=== PATIENT | female | born 1960 | race Caucasian/White ===

== ENCOUNTER 2020-01-01 16:49 | Inpatient (IN) ==
[2020-01-01] MEDS ORDERED: SODIUM CHLORIDE 0.9% 1000ML 1,000 ML IV SCH (17:30)
[2020-01-01] MEDS ORDERED: ONDANSETRON INJ 2 MG/ML 2 ML VIAL IV STA (17:30)
[2020-01-01] MEDS: MoRPHine SULFATE 4 MG/ML 1 ML CARP\\VIAL IV PRN ×4 (17:41→23:25)
[2020-01-01] MEDS ORDERED: IOVERSOL 100ml IV ONE (17:43)
[2020-01-01 17:47] LABS: Basophils # (auto) 0.02 K/uL (0-0.2); Basophils % (auto) 0.2 %; Eosinophils # (auto) 0.05 K/uL (0-0.5); Eosinophils % (auto) 0.4 %; Hematocrit (blood only) 50.6 % (37-47); Hemoglobin 17.1 g/dL (12.0-16.0); Immature Granulocytes # (auto) 0.02 K/uL (0.00-0.02); Immature Granulocytes % (auto) 0.2 %; Lymphocytes # (auto) 2.13 K/uL (1.2-3.4); Lymphocytes % (auto) 16.9 %; Mean Corpuscular Hemoglobin 31.1 pg (25-34); Mean Corpuscular Hgb Conc 33.8 g/dL (32-36); Mean Platelet Volume 11.7 fL (7.4-10.4); Monocytes # (auto) 0.99 K/uL (0.11-0.59); Monocytes % (auto) 7.9 %; Neutrophils # (auto) 9.39 K/uL (1.4-6.5); Neutrophils % (auto) 74.4 %; Platelet Count 238 K/uL (130-400); RDW Coefficient of Variation 14.3 % (11.5-14.5); RDW Standard Deviation 48.4 fL (36.4-46.3)
[2020-01-01 17:56] LABS: iSTAT Hemoglobin 17.7 g/dl (12.0-16.0); iSTAT Ionized Calcium 1.16 mmol/l (1.12-1.32); iSTAT Potassium 3.9 mmol/L (3.3-5.0)
--- NOTE | 2020-01-01 17:58 | Emergency Department Note ---
Impression & Plan Diverticulitis, Abdominal pain ED Provider Note NAME: PATY RIGGINS AGE: 59 SEX: F : 1960 ARRIVES VIA: Walk-In INFORMANT: Patient, ED PROVIDER(S): Josef Regalado DO CHIEF COMPLAINT: Abdominal pain HPI: The patient is a 59-year-old female who presented to the emergency department through triage for an evaluation of abdominal pain. The patient has a history of diverticulitis. Approximately 2 to 3 days ago she started having abdominal pain which was lower. She also started having fever. The patient states that she has had constipation. She started noticing severe nausea. The patient states her symptoms are moderate to severe at this time. She went to see her primary care physician and was sent to the emergency department because of severe abdominal pain with concerns for an acute abdomen. The patient denies having any chest pain. She denies having any difficulty breathing. The patient denies having any rectal bleeding. She states that normally she does note some rectal bleeding with her diverticular disease. The patient did not take any medication for fever recently. She has been taking [id number] medication for pain with only minimal relief. ROS: See above HPI for pertinent positives & negatives. A total of 10 systems reviewed and were otherwise negative. PAST MEDICAL HISTORY: See Below PAST SURGICAL HISTORY: See Below FAMILY HISTORY: See Below SOCIAL HISTORY: See Below HOME MEDICATIONS: See Below ALLERGIES: See Below VITALS: See Below PHYSICAL EXAMINATION: GENERAL: The patient is awake and alert. She is very anxious appearing and appears to be uncomfortable. EYES: The conjunctivae are clear. The pupils are round and reactive. EARS, NOSE, MOUTH AND THROAT: The nose is without any evidence of any deformity. Mucous membranes are moist. Tongue is midline. NECK: The neck is nontender and supple. RESPIRATORY: Normal respiratory effort is noted there is no evidence of wheezing rhonchi or rales CARDIOVASCULAR: Regular rate and rhythm noted there no murmurs rubs or gallops normal S1 normal S2. GASTROINTESTINAL: The abdomen is mildly distended but soft. There is significant guarding in both lower quadrants. There is specific tenderness in the mid right quadrant. MUSCULOSKELETAL/EXTREMITIES: There is no evidence of gross deformity full range of motion is noted in the hips and shoulders. SKIN: There is no obvious evidence of any rash. There are no petechiae, pallor or cyanosis noted. NEUROLOGIC: Patient is awake alert and oriented x3. MEDICAL DECISION MAKING: The patient is a 59-year-old female who presented to the emergency department for an evaluation of lower abdominal pain. The patient has a history of diverticulitis and was seen at her primary care physician's office. She was sent to the emergency department because of the severity of pain. On my evaluation the patient appeared to have very significant abdominal pain. She was guarding in the lower abdomen. I was very concerned this could represent a surgical abdomen. For this reason further laboratory and radiographic studies were obtained including a CT the abdomen and pelvis. This appears to be consistent with significant diverticulitis as well as dilated small bowel. This could represent a reactive ileus or possibly an early small bowel obstruction. For this reason I discussed her case with the on-call [facility] group. They have agreed to evaluate the patient in the emergency department for further management and disposition. I discussed the patient's laboratory and radiographic studies with her. She was treated with IV fluids IV pain medication and IV antibiotics. She was feeling much better on subsequent reevaluation. Triage Nursing notes reviewed. Prior medical records reviewed Vital Signs: reviewed and remarkable for no significant abnormalities Differential diagnosis: Etiologies such as appendicitis, diverticulitis, obstruction, inflammatory bowel disease, renal colic, PUD, biliary pathology, pancreatitis, mesenteric ischemia, aortic pathology, infections, genitourinary, UTI, perforated viscus, as well as others were entertained. ER treatment provided: See below Diagnostics interpreted by me: ECG: none Cardiac Monitoring: An order was placed for continuous cardiac monitoring. The monitor shows a rate of 88 with sinus rhythm. Laboratory studies: As stated above and show below. Imaging studies: See below Consultation(s): 1900: I discussed this case with Connie who is on-call for the [facility]. They will evaluate the patient in the emergency department f or further management and disposition. Past Med/Surg History Medical History Fibromyalgia (Chronic) HLD (hyperlipidemia) (Chronic) Multiple sclerosis (Chronic) Tobacco use disorder (Chronic) Family History Other Family history non-contributory Social History Smoking Status: Current every day smoker Tobacco Type: Cigarettes Second Hand Exposure: No; Hx Alcohol Use: Yes Alcohol type: beer, wine and hard liquor Hx Substance Use: No Preferred Language: Kazakh Communication Ability: Effective Beliefs That Will Affect Care: None Current Living Situation: Spouse Feels Safe at Home: Yes Allergies Allergies Allergy/AdvReac Type Severity Reaction Status Date / Time amoxicillin AdvReac Intermediate YEAST Verified 10/31/19 11:38 INFECTION Home Meds Home Medications Medication Instructions Recorded Confirmed omeprazole 20 mg PO HS 04/10/18 11/12/19 Previous Rx's Medication Instructions Recorded metoprolol succinate 25 mg 25 mg PO DAILY #90 tab 05/09/19 tablet,extended release 24 hr aspirin 81 mg tablet,delayed 81 mg PO DAILY #90 tab 06/01/19 release atorvastatin 80 mg tablet 80 mg PO QPM #90 tab 06/01/19 clopidogrel 75 mg tablet 75 mg PO DAILY #90 tab 11/26/19 Results & Data (ED) Vital Signs Vital Signs - 24 hr 01/01/20 16:56 Temperature 36.9 C Temperature Source Oral Pulse Rate 100 H Pulse Rhythm Regular Pulse Strength Normal Respiratory Rate 18 Respiratory Effort / Characteristics Non-Labored Spontaneous Respiratory Depth Normal Respiratory Pattern Regular Blood Pressure 111/79 Blood Pressure Mean 89 Blood Pressure Position Sitting Pulse Oximetry 96 Oxygen Delivery Method Room Air Sepsis Recent Fever Within 48 Hours No Sepsis New/Unexplained Change in Mental Status No Sepsis Action Taken by Nursing No Action Required Home Medications Current Medication List: was personally reviewed by me Laboratory Data Attestation: I reviewed the patient's lab results. Result diagrams: 01/01/20 17:30 01/01/20 17:30 Lab Results 01/01/20 01/01/20 01/01/20 Range/Units 17:30 17:30 17:42 WBC 12.60 H (4.8-10.8) K/uL RBC 5.50 H (4.2-5.4) M/uL Hgb 17.1 H (12.0-16.0) g/dL POC Hgb 17.7 H (12.0-16.0) g/dl Hct 50.6 H (37-47) % POC Hct 52 H (37-47) % MCV 92.0 (80-100) fL MCH 31.1 (25-34) pg MCHC 33.8 (32-36) g/dL RDW Std Deviation 48.4 H (36.4-46.3) fL RDW Coeff of Rick 14.3 (11.5-14.5) % Plt Count 238 (130-400) K/uL MPV 11.7 H (7.4-10.4) fL Immature Gran % (Auto) 0.2 % Neut % (Auto) 74.4 % Lymph % (Auto) 16.9 % [place] % (Auto) 7.9 % Eos % (Auto) 0.4 % Baso % (Auto) 0.2 % Neut # (Auto) 9.39 H (1.4-6.5) K/uL Lymph # (Auto) 2.13 (1.2-3.4) K/uL [place] # (Auto) 0.99 H (0.11-0.59) K/uL Eos # (Auto) 0.05 (0-0.5) K/uL Baso # (Auto) 0.02 (0-0.2) K/uL Immature Gran # (Auto) 0.02 (0.00-0.02) K/uL POC Sodium 136 (135-144) mmol/L Sodium 134 L (136-145) mmol/L POC Potassium 3.9 (3.3-5.0) mmol/L Potassium 3.9 (3.5-5.1) mmol/L POC Chloride 103 (101-112) mmol/L Chloride 105 (98-107) mmol/L Carbon Dioxide 22 (21-32) mmol/L POC Total CO2 22 L (24-31) mmol/L Anion Gap 7.0 (3-11) POC Anion Gap 15.0 L (16-25) mmol/L POC BUN 15 (7-18) mg/dl BUN 12 (7-18) mg/dl Creatinine 1.17 (0.6-1.2) mg/dl POC Creatinine 1.0 (0.6-1.3) mg/dl Est Cr Clr Drug Dosing 57.5 ml/min Est GFR ( Amer) 58.7 Est GFR (Non-Af Amer) 50.6 BUN/Creatinine Ratio 10.6 (10-20) Glucose 81 (70-99) mg/dl POC Glucose (other) 85 (70-99) mg/dl Calcium 9.8 (8.5-10.1) mg/dl POC Ioniz Calcium Monty 1.16 (1.12-1.32) mmol/l Total Bilirubin 1.0 (0.2-1) mg/dl AST 21 (15-37) U/L ALT 50 (12-78) U/L Alkaline Phosphatase 105 (45-117) U/L Total Protein 7.9 (6.4-8.2) gm/dl Albumin 3.6 (3.4-5.0) gm/dl Globulin 4.3 H (2.5-4.0) gm/dl Albumin/Globulin Ratio 0.8 L (0.9-2) Lipase 97 (73-393) U/L Specimen Hemolysis Administered Medications Morphine Sulfate (Morphine Sulfate) 4 mg IV Q15M PRN PRN Reason: Pain Stop: 01/15/20 17:29 Last Admin: 01/01/20 18:12 Dose: 4 mg Documented by: [id number] Admin: 01/01/20 17:41 Dose: 4 mg Documented by: [id number] Discontinued Medications Fluconazole (Diflucan) 150 mg PO NOW ONE Stop: 01/01/20 18:16 Last Admin: 01/01/20 18:43 Dose: 150 mg Documented by: [id number] Sodium Chloride (Nss 1000ml) 1,000 mls @ 999 mls/hr IV .Q1H1M [place] Stop: 01/01/20 18:30 Last Infusion: 01/01/20 18:40 Dose: 0 mls/hr Documented by: [id number] Admin: 01/01/20 17:41 Dose: 999 mls/hr Documented by: [id number] Piperacillin Sod/Tazobactam Sod (Zosyn) 4.5 gm in 120 mls @ 240 mls/hr IV NOW ONE Stop: 01/01/20 18:36 Last Infusion: 01/01/20 18:46 Dose: 0 mls/hr Documented by: [id number] Admin: 01/01/20 18:19 Dose: 240 mls/hr Documented by: [id number] Ioversol (Optiray 320 100ml) 93 ml IV ONCE ONE Stop: 01/01/20 17:44 Last Admin: 01/01/20 17:44 Dose: 93 ml Documented by: [id number] Ondansetron HCl (Zofran) 4 mg IV NOW STA Stop: 01/01/20 17:31 Last Admin: 01/01/20 17:41 Dose: 4 mg Documented by: [id number] Imaging Data Radiologist's Impression: CT SCAN OF THE ABDOMEN AND PELVIS WITH IV CONTRAST CLINICAL HISTORY: Right lower quadrant abdominal pain. COMPARISON STUDY: Abdominal CT dated 12/06/2017. TECHNIQUE: Following the IV administration of 93 cc of Optiray 320, CT scan of the abdomen and pelvis is performed from the lung bases to the proximal femora. Images are reviewed in the axial, sagittal, and coronal planes. IV contrast was administered without complication. A dose lowering technique was utilized adhering to the principles of ALARA. CT DOSE: 968.68 mGy.cm FINDINGS: Lung bases: The heart is normal in size and without pericardial effusion. There is elevation of left hemidiaphragm and mild bibasilar atelectasis. The lung bas es are otherwise clear as visualized. There is a tiny hiatal hernia. Liver: The contrast-enhanced liver is normal in size, contour, and attenuation. There is no intrahepatic biliary ductal dilatation. The hepatic veins and portal veins are patent. Gallbladder: Unremarkable. Spleen: Normal in size and attenuation. Pancreas: Mildly atrophic and grossly unremarkable. Adrenal glands: Unremarkable. Kidneys: The contrast enhanced kidneys demonstrate cortical atrophy and are without hydronephrosis. An extrarenal pelvis is noted on the left. The kidneys enhance symmetrically. Scattered subcentimeter cortical hypodensities likely represent cysts but are too small for definitive characterization. Abdominal vasculature: The abdominal aorta is normal in course and caliber noting moderate atherosclerotic calcification. Bowel: There is moderate colonic diverticulosis. There is significant wall thickening and edema involving the sigmoid colon with surrounding pericolonic inflammation and trace fluid. Findings are consistent with acute diverticulitis. No organized fluid collection is seen to indicate abscess. The upstream colon is mildly distended and fluid-filled. No significant colonic wall thickening or pericolonic inflammation is seen. Scattered subcentimeter pericolonic lymph nodes are noted around the sigmoid. The appendix is well-visualized and normal. Peritoneum: There is no intraperitoneal free air or abdominal ascites. Lymphadenopathy: None. Pelvic viscera: The bladder is normal as visualized. The uterus is surgically absent. No adnexal lesion is seen. Skeletal structures: The skeletal structures are osteopenic. Mild lumbosacral spondylosis is noted. No lytic or blastic lesions are seen. IMPRESSION: 1. There is moderate colonic diverticulosis with evidence of acute sigmoid diverticulitis. 2. No intraperitoneal free air is identified and there is no organized fluid collection to suggest abscess. 3. The upstream colon is mildly distended and fluid-filled. This could represent a mild reactive ileus or possibly mild colonic obstruction secondary to inflamm ation/edema of the sigmoid. Nonemergent follow-up colonoscopy is recommended to exclude the less likely possibility of obstructing mass lesion. 4. The appendix is normal in appearance. 5. Additional findings as above. ACT 112: Negative or not required by law. Electronically signed by: Mumtaz Suggs M.D. 01/01/2020 6:37 PM Dictated: 01/01/201828 Transcribed: 01/01/201828 Blood Pressure Blood Pressure Findings: Normal blood pressure Discharge Plan Visit Data Chief Complaint: Abdominal Pain Stated Complaint: ABD PAIN, FEVER, NAUSEA, VOMITING ED Provider: Josef Regalado Discharge Problem: Diverticulitis, Abdominal pain Patient Disposition: Being Evaluated by Hospitalist Condition: Good Forms Stand Alone Forms: [facility] [employer] Prescriptions Prescriptions: No Action metoprolol succinate 25 mg tablet extended release 24 hr 25 mg PO DAILY Qty: 90 RF: 2 aspirin 81 mg tablet,delayed release (DR/EC) 81 mg PO DAILY Qty: 90 RF: 2 atorvastatin 80 mg tablet 80 mg PO QPM Qty: 90 RF: 2 clopidogrel 75 mg tablet 75 mg PO DAILY Qty: 90 RF: 3 omeprazole 20 mg Capsule,Delayed Release(Dr/Ec) 20 mg PO HS RF: 0 Referrals Referrals: [place] MD [Primary Care Provider] -
[2020-01-01 18:05] LABS: Albumin Level 3.6 gm/dl (3.4-5.0); BUN Creatinine Ratio 10.6 (10-20); Calcium 9.8 mg/dl (8.5-10.1); Creatinine Clr Calc Pharmacy 57.5 ml/min; Est GFR (African American) 58.7; Est GFR (Non-African American) 50.6; Potassium 3.9 mmol/L (3.5-5.1)
[2020-01-01] MEDS ORDERED: PIPERACILLIN/TAZOBACTAM 4.5 GM/120 ML BAG IV ONE (18:07)
[2020-01-01] MEDS ORDERED: PIPERACILL/TAZOBAC CONSULT ACTIVE PRN ×2 (18:07→20:46)
[2020-01-01] MEDS ORDERED: FLUCONAZOLE 50 MG TAB PO ONE (18:15)
[2020-01-01 18:38] LABS: Albumin Globulin Ratio 0.8 (0.9-2); Globulin 4.3 gm/dl (2.5-4.0); Total Protein 7.9 gm/dl (6.4-8.2)
--- NOTE | 2020-01-01 18:38 | CT Scan Report ---
CT SCAN OF THE ABDOMEN AND PELVIS WITH IV CONTRAST CLINICAL HISTORY: Right lower quadrant abdominal pain. COMPARISON STUDY: Abdominal CT dated 12/06/2017. TECHNIQUE: Following the IV administration of 93 cc of Optiray 320, CT scan of the abdomen and pelvi s is performed from the lung bases to the proximal femora. Images are reviewed in the axial, sagittal , and coronal planes. IV contrast was administered without complication. A dose lowering technique wa s utilized adhering to the principles of ALARA. CT DOSE: 968.68 mGy.cm FINDINGS: Lung bases: The heart is normal in size and without pericardial effusion. There is elevation of left hemidiaphragm and mild bibasilar atelectasis. The lung bases are otherwise clear as visualized. There is a tiny hiatal hernia. Liver: The contrast-enhanced liver is normal in size, contour, and attenuation. There is no intrahepa tic biliary ductal dilatation. The hepatic veins and portal veins are patent. Gallbladder: Unremarkable. Spleen: Normal in size and attenuation. Pancreas: Mildly atrophic and grossly unremarkable. Adrenal glands: Unremarkable. Kidneys: The contrast enhanced kidneys demonstrate cortical atrophy and are without hydronephrosis. A n extrarenal pelvis is noted on the left. The kidneys enhance symmetrically. Scattered subcentimeter cortical hypodensities likely represent cysts but are too small for definitive characterization. Abdominal vasculature: The abdominal aorta is normal in course and caliber noting moderate atheroscle rotic calcification. Bowel: There is moderate colonic diverticulosis. There is significant wall thickening and edema invol ving the sigmoid colon with surrounding pericolonic inflammation and trace fluid. Findings are consis tent with acute diverticulitis. No organized fluid collection is seen to indicate abscess. The upstre am colon is mildly distended and fluid-filled. No significant colonic wall thickening or pericolonic inflammation is seen. Scattered subcentimeter pericolonic lymph nodes are noted around the sigmoid. T he appendix is well-visualized and normal. Peritoneum: There is no intraperitoneal free air or abdominal ascites. Lymphadenopathy: None. Pelvic viscera: The bladder is normal as visualized. The uterus is surgically absent. No adnexal lesi on is seen. Skeletal structures: The skeletal structures are osteopenic. Mild lumbosacral spondylosis is noted. N o lytic or blastic lesions are seen. IMPRESSION: 1. There is moderate colonic diverticulosis with evidence of acute sigmoid diverticulitis. 2. No intraperitoneal free air is identified and there is no organized fluid collection to suggest ab scess. 3. The upstream colon is mildly distended and fluid-filled. This could represent a mild reactive ileu s or possibly mild colonic obstruction secondary to inflammation/edema of the sigmoid. Nonemergent fo llow-up colonoscopy is recommended to exclude the less likely possibility of obstructing mass lesion. 4. The appendix is normal in appearance. 5. Additional findings as above. ACT 112: Negative or not required by law. Electronically signed by: Mumtaz Suggs M.D. 01/01/2020 6:37 PM
--- NOTE | 2020-01-01 20:08 | History & Physical Report ---
Date of Service January 01, 2020 Assessment & Plan (1) Acute diverticulitis of intestine: (2) Ileus: This is a 59-year-old female with significant PMH of CAD with history of 1 FITZ to the mid circumflex in 2018, HLD, MS, tobacco abuse, GERD who presents to ED secondary to left lower quadrant pain x2 days. In ED patient remained hemodynamically stable, on admission she was mildly tachycardic but this was improved during my evaluation. Lab work notable for leukocytosis at 12.6K, H&H 17.1 and 50.6, platelet 238, sodium 134, BUN 12, creatinine 1.17, LFTs WNL. CT scan abdomen pelvis notable moderate colonic diverticulosis with evidence of acute sigmoid diverticulitis. No intraperitoneal free air is identified and there is no organized fluid collection to suggest abscess. The upstream colon is mildly distended and fluid-filled. This could represent a mild reactive ileus or possibly mild colonic obstruction secondary to inflammation/edema of the sigmoid. Nonemergent follow-up colonoscopy is recommended to exclude the less likely possibility of obstructing mass lesion. In ED she received IVF, IV morphine and IV Zosyn. Pt does not meet sepsis criteria on admission per current CMS guidelines, pt with leukocytosis 12.6k, but afebrile, HR 80s, RR 19 admit to med tele continue IV zosyn bowel rest, NPO except sips, chips, meds IVF NSS @ 110cc/hr 1g APAP q8hr, prn morphine severe pain,antiemetics consult general surgery blood cultures ordered (3) Dehydration: clinically, mild elevation in H/H, Cr not RENA continue IVF monitor renal fxn (4) Coronary artery disease: no chest pain/sob continue ASA, plavix, statin, metoprolol (5) HLD (hyperlipidemia): continue statin (6) Multiple sclerosis: no acute exac not on any medications monitor (7) Tobacco use disorder: 1 pack/week x 40 years no tobacco in past few days due to ill feeling encourage cessation no nicotine patch at this time (8) DVT prophylaxis: Lovenox, encourage ambulation Disposition: admit to med tele Follow up: PCP Dr. Grove upon discharge Pt was seen and examined in collaboration with Dr. Gutiérrez, please see addendum History of Present Illness Chief Complaint: Left lower quadrant abdominal pain x2 days. Primary Care Provider: Eagle Grove MD This is a 59-year-old female with significant PMH of CAD with history of 1 FITZ to the mid circumflex in 2018, HLD, MS, tobacco abuse, GERD who presents to ED secondary to left lower quadrant pain x2 days. Symptoms initially started on Tuesday with complaints of left lower quadrant abdominal pain with radiation to suprapubic and right lower quadrant. Pain is mostly constant, waxes and wanes in severity, made worse with p.o. intake, improved with rest, tried OTC APAP with no relief and is currently 8/10. She has had history of diverticulitis in the past, approximately 1 a year. She denies prior history of colonoscopy. This episode is different as for the past 2 days has also been experiencing nausea and emesis of clear, white phlegm. She did have one episode of fever, low 100s with associated chills. Denies any sweats, lightheadedness, dizziness, chest pain, shortness of breath, palpitations, cough, dysuria, increased urgency or frequency with urination, melena, medic easier, diarrhea. Her last normal BM was 4 days ago and has been more constipated. Typically is not constipated. Prior episodes of diverticulitis have presented with hematochezia. In ED patient remained hemodynamically stable, on admission she was mildly tachycardic but this was improved during my evaluation. Lab work notable for leukocytosis at 12.6K, H&H 17.1 and 50.6, platelet 238, sodium 134, BUN 12, creatinine 1.17, LFTs WNL. CT scan abdomen pelvis notable moderate colonic diverticulosis with evidence of acute sigmoid diverticulitis. No intraperitoneal free air is identified and there is no organized fluid collection to suggest abscess. The upstream colon is mildly distended and fluid-filled. This could represent a mild reactive ileus or possibly mild colonic obstruction secondary to inflammation/edema of the sigmoid. Nonemergent follow-up colonoscopy is recommended to exclude the less likely possibility of obstructing mass lesion. In ED she received IVF, IV morphine and IV Zosyn. Allergies Allergy/AdvReac Type Severity Reaction Status Date / Time amoxicillin AdvReac Intermediate YEAST Verified 01/01/20 19:24 INFECTION Home Medications Home Medications Medication Instructions Recorded Confirmed Type omeprazole 20 mg PO HS 11/19/18 08/11/20 History metoprolol succinate 25 mg 25 mg PO DAILY #90 tab 05/09/19 01/01/20 Rx tablet,extended release 24 hr aspirin 81 mg tablet,delayed 81 mg PO DAILY #90 tab 06/01/19 01/01/20 Rx release clopidogrel 75 mg tablet 75 mg PO DAILY #90 tab 11/26/19 01/01/20 Rx atorvastatin 80 mg PO DAILY 01/01/20 01/01/20 History Past Med/Surg History Medical History Coronary artery disease HLD (hyperlipidemia) Multiple sclerosis ST elevation myocardial infarction (STEMI) of inferior wall Tibial plateau fracture, left (05/01/14) Tobacco use disorder Surgical History History of cardiac cath 1 FITZ to mid circumflex S/P hammer toe correction "10/2017" S/P hysterectomy S/P ORIF (open reduction internal fixation) fracture "Of left tibial plateau fracture in 2013" Status post angioplasty with stent Family History Sister Bipolar disorder Mother Stroke Father Coronary heart disease Myocardial infarction Other Family history non-contributory Social History Smoking Status: Current every day smoker Tobacco Type: Cigarettes Years Smoked: 40; Cigarettes Per Day: 1-3; Second Hand Exposure: No; Do You Dip or Chew Tobacco: No; Hx Alcohol Use: No Hx Substance Use: No Preferred Language: Sinhala Communication Ability: Effective Business Services Director Required: No Beliefs That Will Affect Care: None Current Living Situation: Spouse current occupational status: employed current occupation: [employer] Feels Safe at Home: Yes Review of Systems Review of Systems: All systems reviewed & are unremarkable except as noted in HPI & below Physical Exam Physical Exam: Constitutional: WD/WN, vitals as above, NAD, sitting up in bed, pleasant, conversing easily Head: Normocephalic, Atraumatic Eyes: PERRL, conjunctivae normal, anicteric sclerae ENMT: external ear and nose normal, oropharynx normal Neck: trachea midline, no thyromegaly normal visual inspection Respiratory: normal respiratory effort, lungs clear to auscultation, no wheeze, rales, rhonchi. Normal insp/exp effort, no accessory muscle use Cardiovascular: RRR, no murmur, no edema Vessels: no JVD or carotid bruit Chest: normal inspection of chest Abdomen: Soft, hypoactive bowel sounds, obese abdomen, tender to light and deep palpation in right lower quadrant, suprapubic area and left lower quadrant, no rebound, no guarding, no rigidity, no hepatosplenomegaly Musculoskeletal: no cyanosis or clubbing, extremities motor strength 5/5 Skin: no rashes, warm and dry normal turgor Neurologic: PERRL, EOMI, accommodation nl, no face palsy, no dysarthria CN's II-XI intact bilaterally and moves all extremities Psychiatric: A+Ox3, euthymic affect Lymphatic: no cervical or axillary lymphadenopathy : deferred Results & Data Results & Data ([facility]) Vital Signs (Past 12 Hours) Vital Signs Temp Pulse Pulse Resp BP BP Pulse Ox 01/01/20 19:43 88 19 137/95 95 01/01/20 16:56 36.9 C 100 H 18 111/79 96 Laboratory Results Short CBC 01/01/20 Range/Units 17:30 WBC 12.60 H (4.8-10.8) K/uL Hgb 17.1 H (12.0-16.0) g/dL Hct 50.6 H (37-47) % Plt Count 238 (130-400) K/uL BMP 01/01/20 17:30 Sodium 134 L Potassium 3.9 Chloride 105 Carbon Dioxide 22 BUN 12 Creatinine 1.17 Glucose 81 Calcium 9.8 Liver Function 01/01/20 Range/Units 17:30 Total Bilirubin 1.0 (0.2-1) mg/dl AST 21 (15-37) U/L ALT 50 (12-78) U/L Alkaline Phosphatase 105 (45-117) U/L Albumin 3.6 (3.4-5.0) gm/dl Diagnostic Findings CT abd/pelvis: FINDINGS: Lung bases: The heart is normal in size and without pericardial effusion. There is elevation of left hemidiaphragm and mild bibasilar atelectasis. The lung ba ses are otherwise clear as visualized. There is a tiny hiatal hernia. Liver: The contrast-enhanced liver is normal in size, contour, and attenuation. There is no intrahepatic biliary ductal dilatation. The hepatic veins and portal veins are patent. Gallbladder: Unremarkable. Spleen: Normal in size and attenuation. Pancreas: Mildly atrophic and grossly unremarkable. Adrenal glands: Unremarkable. Kidneys: The contrast enhanced kidneys demonstrate cortical atrophy and are without hydronephrosis. An extrarenal pelvis is noted on the left. The kidneys enhance symmetrically. Scattered subcentimeter cortical hypodensities likely represent cysts but are too small for definitive characterization. Abdominal vasculature: The abdominal aorta is normal in course and caliber noting moderate atherosclerotic calcification. Bowel: There is moderate colonic diverticulosis. There is significant wall thickening and edema involving the sigmoid colon with surrounding pericolonic inflammation and trace fluid. Findings are consistent with acute diverticulitis. No organized fluid collection is seen to indicate abscess. The upstream colon is mildly distended and fluid-filled. No significant colonic wall thickening or pericolonic inflammation is seen. Scattered subcentimeter pericolonic lymph nodes are noted around the sigmoid. The appendix is well-visualized and normal. Peritoneum: There is no intraperitoneal free air or abdominal ascites. Lymphadenopathy: None. Pelvic viscera: The bladder is normal as visualized. The uterus is surgically absent. No adnexal lesion is seen. Skeletal structures: The skeletal structures are osteopenic. Mild lumbosacral spondylosis is noted. No lytic or blastic lesions are seen. IMPRESSION: 1. There is moderate colonic diverticulosis with evidence of acute sigmoid diverticulitis. 2. No intraperitoneal free air is identified and there is no organized fluid collection to suggest abscess. 3. The upstream colon is mildly distended and fluid-filled. This could represent a mild reactive ileus or possibly mild colonic obstruction secondary to inflammation/edema of the sigmoid. Nonemergent follow-up colonoscopy is recommended to exclude the less likely possibility of obstructing mass lesion. 4. The appendix is normal in appearance. 5. Additional findings as above. Medications Administered Morphine Sulfate (Morphine Sulfate) 4 mg IV Q15M PRN PRN Reason: Pain Stop: 01/15/20 17:29 Last Admin: 01/01/20 19:15 Dose: 4 mg Documented by: [id number] Admin: 01/01/20 18:12 Dose: 4 mg Documented by: [id number] Admin: 01/01/20 17:41 Dose: 4 mg Documented by: [id number] Discontinued Medications Fluconazole (Diflucan) 150 mg PO NOW ONE Stop: 01/01/20 18:16 Last Admin: 01/01/20 18:43 Dose: 150 mg Documented by: [id number] Sodium Chloride (Nss 1000ml) 1,000 mls @ 999 mls/hr IV .Q1H1M [place] Stop: 01/01/20 18:30 Last Infusion: 01/01/20 18:40 Dose: 0 mls/hr Documented by: [id number] Admin: 01/01/20 17:41 Dose: 999 mls/hr Documented by: [id number] Piperacillin Sod/Tazobactam Sod (Zosyn) 4.5 gm in 120 mls @ 240 mls/hr IV NOW ONE Stop: 01/01/20 18:36 Last Infusion: 01/01/20 18:46 Dose: 0 mls/hr Documented by: [id number] Admin: 01/01/20 18:19 Dose: 240 mls/hr Documented by: [id number] Ioversol (Optiray 320 100ml) 93 ml IV ONCE ONE Stop: 01/01/20 17:44 Last Admin: 01/01/20 17:44 Dose: 93 ml Documented by: [id number] Ondansetron HCl (Zofran) 4 mg IV NOW STA Stop: 01/01/20 17:31 Last Admin: 01/01/20 17:41 Dose: 4 mg Documented by: [id number] Code Status & VTE Plan Code Status Full Code VTE Prophylaxis Plan VTE Prophylaxis will be ordered: Yes Supervising Physician Co-Signing Physician Notes Care coordinated with Connie Pardo PA-C. Agree with above note. Patient seen and examined. Please refer to her notes for full details. Vital signs reviewed. Physical exam: General exam: Alert and oriented. Not in acute distress. CVS: S1 and S2 heard, regular rate and rhythm, no murmurs. RS: Clear to auscultation, no wheezing or crackles. ABD: Soft, bowel sounds present,LLQ tenderness, no distention. SOUND RANGING CREWMEMBER: Nonfocal. EXT: No edema, no erythema. Labs: Reviewed. Assessment and plan: 59F presents with lower abdominal pain and constipation and found to have sigmoid diverticulitis. Sigmoid diverticulitis npo, iv fluids iv zosyn surgery consult colonoscopy in 6-8 weeks hx of CAD continue home meds. Other diagnosis and plan of care as per Connie Pardo PA-C.. Justus tariq. .
[2020-01-01] MEDS ORDERED: ONDANSETRON INJ 2 MG/ML 2 ML VIAL ONE (20:09)
[2020-01-01] MEDS: SODIUM CHLORIDE 0.9% 1000ML 1,000 ML IV SCH (20:58)
[2020-01-01] MEDS: ACETAMINOPHEN 1,000 MG/100 ML VIAL IV SCH (21:15)
[2020-01-01] MEDS ORDERED: METOPROLOL SUCC 25MG EXT REL TAB PO SCH (21:30)
[2020-01-01] MEDS: CLOPIDOGREL BISULFATE 75 MG TAB PO SCH (21:52)
[2020-01-01] MEDS: ATORVASTATIN 40 MG TAB PO SCH (21:52)
[2020-01-01] MEDS: ASPIRIN 81 MG ECTAB PO SCH (21:52)
[2020-01-01] MEDS: PANTOprazole 40 MG TAB PO SCH (21:52)
[2020-01-01 23:46] LABS: Appearance Urine Clear (Clear); Bacteria Urine Automated Negative (Negative); Bilirubin Urine Negative (Negative); Blood Urine 2+ (Negative); Cast Urine Automated 0 /lpf (0-5); Color Urine Yellow; Glucose Urine UA Negative (Negative); Ketones Urine 1+ (Negative); Leukocyte Esterase Urine Negative (Negative); Nitrite Urine Negative (Negative); Protein Urine Negative (Negative); RBC Urine Automated 0-4 /hpf (0-4); Specific Gravity Urine 1.045 (1.000-1.030); Urobilinogen Urine Negative (Negative)
[2020-01-02] MEDS: PIPERACILLIN/TAZOBACTAM 3.375 GM in DEXTROSE 5% 100 ML IV SCH ×4 (00:06→23:57)
[2020-01-02] MEDS: ONDANSETRON INJ 2 MG/ML 2 ML VIAL IV PRN ×3 (00:10→13:12)
[2020-01-02] MEDS: SODIUM CHLORIDE 0.9% 1000ML 1,000 ML IV SCH ×3 (05:50→23:50)
--- NOTE | 2020-01-02 05:50 | Surgery Consultation ---
Date of Consultation January 02, 2020 Assessment & Plan (1) Acute diverticulitis of intestine: Patient has had at least 3 episodes of diverticulitis has never been scoped there is no family history of colonic cancer At the present time there is no acute surgical indication hopefully this will resolve with antibiotics and the colonic distention proximal is just the reaction to the acute diverticulitis We will continue present antibiotic therapy I mentioned to her that we would like to start oral intake once she starts passing some flatus and having no evidence of possible bowel obstructi Diverticular disease was explained to the patient including indications of surgery timing of surgery preop evaluation prior to surgery At this time we will continue present therapy and consider colonoscopy as an outpatient if the diverticulitis resolves or if she has persistent obstruction proximal that that may be done sooner rather than later The patient definitely needs surgical intervention hopefully can be done electively in the future the patient understands her situation and all her questions were answered We will follow along with you Present on Admission?: Yes History of Present Illness Reason for Consultation: bowel obstruction Attending Physician: Justus Park MD History of Present Illness This 59-year-old female on Tuesday started experience some abdominal pain with associated nausea a progressive became worse to the point that on Tuesday she started having some chills and fever eventually came into the emergency room last evening was found to have acute diverticulitis possible colonic obstruction proximal whether it secondary to diverticuli or other etiology is not clear at this present time The patient has had acute diverticulitis yearly for last 3 years in fact she was hospitalized possibly a year ago for an acute episode the other times were treated as an outpatient Interesting she has never had a colonoscopy Patient works with her have a [employer] company She denies any nausea at this morning Her past medical history is fairly unremarkable Allergies Allergy/AdvReac Type Severity Reaction Status Date / Time amoxicillin AdvReac Intermediate YEAST Verified 01/01/20 19:24 INFECTION Home Medications Home Medications Medication Instructions Recorded Confirmed Type omeprazole 20 mg PO HS 04/10/18 01/01/20 History metoprolol succinate 25 mg 25 mg PO DAILY #90 tab 05/09/19 01/01/20 Rx tablet,extended release 24 hr aspirin 81 mg tablet,delayed 81 mg PO DAILY #90 tab 06/01/19 01/01/20 Rx release clopidogrel 75 mg tablet 75 mg PO DAILY #90 tab 11/26/19 01/01/20 Rx atorvastatin 80 mg PO DAILY 01/01/20 01/01/20 History Patient History Medical History Coronary artery disease HLD (hyperlipidemia) Multiple sclerosis ST elevation myocardial infarction (STEMI) of inferior wall Tibial plateau fracture, left (05/01/14) Tobacco use disorder Surgical History History of cardiac cath 1 FITZ to mid circumflex S/P hammer toe correction "10/2017" S/P hysterectomy S/P ORIF (open reduction internal fixation) fracture "Of left tibial plateau fracture in 2013" Status post angioplasty with stent Family History Sister Bipolar disorder Mother Stroke Father Coronary heart disease Myocardial infarction Other Family history non-contributory Social History Smoking Status: Current every day smoker Tobacco Type: Cigarettes Years Smoked: 40; Cigarettes Per Day: 1-3; Second Hand Exposure: No; Do You Dip or Chew Tobacco: No; Hx Alcohol Use: No Hx Substance Use: No Preferred Language: Burmese Communication Ability: Effective Engineering Professionals Required: No Beliefs That Will Affect Care: None Current Living Situation: Spouse current occupational status: employed current occupation: [employer] [place] Feels Safe at Home: Yes Physical Exam Physical Exam: She is alert coherent and in no distress Constitutional: WD/WN, vitals as above well developed, well nourished and average body habitus Eyes: PERRL, conjunctivae normal, anicteric sclerae ENMT: external ear and nose normal, oropharynx normal Neck: trachea midline, no thyromegaly normal visual inspection Respiratory: normal respiratory effort, lungs clear to auscultation normal respiratory effort Cardiovascular: RRR, no murmur, no edema Rate/Rhythm: regular rate Gastrointestinal (Abdomen): Abdomen is softly distended minimal abdominal tenderness mild guarding in the left lower quadrant Skin: no rashes, warm and dry Results & Data ([facility]) Vital Signs (Past 12 Hours) Vital Signs Temp Pulse Pulse Resp BP BP Pulse Ox 01/02/20 05:11 36.5 C 55 L 18 96/65 L 95 01/01/20 23:44 100/70 01/01/20 23:38 36.6 C 59 L 18 84/52 L 88/55 L 95 01/01/20 22:20 59 L 01/01/20 20:47 83 01/01/20 20:35 36.5 C 88 18 101/69 94 01/01/20 19:43 88 19 137/95 95 laboratory and CAT scan was reviewed PG Care Time/CCT Total # of Minutes Spent Total Time Spent with Patient: Total time spent is greater than 50% in coordination of care (as documented) at patient's floor/unit and/or counseling patient: Coding Level of Care Code 96953 Inpt Consult Level 4 Diagnoses Acute diverticulitis of intestine K57.92
[2020-01-02] MEDS: ACETAMINOPHEN 1,000 MG/100 ML VIAL IV SCH ×3 (06:00→22:28)
[2020-01-02] MEDS ORDERED: SODIUM CHLORIDE 0.9% 1000ML 1,000 ML IV SCH (07:45)
[2020-01-02] MEDS: ENOXAPARIN INJ 40 MG/0.4 ML SYR SQ SCH (08:59)
[2020-01-02] MEDS ORDERED: METOPROLOL SUCC 25MG EXT REL TAB PO SCH (09:00)
[2020-01-02] MEDS ORDERED: ATORVASTATIN 40 MG TAB PO SCH (09:00)
[2020-01-02] MEDS ORDERED: ASPIRIN 81 MG ECTAB PO SCH (09:00)
[2020-01-02] MEDS ORDERED: CLOPIDOGREL BISULFATE 75 MG TAB PO SCH (09:00)
[2020-01-02] MEDS: MoRPHine SULFATE 4 MG/ML 1 ML CARP\\VIAL IV PRN ×3 (09:08→18:05)
[2020-01-02 10:31] LABS: Basophils # (auto) 0.02 K/uL (0-0.2); Basophils % (auto) 0.2 %; Eosinophils % (auto) 1.2 %; Hematocrit (blood only) 39.7 % (37-47); Hemoglobin 12.9 g/dL (12.0-16.0); Immature Granulocytes # (auto) 0.01 K/uL (0.00-0.02); Immature Granulocytes % (auto) 0.1 %; Lymphocytes # (auto) 1.93 K/uL (1.2-3.4); Lymphocytes % (auto) 22.3 %; Mean Corpuscular Hemoglobin 30.3 pg (25-34); Mean Corpuscular Hgb Conc 32.5 g/dL (32-36); Mean Corpuscular Volume 93.2 fL (80-100); Mean Platelet Volume 10.8 fL (7.4-10.4); Monocytes # (auto) 0.73 K/uL (0.11-0.59); Monocytes % (auto) 8.4 %; Neutrophils # (auto) 5.87 K/uL (1.4-6.5); Neutrophils % (auto) 67.8 %; Platelet Count 191 K/uL (130-400); RDW Coefficient of Variation 14.5 % (11.5-14.5); RDW Standard Deviation 49.2 fL (36.4-46.3); Red Blood Count 4.26 M/uL (4.2-5.4); White Blood Count 8.66 K/uL (4.8-10.8)
[2020-01-02 10:43] LABS: BUN Creatinine Ratio 10.1 (10-20); Calcium 7.4 mg/dl (8.5-10.1); Creatinine Clr Calc Pharmacy 83.9 ml/min; Est GFR (African American) 82.8; Est GFR (Non-African American) 71.4; Magnesium 1.9 mg/dl (1.8-2.4); Potassium 4.2 mmol/L (3.5-5.1)
--- NOTE | 2020-01-02 13:07 | Hospitalist Progress Note ---
Date of Service January 02, 2020 Assessment & Plan (1) Acute diverticulitis of intestine: (1) Acute diverticulitis of intestine: (2) Ileus: per admitting service notes: This is a 59-year-old female with significant PMH of CAD with history of 1 FITZ to the mid circumflex in 2018, HLD, MS, tobacco abuse, GERD who presents to ED secondary to left lower quadrant pain x2 days. In ED patient remained hemodynamically stable, on admission she was mildly tachycardic but this was improved during my evaluation. Lab work notable for leukocytosis at 12.6K, H&H 17.1 and 50.6, platelet 238, sodium 134, BUN 12, creatinine 1.17, LFTs WNL. CT scan abdomen pelvis notable moderate colonic diverticulosis with evidence of acute sigmoid diverticulitis. No intraperitoneal free air is identified and there is no organized fluid collection to suggest abscess. The upstream colon is mildly distended and fluid-filled. This could represent a mild reactive ileus or possibly mild colonic obstruction secondary to inflammation/edema of the sigmoid. Nonemergent follow-up colonoscopy is recommended to exclude the less likely possibility of obstructing mass lesion. In ED she received IVF, IV morphine and IV Zosyn. Pt does not meet sepsis criteria on admission per current CMS guidelines, pt with leukocytosis 12.6k, but afebrile, HR 80s, RR 19 admit to med tele continue IV zosyn bowel rest, NPO except sips, chips, meds IVF NSS @ 110cc/hr 1g APAP q8hr, prn morphine severe pain,antiemetics consult general surgery blood cultures ordered 01/02/20: afebrile, leukocytosis resolved blood cultures: pending Gen Surg recommendations noted, appreciate the recommendations continue IV Zosyn, IV fluids advance diet to clear liquids today monitor closely Hypotension - likely from Dehydration, Infection - BP low this AM, asymptomatic fluid bolus given, IV NSS increased - reduce Metoprolol from 25 to 12.5mg - monitor (3) Dehydration: clinically, mild elevation in H/H, Cr not RENA IV fluids increased (4) Coronary artery disease: no cardiac symptoms continue ASA, plavix, statin, metoprolol (5) HLD (hyperlipidemia): continue statin (6) Multiple sclerosis: stable monitor (7) Tobacco use disorder: 1 pack/week x 40 years counselling done (8) DVT prophylaxis: Lovenox, encourage ambulation Disposition: admit to [facility] tele Follow up: PCP Dr. Grove upon discharge Admission and Anticipated Discharge Date Admission Date: January 01, 2020 Subjective ff up for acute sigmoid diverticulitis, possible Ileus seen resting in bed, comfortable states she feels somewhat better today still has some LLQ pain minimal flatus, no BM yet denies fever/chills, has mild nausea this AM but resolved denies chest pain, palpitations, dizziness no other symptoms requesting to have diet today as she has not eaten since Tuesday Review of Systems Review of Systems: All systems reviewed & are unremarkable except as noted in HPI & below Physical Exam Physical Exam: General- oriented x 3, not in distress, speaks in sentences wi th no effort or accessory muscle use Head- atraumatic Eyes- PERRL, EOMI, anicteric ENT- oropharynx clear Neck- supple, no JVD, no adenopathy, no thyromegaly; carotids +2/2, no bruits appreciated Lungs- clear to auscultation bilaterally, no rales/wheezes Heart- normal rate, regular rhythm; no murmur, no gallop, no rub appreciated Abdomen- normal bowel sounds, nondistended, soft, nontender, no masses or hepatosplenomegaly Extremities- no pretibial edema, no calf tenderness; peripheral pulses intact Neuro- alert, oriented x 3; CN 2-12 grossly intact; motor 5/5 bilaterally;sensation 100% on all extremities; no other gross focal neurologic deficits Skin- warm & dry Results & Data Results & Data ([facility]) Vital Signs (Past 12 Hours) Vital Signs Temp Pulse Resp BP BP Pulse Ox 01/02/20 11:07 36.5 C 50 L 16 102/69 93 01/02/20 09:29 54 L 92/59 L 01/02/20 07:06 36.7 C 53 L 16 83/54 L 82/46 L 96 01/02/20 05:11 36.5 C 55 L 18 96/65 L 95 Laboratory Results Laboratory Results - last 24 hr 01/01/20 01/01/20 01/01/20 17:30 17:30 17:42 WBC 12.60 H RBC 5.50 H Hgb 17.1 H POC Hgb 17.7 H Hct 50.6 H POC Hct 52 H MCV 92.0 MCH 31.1 MCHC 33.8 RDW Std Deviation 48.4 H RDW Coeff of Rick 14.3 Plt Count 238 MPV 11.7 H Immature Gran % (Auto) 0.2 Neut % (Auto) 74.4 Lymph % (Auto) 16.9 Bowman % (Auto) 7.9 Eos % (Auto) 0.4 Baso % (Auto) 0.2 Neut # (Auto) 9.39 H Lymph # (Auto) 2.13 Bowman # (Auto) 0.99 H Eos # (Auto) 0.05 Baso # (Auto) 0.02 Immature Gran # (Auto) 0.02 POC Sodium 136 Sodium 134 L POC Potassium 3.9 Potassium 3.9 POC Chloride 103 Chloride 105 Carbon Dioxide 22 POC Total CO2 22 L Anion Gap 7.0 POC Anion Gap 15.0 L POC BUN 15 BUN 12 Creatinine 1.17 POC Creatinine 1.0 Est Cr Clr Drug Dosing 57.5 Est GFR ( Amer) 58.7 Est GFR (Non-Af Amer) 50.6 BUN/Creatinine Ratio 10.6 Glucose 81 POC Glucose (other) 85 Calcium 9.8 POC Ioniz Calcium Monty 1.16 Magnesium Total Bilirubin 1.0 AST 21 ALT 50 Alkaline Phosphatase 105 Total Protein 7.9 Albumin 3.6 Globulin 4.3 H Albumin/Globulin Ratio 0.8 L Lipase 97 Specimen Hemolysis Urine Color Urine Appearance Urine pH Ur Specific [place] Urine Protein Urine Glucose (UA) Urine Ketones Urine Blood Urine Nitrite Urine Bilirubin Urine Urobilinogen Ur Leukocyte Esterase Urine WBC (Auto) Urine RBC (Auto) U Hyaline Cast (Auto) U Epithel Cells (Auto) Urine Bacteria (Auto) 01/01/20 01/02/20 01/02/20 23:35 10:09 10:09 WBC 8.66 RBC 4.26 Hgb 12.9 D POC Hgb Hct 39.7 POC Hct MCV 93.2 MCH 30.3 MCHC 32.5 RDW Std Deviation 49.2 H RDW Coeff of Rick 14.5 Plt Count 191 MPV 10.8 H Immature Gran % (Auto) 0.1 Neut % (Auto) 67.8 Lymph % (Auto) 22.3 Bowman % (Auto) 8.4 Eos % (Auto) 1.2 Baso % (Auto) 0.2 Neut # (Auto) 5.87 Lymph # (Auto) 1.93 Bowman # (Auto) 0.73 H Eos # (Auto) 0.10 Baso # (Auto) 0.02 Immature Gran # (Auto) 0.01 POC Sodium Sodium 142 D POC Potassium Potassium 4.2 POC Chloride Chloride 115 H Carbon Dioxide 23 POC Total CO2 Anion Gap 4.0 POC Anion Gap POC BUN BUN 9 Creatinine 0.88 POC Creatinine Est Cr Clr Drug Dosing 83.9 Est GFR ( Amer) 82.8 Est GFR (Non-Af Amer) 71.4 BUN/Creatinine Ratio 10.1 Glucose 74 POC Glucose (other) Calcium 7.4 L D POC Ioniz Calcium Monty Magnesium 1.9 Total Bilirubin AST ALT Alkaline Phosphatase Total Protein Albumin Globulin Albumin/Globulin Ratio Lipase Specimen Hemolysis Urine Color Yellow Urine Appearance Clear Urine pH 5.0 Ur Specific [place] 1.045 H Urine Protein Negative Urine Glucose (UA) Negative Urine Ketones 1+ H Urine Blood 2+ H Urine Nitrite Negative Urine Bilirubin Negative Urine Urobilinogen Negative Ur Leukocyte Esterase Negative Urine WBC (Auto) 1-5 Urine RBC (Auto) 0-4 U Hyaline Cast (Auto) 0 U Epithel Cells (Auto) 5-10 H Urine Bacteria (Auto) Negative
[2020-01-02] MEDS: PROMETHAZINE HCL 12.5 MG in SODIUM CHLORIDE 0.9% 50 ML IV PRN (18:05)
[2020-01-02] MEDS: ASPIRIN 81 MG ECTAB PO SCH (20:10)
[2020-01-02] MEDS: PANTOprazole 40 MG TAB PO SCH (20:11)
[2020-01-02] MEDS: ATORVASTATIN 40 MG TAB PO SCH (20:11)
[2020-01-02] MEDS: METOPROLOL SUCC 25MG EXT REL TAB PO SCH (20:12)
[2020-01-02] MEDS: CLOPIDOGREL BISULFATE 75 MG TAB PO SCH (20:12)
[2020-01-03] MEDS: ACETAMINOPHEN 1,000 MG/100 ML VIAL IV SCH ×2 (06:09→19:47)
[2020-01-03 07:04] LABS: BUN Creatinine Ratio 5.5 (10-20); Calcium 8.3 mg/dl (8.5-10.1); Creatinine Clr Calc Pharmacy 80.1 ml/min; Est GFR (African American) 76.4; Est GFR (Non-African American) 65.9; Magnesium 1.9 mg/dl (1.8-2.4); Potassium 3.8 mmol/L (3.5-5.1)
[2020-01-03] MEDS: SODIUM CHLORIDE 0.9% 1000ML 1,000 ML IV SCH ×3 (07:45→22:37)
[2020-01-03] MEDS: ENOXAPARIN INJ 40 MG/0.4 ML SYR SQ SCH (07:45)
[2020-01-03] MEDS: PIPERACILLIN/TAZOBACTAM 3.375 GM in DEXTROSE 5% 100 ML IV SCH ×3 (08:51→23:47)
--- NOTE | 2020-01-03 10:46 | Surgery Progress Note ---
Date of Service January 03, 2020 Assessment & Plan (1) Acute diverticulitis of intestine: Patient here with diverticulitis Afebrile Abdomen is soft, improved from yesterday Not yet passing flatus nor BM Since she is tolerating clears without issue, will advance to full liquid diet for now IVF at 125cc Await return of bowel function prior to advancing to low fiber diet Continue IV abx Will change morphine to IV dilaudid to see if she tolerates this better Pt seen and examine with dr johnson Admission and Anticipated Discharge Date Admission Date: January 01, 2020 Subjective Patient is upset she is not making much progress. Not passing flatus or having BM's yet. Still with abdominal pain, says morphine makes her nauseated. Physical Exam Physical Exam: awake/alert Respiratory: normal respiratory effort Gastrointestinal (Abdomen): Percussion/Palpation: abdomen soft; abdomen nontender Results & Data ([facility]) Vital Signs (Past 12 Hours) Vital Signs Temp Pulse Pulse Resp BP BP Pulse Ox 01/03/20 07:17 36.9 C 59 L 16 119/76 92 01/03/20 03:30 37.1 C 54 L 16 91/61 L 96 01/02/20 23:02 36.7 C 51 L 18 107/77 98 PG Care Time/CCT Total # of Minutes Spent Total Time Spent with Patient: Total time spent is greater than 50% in coordination of care (as documented) at patient's floor/unit and/or counseling patient: Coding Level of Care Code 35322 Subseq Hosp Care Lvl 1 Diagnoses Acute diverticulitis of intestine K57.92
[2020-01-03] MEDS: ONDANSETRON INJ 2 MG/ML 2 ML VIAL IV PRN ×2 (10:59→16:55)
[2020-01-03] MEDS: HYDROmorphone INJ 1 MG/ML SYRINGE IV PRN ×5 (10:59→23:38)
[2020-01-03] MEDS ORDERED: MAGNESIUM HYDROXIDE SUSP 30 ML UDC PO PRN (10:59)
--- NOTE | 2020-01-03 15:41 | Hospitalist Progress Note ---
Date of Service January 03, 2020 Assessment & Plan (1) Acute diverticulitis of intestine: (1) Acute diverticulitis of intestine: (2) Ileus: per admitting service notes: This is a 59-year-old female with significant PMH of CAD with history of 1 FITZ to the mid circumflex in 2018, HLD, MS, tobacco abuse, GERD who presents to ED secondary to left lower quadrant pain x2 days. In ED patient remained hemodynamically stable, on admission she was mildly tachycardic but this was improved during my evaluation. Lab work notable for leukocytosis at 12.6K, H&H 17.1 and 50.6, platelet 238, sodium 134, BUN 12, creatinine 1.17, LFTs WNL. CT scan abdomen pelvis notable moderate colonic diverticulosis with evidence of acute sigmoid diverticulitis. No intraperitoneal free air is identified and there is no organized fluid collection to suggest abscess. The upstream colon is mildly distended and fluid-filled. This could represent a mild reactive ileus or possibly mild colonic obstruction secondary to inflammation/edema of the sigmoid. Nonemergent follow-up colonoscopy is recommended to exclude the less likely possibility of obstructing mass lesion. In ED she received IVF, IV morphine and IV Zosyn. Pt does not meet sepsis criteria on admission per current CMS guidelines, pt with leukocytosis 12.6k, but afebrile, HR 80s, RR 19 admit to med tele continue IV zosyn bowel rest, NPO except sips, chips, meds IVF NSS @ 110cc/hr 1g APAP q8hr, prn morphine severe pain,antiemetics consult general surgery blood cultures ordered 01/03/20: afebrile, leukocytosis resolved blood cultures: negative Gen Surg recommendations noted, appreciate the recommendations continue IV Zosyn, IV fluids- decrease today advanced diet to full liquids today monitor closely Dr. Coreas holding off on laxatives today to prevent rupture of diverticulitis Hypotension - likely from Dehydration, Infection - BP now stable - reduced Metoprolol from 25 to 12.5mg gentle IV fluids - monitor Possible Vaginal vs. Rectal Bleeding - Plt stable - hold Lovenox monitor closely (3) Dehydration: clinically, mild elevation in H/H, Cr not RENA IV fluids (4) Coronary artery disease: no cardiac symptoms continue ASA, plavix, statin, metoprolol (5) HLD (hyperlipidemia): continue statin (6) Multiple sclerosis: stable monitor (7) Tobacco use disorder: 1 pack/week x 40 years counselling done (8) DVT prophylaxis: d/c Lovenox in light of possible vaginal vs. rectal bleeding SCDs, encouraged to ambulate frequently- every hour if possible patient verbalized understanding and agreement plan of care discussed with patient in detail and at length all questions were answered she is understanding, agreeable, comfortable with the plan of care Follow up: PCP Dr. Grove upon discharge Admission and Anticipated Discharge Date Admission Date: January 01, 2020 Subjective ff up for acute diverticulitis, ileus seen resting in bed, comfortable not in distress was having significant abdominal pain this morning, improved with Dilaudid IV on exam, pain is much better still no flatus or BM, but no nausea, tolerating full liquids well, no fever/chills denies chest pain, dyspnea, dizziness, palpitations (+) bright red blood noemy noted in her undergarment while in the toilet today no suprapubic pain, rectal pain no other symptoms Review of Systems Review of Systems: All systems reviewed & are unremarkable except as noted in HPI & below Physical Exam Physical Exam: General- oriented x 3, not in distress, speaks in sentences with no effort or accessory muscle use Eyes- anicteric Neck- no JVD Lungs- clear breath sounds bilaterally, no rales/wheezes Heart- normal rate, regular rhythm; no murmurs Abdomen- normal bowel sounds, nondistended, soft, mild LLQ tenderness Extremities- no pretibial edema, no calf tenderness Neuro- alert, oriented x 3; no gross focal neurologic deficits Skin- warm & dry Results & Data Results & Data ([facility]) Vital Signs (Past 12 Hours) Vital Signs Temp Pulse Pulse Resp BP Pulse Ox 01/03/20 11:41 53 L 01/03/20 11:14 36.4 C L 70 16 123/83 94 01/03/20 07:17 36.9 C 59 L 16 119/76 92
[2020-01-03 15:56] LABS: Basophils # (auto) 0.01 K/uL (0-0.2); Basophils % (auto) 0.1 %; Eosinophils # (auto) 0.09 K/uL (0-0.5); Eosinophils % (auto) 0.9 %; Hemoglobin 13.5 g/dL (12.0-16.0); Immature Granulocytes # (auto) 0.02 K/uL (0.00-0.02); Immature Granulocytes % (auto) 0.2 %; Lymphocytes # (auto) 1.21 K/uL (1.2-3.4); Lymphocytes % (auto) 12.6 %; Mean Corpuscular Hemoglobin 30.1 pg (25-34); Mean Corpuscular Hgb Conc 32.1 g/dL (32-36); Mean Corpuscular Volume 93.5 fL (80-100); Mean Platelet Volume 11.1 fL (7.4-10.4); Monocytes % (auto) 9.3 %; Neutrophils % (auto) 76.9 %; Platelet Count 205 K/uL (130-400); RDW Coefficient of Variation 14.6 % (11.5-14.5); RDW Standard Deviation 49.4 fL (36.4-46.3); Red Blood Count 4.49 M/uL (4.2-5.4); White Blood Count 9.63 K/uL (4.8-10.8)
[2020-01-03] MEDS: METOPROLOL SUCC 25MG EXT REL TAB PO SCH (20:20)
[2020-01-03] MEDS: PROMETHAZINE HCL 12.5 MG in SODIUM CHLORIDE 0.9% 50 ML IV PRN (20:30)
[2020-01-03] MEDS: ATORVASTATIN 40 MG TAB PO SCH (20:35)
[2020-01-03] MEDS: ASPIRIN 81 MG ECTAB PO SCH (20:35)
[2020-01-03] MEDS: PANTOprazole 40 MG TAB PO SCH (20:35)
[2020-01-03] MEDS: CLOPIDOGREL BISULFATE 75 MG TAB PO SCH (20:35)
[2020-01-04] MEDS: HYDROmorphone INJ 1 MG/ML SYRINGE IV PRN ×4 (04:04→22:22)
[2020-01-04 06:38] LABS: BUN Creatinine Ratio 3.7 (10-20); Calcium 8.4 mg/dl (8.5-10.1); Creatinine Clr Calc Pharmacy 83.7 ml/min; Est GFR (African American) 80.5; Est GFR (Non-African American) 69.5; Potassium 3.6 mmol/L (3.5-5.1)
--- NOTE | 2020-01-04 07:22 | Surgery Progress Note ---
Date of Service January 04, 2020 Assessment & Plan (1) Acute diverticulitis of intestine: Patient here with diverticulitis Afebrile Abdomen is soft, improved from yesterday Not yet passing flatus nor BM Since she is tolerating clears without issue, will advance to full liquid diet for now IVF at 125cc Await return of bowel function prior to advancing to low fiber diet Continue IV abx Will change morphine to IV dilaudid to see if she tolerates this better Pt seen and examine with dr johnson 01/04/20 Try to reassure that most likely will have some GI function with passing flatus within the next 24 hours [facility] surgeon covering over the weekend Admission and Anticipated Discharge Date Admission Date: January 01, 2020 Subjective Patient is frustrated that she has not had any flatus although she is not complaining any significant abdominal pain She is able to tolerate a full liquid diet Physical Exam Physical Exam: She is resting comfortably in bed without any major issues The abdomen is benign there is no tenderness no guarding Results & Data ([facility]) Vital Signs (Past 12 Hours) Vital Signs Temp Pulse Pulse Resp BP Pulse Ox 01/04/20 02:45 36.5 C 72 16 115/77 93 01/03/20 23:30 36.8 C 70 18 122/81 100 01/03/20 22:20 60 01/03/20 20:01 36.6 C 58 L 16 120/83 93 PG Care Time/CCT Total # of Minutes Spent Total Time Spent with Patient: Total time spent is greater than 50% in coordination of care (as documented) at patient's floor/unit and/or counseling patient: Coding Level of Care Code 17935 Subseq Hosp Care Lvl 3 Diagnoses Acute diverticulitis of intestine K57.92
[2020-01-04] MEDS: PIPERACILLIN/TAZOBACTAM 3.375 GM in DEXTROSE 5% 100 ML IV SCH ×2 (08:55→16:40)
[2020-01-04] MEDS: SODIUM CHLORIDE 0.9% 1000ML 1,000 ML IV SCH (11:23)
[2020-01-04] MEDS: PROMETHAZINE HCL 12.5 MG in SODIUM CHLORIDE 0.9% 50 ML IV PRN ×2 (13:50→22:20)
[2020-01-04] MEDS: LACTULOSE SYRUP 20 GM/30 ML UDC PO PRN ×2 (15:16→19:03)
--- NOTE | 2020-01-04 17:19 | Hospitalist Progress Note ---
Date of Service January 04, 2020 Assessment & Plan (1) Acute diverticulitis of intestine: (1) Acute diverticulitis of intestine: (2) Ileus: per admitting service notes: This is a 59-year-old female with significant PMH of CAD with history of 1 FITZ to the mid circumflex in 2018, HLD, MS, tobacco abuse, GERD who presents to ED secondary to left lower quadrant pain x2 days. In ED patient remained hemodynamically stable, on admission she was mildly tachycardic but this was improved during my evaluation. Lab work notable for leukocytosis at 12.6K, H&H 17.1 and 50.6, platelet 238, sodium 134, BUN 12, creatinine 1.17, LFTs WNL. CT scan abdomen pelvis notable moderate colonic diverticulosis with evidence of acute sigmoid diverticulitis. No intraperitoneal free air is identified and there is no organized fluid collection to suggest abscess. The upstream colon is mildly distended and fluid-filled. This could represent a mild reactive ileus or possibly mild colonic obstruction secondary to inflammation/edema of the sigmoid. Nonemergent follow-up colonoscopy is recommended to exclude the less likely possibility of obstructing mass lesion. In ED she received IVF, IV morphine and IV Zosyn. Pt does not meet sepsis criteria on admission per current CMS guidelines, pt with leukocytosis 12.6k, but afebrile, HR 80s, RR 19 admit to med tele continue IV zosyn bowel rest, NPO except sips, chips, meds IVF NSS @ 110cc/hr 1g APAP q8hr, prn morphine severe pain,antiemetics consult general surgery blood cultures ordered 01/04/20: afebrile, leukocytosis resolved blood cultures: negative Gen Surg recommendations noted, appreciate the recommendations continue IV Zosyn, d/c IV fluids continue full liquids today discussed with Dr. Coreas, may start laxatives today Hypotension - likely from Dehydration, Infection - BP now stable - reduced Metoprolol from 25 to 12.5mg gentle IV fluids - monitor Possible Vaginal vs. Rectal Bleeding - Plt stable - hold Lovenox monitor closely - resolved (3) Dehydration: clinically, mild elevation in H/H, Cr not RENA IV fluids (4) Coronary artery disease: no cardiac symptoms continue ASA, plavix, statin, metoprolol (5) HLD (hyperlipidemia): continue statin (6) Multiple sclerosis: stable monitor (7) Tobacco use disorder: 1 pack/week x 40 years counselling done (8) DVT prophylaxis: d/c Lovenox in light of possible vaginal vs. rectal bleeding SCDs, encouraged to ambulate frequently- every hour if possible patient verbalized understanding and agreement plan of care discussed with patient in detail and at length all questions were answered she is understanding, agreeable, comfortable with the plan of care Follow up: PCP Dr. Grove upon discharge Admission and Anticipated Discharge Date Admission Date: January 01, 2020 Subjective ff up for acute sigmoid diverticulitis, ileus seen resting in bed, sitting up, comfortable states she feels improved today less LLQ pain no nausea, tolerating full liquids no flatus or BM yet no other symptom Review of Systems Review of Systems: All systems reviewed & are unremarkable except as noted in HPI & below Physical Exam Physical Exam: General- oriented x 3, not in distress, speaks in sentences with no effort or accessory muscle use Eyes- anicteric Neck- no JVD Lungs- clear BS BL Heart- normal rate, regular rhythm; no murmurs Abdomen- normal bowel sounds, nondistended, soft, nontender Extremities- no pretibial edema, no calf tenderness Neuro- alert, oriented x 3; no gross focal neurologic deficits Skin- warm & dry Results & Data Results & Data ([facility]) Vital Signs (Past 12 Hours) Vital Signs Temp Pulse Pulse Resp BP Pulse Ox 01/04/20 15:55 36.8 C 80 18 134/78 96 01/04/20 15:29 67 01/04/20 11:57 36.5 C 72 16 127/79 96 01/04/20 08:31 59 L 01/04/20 07:49 36.7 C 62 16 142/87 H 96 Laboratory Results Laboratory Results - last 24 hr 01/04/20 05:51 Sodium 142 Potassium 3.6 Chloride 115 H Carbon Dioxide 23 Anion Gap 4.0 BUN 3 L Creatinine 0.90 Est Cr Clr Drug Dosing 83.7 Est GFR ( Amer) 80.5 Est GFR (Non-Af Amer) 69.5 BUN/Creatinine Ratio 3.7 L Glucose 93 Calcium 8.4 L
[2020-01-04] MEDS ORDERED: DOCUSATE SODIUM/SENNA 50/8.6MG TAB PO SCH (19:00)
[2020-01-04] MEDS: METOPROLOL SUCC 25MG EXT REL TAB PO SCH (19:00)
[2020-01-04] MEDS: ONDANSETRON INJ 2 MG/ML 2 ML VIAL IV PRN (19:06)
[2020-01-04] MEDS ORDERED: POLYETHYLENE (MIRALAX) 17 GM PACK PO PRN (19:15)
[2020-01-04] MEDS: ASPIRIN 81 MG ECTAB PO SCH (20:08)
[2020-01-04] MEDS: ATORVASTATIN 40 MG TAB PO SCH (20:08)
[2020-01-04] MEDS: PANTOprazole 40 MG TAB PO SCH (20:08)
[2020-01-04] MEDS: CLOPIDOGREL BISULFATE 75 MG TAB PO SCH (20:08)
[2020-01-04] MEDS ORDERED: PROMETHAZINE HCL 12.5 MG in SODIUM CHLORIDE 0.9% 50 ML IV PRN (22:10)
[2020-01-04] MEDS ORDERED: METOPROLOL TARTRATE 1 MG/ML VIAL IV STA ×2 (22:10→23:41)
[2020-01-04] MEDS ORDERED: SODIUM CHLORIDE 0.9% 500 ML IV ONE (22:12)
[2020-01-04] MEDS ORDERED: METOPROLOL TARTRATE 1 MG/ML VIAL IV ONE (22:13)
[2020-01-04] MEDS ORDERED: FAMOTIDINE 20MG IV PUSH 20 MG/5 ML SYR IV STA (22:16)
[2020-01-04] MEDS: POTASSIUM CHLORIDE / WTR 10 MEQ/100 ML PLCT IV SCH (22:44)
[2020-01-04] MEDS: MAGNESIUM SULFATE / D5W 1 GM/100 ML BAG IV SCH (22:48)
[2020-01-04 23:10] LABS: BUN Creatinine Ratio 2.7 (10-20); Calcium 8.2 mg/dl (8.5-10.1); Creatinine Clr Calc Pharmacy 88.2 ml/min; Est GFR (African American) 85.1; Est GFR (Non-African American) 73.4; Magnesium 1.9 mg/dl (1.8-2.4); Potassium 3.7 mmol/L (3.5-5.1)
[2020-01-04] MEDS ORDERED: POTASSIUM CHLORIDE 40 MEQ in SODIUM CHLORIDE 0.9% 1000ML 1,000 ML IV ONE (23:20)
[2020-01-04] MEDS ORDERED: DIGOXIN 250 MCG in SYRINGE 9 ML IV STA (23:36)
[2020-01-04] MEDS ORDERED: KETOROLAC TROMETHAMINE 15 MG/ML VIAL IV ONE (23:41)
[2020-01-04] MEDS ORDERED: METOCLOPRAMIDE HCL INJ 5 MG/ML 2 ML VIAL IV ONE (23:41)
--- NOTE | 2020-01-04 23:41 | Communication Note ---
Date of Service: January 04, 2020 Patient transferred to PCU for uncontrolled A. fib. CT abdomen pelvis requested for worsening abdominal discomfort. N.p.o. for now until CT results known.
[2020-01-04 23:46] LABS: Thyroid Stimulating Hormone 2.66 uIu/ml (0.300-4.500)
[2020-01-04] MEDS ORDERED: dilTIAZem HCl 5 MG/ML 5 ML VIAL IV STA (23:56)
[2020-01-05] MEDS ORDERED: IOVERSOL 100ml IV ONE (00:17)
[2020-01-05] MEDS ORDERED: ACETAMINOPHEN 325 MG TAB PO PRN (00:34)
[2020-01-05] MEDS: MAGNESIUM SULFATE / D5W 1 GM/100 ML BAG IV SCH (01:31)
[2020-01-05] MEDS: POTASSIUM CHLORIDE / WTR 10 MEQ/100 ML PLCT IV SCH ×3 (01:31→04:08)
[2020-01-05] MEDS: PIPERACILLIN/TAZOBACTAM 3.375 GM in DEXTROSE 5% 100 ML IV SCH ×3 (01:41→16:36)
[2020-01-05] MEDS ORDERED: PANTOprazole 40 MG TAB PO STA (02:43)
[2020-01-05] MEDS ORDERED: LACTULOSE SYRUP 20 GM/30 ML UDC PO STA (03:06)
[2020-01-05] MEDS ORDERED: bisacodyL 10 MG SUPP PR STA (04:00)
[2020-01-05] MEDS ORDERED: METOCLOPRAMIDE HCL INJ 5 MG/ML 2 ML VIAL IV ONE (04:01)
[2020-01-05] MEDS: PROMETHAZINE HCL 12.5 MG in SODIUM CHLORIDE 0.9% 50 ML IV PRN (04:12)
[2020-01-05] MEDS: NORMOSOL-R 1,000 ML IV SCH ×2 (04:54→20:40)
[2020-01-05] MEDS: METOPROLOL SUCC 25MG EXT REL TAB PO SCH ×2 (04:55→22:15)
[2020-01-05] MEDS ORDERED: METOPROLOL TARTRATE 1 MG/ML VIAL IV STA (05:43)
--- NOTE | 2020-01-05 07:47 | CT Scan Report ---
CT abd pelvis IV con only CLINICAL HISTORY: worsening abd pain VOMITING COMPARISON STUDY: 01/01/2020 TECHNIQUE: The patient was scanned in a dynamic helical fashion during intravenous administration of 93 cc of Optiray 320 A dose lowering technique was utilized adhering to the principles of ALARA. CT DOSE: 1138.80 mGy.cm FINDINGS: Lower chest: There are small bilateral pleural effusions right greater than left. There are basilar a irspace opacities likely representing compressive atelectasis. Liver: The contrast-enhanced liver is normal in size, contour, and attenuation. There is no intrahepa tic biliary ductal dilatation. The hepatic veins and portal veins are patent. Gallbladder: Mildly distended. No calculi identified Spleen: Normal in size and attenuation. Pancreas: Unremarkable. Adrenal glands: Unremarkable. Kidneys: There is symmetric renal cortical enhancement. The kidneys are normal in size without hydron ephrosis. Bowel: There is progressive colonic and small bowel dilatation down to the level of the sigmoid colon . The cecum measures 8.5 cm in diameter. There is a colonic transition zone at the level the sigmoid colon where there is evidence for multiple diverticula and mild infiltration of the peridiverticular fat. The findings are consistent with diverticulitis. Given the associated bowel obstruction, an unde rlying clonic mass cannot be excluded. There is evidence for pneumatosis intestinalis within the asce nding colon. There is no portal venous gas. Peritoneum: There is increasing ascites. No free air is visualized. Vasculature: The abdominal aorta is normal in course and caliber. Adenopathy: None. Pelvic viscera: The uterus appears surgically absent Skeletal structures: No destructive osseous lesions are seen. IMPRESSION: 1. Worsening bowel obstruction with a transition at the level of the sigmoid colon. There is evidence for sigmoid diverticulitis. Given the apparent bowel obstruction, an underlying mass cannot be exclu ded. GI/surgical consultation should be considered. 2. Mild edema surrounding the right colon with an equivocal pneumatosis. The cecum measures 8.5 cm in diameter. Again GI/surgical consultation should be considered. 3. Developing ascites 4. Bilateral pleural effusions right greater than left with associated basilar parenchymal opacities, likely atelectatic ACT 112: Negative or not required by law. Electronically signed by: Sujit Doherty M.D. 01/05/2020 7:46 AM
[2020-01-05] MEDS: HYDROmorphone INJ 1 MG/ML SYRINGE IV PRN (08:13)
[2020-01-05] MEDS: DOCUSATE SODIUM/SENNA 50/8.6MG TAB PO SCH ×3 (08:53→22:15)
[2020-01-05] MEDS ORDERED: METOPROLOL SUCC 25MG EXT REL TAB PO SCH (09:00)
[2020-01-05 11:06] LABS: Basophils # (auto) 0.01 K/uL (0-0.2); Basophils % (auto) 0.1 %; Eosinophils # (auto) 0.02 K/uL (0-0.5); Eosinophils % (auto) 0.2 %; Hematocrit (blood only) 45.6 % (37-47); Hemoglobin 15.5 g/dL (12.0-16.0); Immature Granulocytes # (auto) 0.01 K/uL (0.00-0.02); Immature Granulocytes % (auto) 0.1 %; Lymphocytes # (auto) 0.66 K/uL (1.2-3.4); Lymphocytes % (auto) 7.1 %; Mean Corpuscular Hemoglobin 31.2 pg (25-34); Mean Corpuscular Volume 91.8 fL (80-100); Mean Platelet Volume 10.8 fL (7.4-10.4); Monocytes # (auto) 0.72 K/uL (0.11-0.59); Monocytes % (auto) 7.8 %; Neutrophils # (auto) 7.87 K/uL (1.4-6.5); Neutrophils % (auto) 84.7 %; Platelet Count 247 K/uL (130-400); RDW Coefficient of Variation 14.3 % (11.5-14.5); RDW Standard Deviation 48.2 fL (36.4-46.3); Red Blood Count 4.97 M/uL (4.2-5.4); White Blood Count 9.29 K/uL (4.8-10.8)
[2020-01-05 11:37] LABS: Albumin Globulin Ratio 0.7 (0.9-2); Albumin Level 2.4 gm/dl (3.4-5.0); BUN Creatinine Ratio 2.4 (10-20); Bilirubin,Total 0.5 mg/dl (0.2-1); Calcium 8.3 mg/dl (8.5-10.1); Creatinine Clr Calc Pharmacy 80.6 ml/min; Est GFR (African American) 75.5; Est GFR (Non-African American) 65.1; Globulin 3.5 gm/dl (2.5-4.0); Magnesium 2.3 mg/dl (1.8-2.4); Potassium 4.4 mmol/L (3.5-5.1); Total Protein 5.9 gm/dl (6.4-8.2)
--- NOTE | 2020-01-05 11:48 | Surgery Progress Note ---
Date of Service January 05, 2020 Assessment & Plan (1) Acute diverticulitis of intestine: likely stricture either diverticulitis versus CA will place ngt for nausea to see if relieve, passing some denise GI consult to consider possible scope NPO likely will need surgical intervention Admission and Anticipated Discharge Date Admission Date: January 01, 2020 Subjective patient seen last night at 2 AM still with abdominal pain CT scan shows some progressive dilation no peritoneal signs on exam Review of Systems Constitutional: no fever and no chills Respiratory: no cough and no dyspnea Cardiovascular: no chest pain Gastrointestinal: + abdominal pain and + nausea; no vomiting some flatus Genitourinary: no dysuria Musculoskeletal: no back pain Integumentary: no rash Neurologic: no localized weakness Physical Exam Constitutional: well developed and well nourished; no acute distress Neck: trachea midline Respiratory: normal respiratory effort, lungs clear to auscultation Cardiovascular: RRR, no murmur, no edema a fib resolved Gastrointestinal (Abdomen): Inspection/Auscultation: abdomen normal to inspection, + abdomen distended and normal bowel sounds Percussion/Palpation: + abdomen tender (moderate) and abdomen soft; no guarding and abdomen not rigid Musculoskeletal: Head/Neck/Chest: normocephalic and head atraumatic Skin: no rashes, warm and dry Results & Data ([facility]) Vital Signs (Past 12 Hours) Vital Signs Temp Pulse Pulse Resp BP BP BP 01/05/20 07:25 36.9 C 82 18 135/103 H 01/05/20 06:18 84 134/103 H 01/05/20 05:50 88 141/99 H 01/05/20 04:25 36.5 C 181 H 20 130/100 01/05/20 02:30 75 01/05/20 00:34 36.7 C 75 86 16 115/87 01/04/20 23:53 172 H 144/78 H Pulse Ox 01/05/20 07:25 96 01/05/20 06:18 01/05/20 05:50 01/05/20 04:25 93 01/05/20 02:30 01/05/20 00:34 96 01/04/20 23:[address] abd pelvis IV con only CLINICAL HISTORY: worsening abd pain VOMITING COMPARISON STUDY: 01/01/2020 TECHNIQUE: The patient was scanned in a dynamic helical fashion during intravenous administration of 93 cc of Optiray 320 A dose lowering technique was utilized adhering to the principles of ALARA. CT DOSE: 1138.80 mGy.cm FINDINGS: Lower chest: There are small bilateral pleural effusions right greater than left. There are basilar airspace opacities likely representing compressive atelectasis. Liver: The contrast-enhanced liver is normal in size, contour, and attenuation. There is no intrahepatic biliary ductal dilatation. The hepatic veins and portal veins are patent. Gallbladder: Mildly distended. No calculi identified Spleen: Normal in size and attenuation. Pancreas: Unremarkable. Adrenal glands: Unremarkable. Kidneys: There is symmetric renal cortical enhancement. The kidneys are normal in size without hydronephrosis. Bowel: There is progressive colonic and small bowel dilatation down to the level of the sigmoid colon. The cecum measures 8.5 cm in diameter. There is a colonic transition zone at the level the sigmoid colon where there is evidence for multiple diverticula and mild infiltration of the peridiverticular fat. The findings are consistent with diverticulitis. Given the associated bowel obstruction, an underlying clonic mass cannot be excluded. There is evidence for pneumatosis intestinalis within the ascending colon. There is no portal venous gas. Peritoneum: There is increasing ascites. No free air is visualized. Vasculature: The abdominal aorta is normal in course and caliber. Adenopathy: None. Pelvic viscera: The uterus appears surgically absent Skeletal structures: No destructive osseous lesions are seen. IMPRESSION: 1. Worsening bowel obstruction with a transition at the level of the sigmoid colon. There is evidence for sigmoid diverticulitis. Given the apparent bowel obstruction, an underlying mass cannot be excluded. GI/surgical consultation should be considered. 2. Mild edema surrounding the right colon with an equivocal pneumatosis. The cecum measures 8.5 cm in diameter. Again GI/surgical consultation should be considered. 3. Developing ascites 4. Bilateral pleural effusions right greater than left with associated basilar parenchymal opacities, likely atelectatic
[2020-01-05] MEDS ORDERED: LIDOCAINE 2% JELLY 5 ML TUBE ONE (11:54)
--- NOTE | 2020-01-05 12:50 | Anesthesiology Consultation ---
Date of Service January 05, 2020 Assessment & Plan (1) Encounter for pre-operative examination: Chart Review Chart Review: Acceptable Risk for Surgery and Patient NOT seen in Pre Admission Testing cardiology visit 10/2019: Assessment and Plan (1) Coronary artery disease: Orders: Orders: Alanine Aminotransferase Today I25.10 Aspartate Aminotransferase Today I25.10 Lipid Profile Fasting Today I25.10 Plan - Elsy Oliveira PA-C: post inferior STEMI post PCI with single FITZ to subtotally occluded circumflex 03/2018 2. 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 Preserved LV function echo 03/2018 4. Dyslipidemia--LDL 188 off statin 5. Ongoing tobacco use 6. Palpitations--PACs on ambulatory monitoring Patient is doing well from a cardiac standpoint. Remains fairly active without anginal type symptoms. On exam appears well perfused without signs of heart failure or significant peripheral vascular disease. Continue dual antiplatelet therapy with ASA, clopidogrel. Continue high intensity statin, check fasting lipids and LFTs. Continue beta angelica. Smoking cessation reviewed. Consults Requested none cardiology to see patient for PAfib however per nursing report this is associated with bowel movements. Feel she needs urgent decompression so will rate control patient if she goes into A fib with RVR and hopefully decompression will lessen chance she has a reoccurrence of her A fib. Rapid COVID screening to be done prior to OR. History Surgery Operation Date: 01/05/20 13:30 Proposed Procedures p Colonoscopy with Decompression - Trisha Vigil MD Height/Weight Height: 5 ft 8 in Weight: 106.8 kg Allergies Allergy/AdvReac Type Severity Reaction Status Date / Time amoxicillin AdvReac Intermediate YEAST Verified 01/01/20 19:24 INFECTION Medications Home Medications Medication Instructions Recorded Confirmed Last Taken omeprazole 20 mg PO HS 04/10/18 01/01/20 12/31/19 metoprolol succinate 25 mg 25 mg PO DAILY #90 tab 05/09/19 01/01/20 12/31/19 tablet,extended release 24 hr aspirin 81 mg tablet,delayed 81 mg PO DAILY #90 tab 06/01/19 01/01/20 12/31/19 release clopidogrel 75 mg tablet 75 mg PO DAILY #90 tab 11/26/19 01/01/20 12/31/19 atorvastatin 80 mg PO DAILY 01/01/20 01/01/2020 Active Medications Generic Name Dose Route Start Last Admin Trade Name Freq PRN Reason Stop Dose Admin Aspirin 81 mg 01/01/20 21:30 01/04/20 20:08 Ecotrin Ectab PO 01/31/20 21:29 81 mg HS LAMONT Administration Atorvastatin Calcium 80 mg 01/01/20 21:30 01/04/20 20:08 Lipitor PO 01/31/20 21:29 80 mg HS LAMONT Administration Hydromorphone HCl 1 mg 01/03/20 10:20 01/05/20 08:13 Hydromorphone Inj 1 Mg/Ml Syringe IV 01/17/20 10:19 1 mg Q3H PRN Administration Pain Piperacillin Sod/Tazobactam 115 mls @ 28.75 mls/hr 01/02/20 00:00 01/05/20 09:12 Sod 3.375 gm/ Dextrose IV 01/12/20 00:00 28.8 mls/hr Q8H LAMONT Administration Protocol Promethazine HCl 12.5 mg/ 50.5 mls @ 202 mls/hr 01/01/20 21:04 01/05/20 04:20 Sodium Chloride IV 01/31/20 21:03 0 mls/hr Q6H PRN Infusion Nausea And Vomiting Parenteral Electrolytes 1,000 mls @ 80 mls/hr 01/05/20 03:45 01/05/20 04:54 Normosol-R IV 02/04/20 03:44 80 mls/hr .[id number] LAMONT Administration Lactulose 20 gm 01/03/20 10:59 01/04/20 19:03 Lactulose Syrup 20 Gm/30 Ml Udc PO 02/02/20 13:59 20 gm TID PRN Administration Constipation Magnesium Hydroxide 30 ml 01/03/20 10:59 01/04/20 11:23 Magnesium Hydroxide Susp 30 Ml Udc PO 02/02/20 10:58 30 ml Q6H PRN Administration Constipation Metoprolol Succinate 12.5 mg 01/05/20 03:45 01/05/20 04:55 Metoprolol Succ 25mg Ext Rel Tab PO 02/04/20 03:44 12.5 mg BID LAMONT Administration Polyethylene Glycol 17 gm 01/04/20 19:15 01/04/20 20:20 Polyethylene (Miralax) 17 Gm Pack PO 02/03/20 19:14 17 gm DAILY PRN Administration Constipation Senna/Docusate Sodium 1 tab 01/05/20 03:15 01/05/20 10:14 Docusate Sodium/Senna 50/8.6mg Tab PO 02/04/20 03:14 Not Given BID LAMONT Past Medical History Medical History Coronary artery disease HLD (hyperlipidemia) Multiple sclerosis ST elevation myocardial infarction (STEMI) of inferior wall Tibial plateau fracture, left (05/01/14) Tobacco use disorder Exercise / Class Metabolic Activity II 4-5 Yardwork/Stairs/Walk up hill Past Family History Family History Sister Bipolar disorder Mother Stroke Father Coronary heart disease Myocardial infarction Other Family history non-contributory Past Surgical History Surgical History History of cardiac cath 1 FITZ to mid circumflex S/P hammer toe correction "10/2017" S/P hysterectomy S/P ORIF (open reduction internal fixation) fracture "Of left tibial plateau fracture in 2013" Status post angioplasty with stent Past Anesthesia History No Hx of Anesthesia Complications and No Family Hx of Anesthesia Complications History of PONV No Hx of PONV and No Hx of Motion Sickness Social History Smoking Status: Current every day smoker tobacco type: cigarettes Smoking cigarettes per day: 1-3 Do You Dip or Chew Tobacco: No Hx Alcohol Use: No Alcohol type: beer, wine and hard liquor alcohol intake frequency: holidays/special occasions only Hx Substance Use: No Physical Exam Vital Signs Last Vital Signs Temp 36.8 C 01/05/20 12:00 Pulse 76 01/05/20 12:00 Resp 18 01/05/20 12:00 BP 127/91 01/05/20 12:00 Pulse Ox 98 01/05/20 12:00 Testing Laboratory Results 01/05/20 10:47 01/05/20 10:47 Urine Color Yellow 01/01/20 23:35 Urine Appearance Clear (Clear) 01/01/20 23:35 Urine pH 5.0 (4.5-7.5) 01/01/20 23:35 Ur Specific [place] 1.045 (1.000-1.030) H 01/01/20 23:35 Urine Protein Negative (Negative) 01/01/20 23:35 Urine Glucose (UA) Negative (Negative) 01/01/20 23:35 Urine Ketones 1+ (Negative) H 01/01/20 23:35 Urine Nitrite Negative (Negative) 01/01/20 23:35 Ur Leukocyte Esterase Negative (Negative) 01/01/20 23:35 Urine WBC (Auto) 1-5 /hpf (0-5) 01/01/20 23:35 Urine RBC (Auto) 0-4 /hpf (0-4) 01/01/20 23:35 U Hyaline Cast (Auto) 0 /lpf (0-5) 01/01/20 23:35 U Epithel Cells (Auto) 5-10 /lpf (0-5) H 01/01/20 23:35 Urine Bacteria (Auto) Negative (Negative) 01/01/20 23:35 01/01/20 20:05 Aerobic Blood Culture - Preliminary Blood No growth in Aerobic bottle after 48 hours. Anaerobic Blood Culture - Preliminary No growth in Anaerobic bottle after 48 hours. 01/01/20 20:05 Aerobic Blood Culture - Preliminary Blood No growth in Aerobic bottle after 48 hours. Anaerobic Blood Culture - Preliminary No growth in Anaerobic bottle after 48 hours.
[2020-01-05] MEDS ORDERED: LIDOCAINE HCL 2% 2 ML VIAL/AMP(20MG/ML) INFIL ONE (13:05)
[2020-01-05] MEDS ORDERED: PROPOFOL IV EMULSION 10 MG/ML 20 ML VIAL IV ONE (13:05)
[2020-01-05] MEDS ORDERED: fentaNYL citrate 100 MCG/2 ML VIAL ONE (13:06)
[2020-01-05] MEDS ORDERED: MIDAZOLAM HCL 1 MG/ML 2ML VIAL ONE (13:06)
[2020-01-05] MEDS ORDERED: MINERAL OIL 30 ML UDC ONE (13:19)
--- NOTE | 2020-01-05 13:22 | Gastrointestinal Consultation ---
Date of Consultation January 05, 2020 Assessment & Plan (1) Colon obstruction: Likely acute inflammatory sigmoid stricture, need to r/o malignancy. Will perform Flex sig today, if this is a colon malignancy then will place a stent, if this is a diverticular stricture then will place a decompression tube and patient will need surgical resection soon. (2) Acute diverticulitis of intestine: (3) Abdominal pain: History of Present Illness Attending Physician: Estuardo Nichols MD History of Present Illness 59 years old female patient admitted with abdominal pain and imaging showed acute sigmoid diverticulitis with upstream colonic dilation, she has not had a BM since admission, now her pain worsened and repeat CT scan showed worsening colonic dilation with transition point in the sigmoid colon. No nausea or vomiting. She had multiple similiar attack of pain in the past and was attributed to diverticulitis. Never had a colonoscopy. Allergies Allergy/AdvReac Type Severity Reaction Status Date / Time amoxicillin AdvReac Intermediate YEAST Verified 01/01/20 19:24 INFECTION Home Medications Home Medications Medication Instructions Recorded Confirmed Type omeprazole 20 mg PO HS 04/10/18 01/01/20 History metoprolol succinate 25 mg 25 mg PO DAILY #90 tab 05/09/19 01/01/20 Rx tablet,extended release 24 hr aspirin 81 mg tablet,delayed 81 mg PO DAILY #90 tab 06/01/19 01/01/20 Rx release clopidogrel 75 mg tablet 75 mg PO DAILY #90 tab 11/26/19 01/01/20 Rx atorvastatin 80 mg PO DAILY 01/01/20 01/01/20 History Patient History Medical History Coronary artery disease HLD (hyperlipidemia) Multiple sclerosis ST elevation myocardial infarction (STEMI) of inferior wall Tibial plateau fracture, left (05/01/14) Tobacco use disorder Surgical History History of cardiac cath 1 FITZ to mid circumflex S/P hammer toe correction "10/2017" S/P hysterectomy S/P ORIF (open reduction internal fixation) fracture "Of left tibial plateau fracture in 2013" Status post angioplasty with stent Family History Sister Bipolar disorder Mother Stroke Father Coronary heart disease Myocardial infarction Other Family history non-contributory Social History Smoking Status: Current every day smoker Tobacco Type: Cigarettes Years Smoked: 40; Cigarettes Per Day: 1-3; Second Hand Exposure: No; Do You Dip or Chew Tobacco: No; Hx Alcohol Use: No Hx Substance Use: No Preferred Language: Mexican Communication Ability: Effective Geophysical Drafter Required: No Beliefs That Will Affect Care: None Current Living Situation: Spouse current occupational status: employed current occupation: [employer] Feels Safe at Home: Yes Review of Systems Constitutional: no fever, no chills, no fatigue and no weight loss Eyes: no eye pain and no worsening vision Ear, Nose, Mouth, Throat: no tinnitus, no dizziness, no nasal discharge and no epistaxis Respiratory: no cough, no dyspnea, no dyspnea on exertion and no wheezing Cardiovascular: no chest pain, no orthopnea, no palpitations and no edema Gastrointestinal: as per Subjective / HPI Genitourinary: no dysuria, no urinary frequency, no urinary incontinence and no hematuria Musculoskeletal: no stiffness and no myalgia Neurologic: no localized weakness, no paralysis, no tremor(s) and no headache(s) Endocrine: no polydipsia and no polyuria Hematologic / Lymphatic: no easy bleeding and no night sweats Physical Exam Constitutional: + well hydrated, cooperative and comfortable Eyes: PERRL, conjunctivae normal, anicteric sclerae ENMT: external ear and nose normal, oropharynx normal Neck: normal visual inspection and trachea midline Respiratory: normal respiratory effort, lungs clear to auscultation Auscultation: no wheezes Cardiovascular: RRR, no murmur, no edema Gastrointestinal (Abdomen): normal bowel sounds, soft, nontender, no hepatosplenomegaly Musculoskeletal: no cyanosis or clubbing, extremities motor strength 5/5 Skin: no rashes, warm and dry Neurologic: awake; no focal motor deficits Motor/Sensory: no tremor Results & Data ([facility]) Vital Signs (Past 12 Hours) Vital Signs Temp Pulse Pulse Resp BP BP BP 01/05/20 12:00 36.8 C 76 18 127/91 01/05/20 07:25 36.9 C 82 18 135/103 H 01/05/20 06:18 84 134/103 H 01/05/20 05:50 88 141/99 H 01/05/20 04:25 36.5 C 181 H 20 130/100 01/05/20 02:30 75 Pulse Ox 01/05/20 12:00 98 01/05/20 07:25 96 01/05/20 06:18 01/05/20 05:50 01/05/20 04:25 93 01/05/20 02:30 Laboratory Results Laboratory Results - last 24 hr 01/04/20 01/05/20 01/05/20 22:42 02:32 10:47 WBC 9.29 RBC 4.97 Hgb 15.5 Hct 45.6 MCV 91.8 MCH 31.2 MCHC 34.0 RDW Std Deviation 48.2 H RDW Coeff of Rick 14.3 Plt Count 247 MPV 10.8 H Immature Gran % (Auto) 0.1 Neut % (Auto) 84.7 Lymph % (Auto) 7.1 [place] % (Auto) 7.8 Eos % (Auto) 0.2 Baso % (Auto) 0.1 Neut # (Auto) 7.87 H Lymph # (Auto) 0.66 L [place] # (Auto) 0.72 H Eos # (Auto) 0.02 Baso # (Auto) 0.01 Immature Gran # (Auto) 0.01 Sodium 141 Potassium 3.7 Chloride 113 H Carbon Dioxide 24 Anion Gap 4.0 BUN 2 L Creatinine 0.86 Est Cr Clr Drug Dosing 88.2 Est GFR ( Amer) 85.1 Est GFR (Non-Af Amer) 73.4 BUN/Creatinine Ratio 2.7 L Glucose 113 H Lactate 0.7 Calcium 8.2 L Magnesium 1.9 Total Bilirubin AST ALT Alkaline Phosphatase Total Protein Albumin Globulin Albumin/Globulin Ratio TSH 2.660 COVID-19 Eval Order SARS-CoV-2, RNA, NAAT 01/05/20 01/05/20 01/05/20 10:47 13:00 13:00 WBC RBC Hgb Hct MCV MCH MCHC RDW Std Deviation RDW Coeff of Rick Plt Count MPV Immature Gran % (Auto) Neut % (Auto) Lymph % (Auto) [place] % (Auto) Eos % (Auto) Baso % (Auto) Neut # (Auto) Lymph # (Auto) [place] # (Auto) Eos # (Auto) Baso # (Auto) Immature Gran # (Auto) Sodium 139 Potassium 4.4 D Chloride 110 H Carbon Dioxide 24 Anion Gap 5.0 BUN 2 L Creatinine 0.95 Est Cr Clr Drug Dosing 80.6 Est GFR ( Amer) 75.5 Est GFR (Non-Af Amer) 65.1 BUN/Creatinine Ratio 2.4 L Glucose 125 H Lactate Calcium 8.3 L Magnesium 2.3 Total Bilirubin 0.5 AST 22 ALT 33 Alkaline Phosphatase 83 Total Protein 5.9 L Albumin 2.4 L Globulin 3.5 Albumin/Globulin Ratio 0.7 L TSH COVID-19 Eval Order Covid19 IDNow atMMTC SARS-CoV-2, RNA, NAAT Pending (1) Abdominal pain Abdominal location: left lower quadrant Qualified Code(s): R10.32 - Left lower quadrant pain
[2020-01-05] MEDS ORDERED: ONDANSETRON INJ 2 MG/ML 2 ML VIAL IV PRN (13:30)
[2020-01-05] MEDS ORDERED: fentaNYL citrate 100 MCG/2 ML VIAL IV PRN (13:30)
[2020-01-05] MEDS ORDERED: ePHEDrine sulfate 50 MG/ML AMP IV PRN (13:30)
[2020-01-05] MEDS ORDERED: ATROPINE SULFATE 0.1 MG/ML 10ML SYR IV PRN (13:30)
--- NOTE | 2020-01-05 14:28 | Operative Report ---
Post Operative Report Pre & Post Diagnosis Operation Date: 01/05/20 13:30 Pre-Op Diagnosis: ACUTE SIGMOID DIVERTICULITIS Post-Op Diagnosis: ACUTE SIGMOID DIVERTICULITIS I identified the patient and participated in the time-out.: Yes Procedure Operation Date: 01/05/20 13:30 Actual Procedures p Colonoscopy with Decompression(Not Applicable) - Trisha Vigil MD Surgeon Trisha Vigil MD Road Worker None Estimated Blood Loss 0 Findings See Below (Diverticuluar stricture at 25 cm, no colon mass/malignancy. Decompression tube placed.) Specimens Stricture Bx Description of Procedure Flex sig I attest to the content of the Intraoperative Record and any orders documented therein. Any exceptions are noted below.
--- NOTE | 2020-01-05 15:04 | Anesthesiology Progress Note ---
Date of Service January 05, 2020 Anesthesia Post Procedure Vital Signs Vital Signs: Temp Pulse Pulse Resp BP BP BP 01/05/20 12:00 36.8 C 76 18 127/91 01/05/20 07:25 36.9 C 82 18 135/103 H 01/05/20 06:18 84 134/103 H 01/05/20 05:50 88 141/99 H 01/05/20 04:25 36.5 C 181 H 20 130/100 01/05/20 02:30 75 01/05/20 00:34 36.7 C 75 86 16 115/87 01/04/20 23:53 172 H 144/78 H 01/04/20 22:18 157 H 139/91 01/04/20 22:16 36.8 C 157 H 18 139/91 01/04/20 20:47 36.6 C 68 20 125/86 01/04/20 15:55 36.8 C 80 18 134/78 01/04/20 15:29 67 Pulse Ox 01/05/20 12:00 98 01/05/20 07:25 96 01/05/20 06:18 01/05/20 05:50 01/05/20 04:25 93 01/05/20 02:30 01/05/20 00:34 96 01/04/20 23:53 01/04/20 22:18 01/04/20 22:16 94 01/04/20 20:47 96 01/04/20 15:55 96 01/04/20 15:29 Pain Intensity Abdomen: Pain Intensity: 6 Transfer of Care Handoff Completed per policy Notes Mental Status: alert / awake / arousable and participated in evaluation Patient Amnestic to Procedure: Yes Nausea / Vomiting: adequately controlled Pain: adequately controlled Airway Patency, RR, SpO2: stable & adequate BP & HR: stable & adequate Hydration State: stable & adequate Anesthetic Complications: no major complications apparent and Pt Satisfied with anesthetic care
--- NOTE | 2020-01-05 15:23 | Fluoroscopy Report ---
[place] [facility] CLINICAL HISTORY: Rectal tube placementbowel obstruction COMPARISON STUDY: CT scan dated 01/05/2020 FLUOROSCOPY TIME: 3 minutes 53 seconds. NUMBER OF FLUOROSCOPIC IMAGES: 4 FINDINGS: 4 intraprocedural fluoroscopic spot images demonstrate placement of a rectal tube. The tip terminates within the mid descending colon. IMPRESSION: Placement of a rectal tube. The tip extends to the level of the mid descending colon ACT 112: Negative or not required by law. Electronically signed by: Sujit Doherty M.D. 01/05/2020 3:21 PM
--- NOTE | 2020-01-05 16:32 | GI REPORT ---
Patient Name: Lara Hernandez Procedure Date: 01/05/2020 1:40 PM Date of : 1960 Admit Type: Inpatient Age: 59 Gender: Female Attending MD: Trisah Vigil MD Procedure: Flexible Sigmoidoscopy Providers: Trisha Vigil MD Referring MD: Estuardo Nichols Indications: Abnormal CT of the GI tract, For therapy of colonic obstruction Medicines: General Anesthesia Complications: No immediate complications. Estimated Blood Loss: Estimated blood loss: none. Procedure: Pre-Anesthesia Assessment: - Prior to the procedure, a History and Physical was performed, and patient medications, allergies and sensitivities were reviewed. The patient's tolerance of previous anesthesia was reviewed. - The risks and benefits of the procedure and the sedation options and risks were discussed with the patient. All questions were answered and informed consent was obtained. - Patient identification and proposed procedure were verified prior to the procedure by the physician and the nurse. The procedure was verified in the procedure room. - Pre-procedure physical examination revealed no contraindications to sedation. After obtaining informed consent, the endoscope was passed under direct vision. Throughout the procedure, the patient's blood pressure, pulse, and oxygen saturations were monitored continuously. The Endoscope was introduced through the anus and advanced to the left transverse colon. The flexible sigmoidoscopy was accomplished without difficulty. The patient tolerated the procedure well. The quality of the bowel preparation was poor. Findings: The perianal and digital rectal examinations were normal. A benign-appearing, intrinsic mild stenosis related to luminal edema and acute diverticulitis was found from 20 to 25 cm proximal to the anus and was traversed. Biopsies were taken with a cold forceps for histology. Verification of patient identification for the specimen was done by the physician and nurse using the patient's name and date. A colonic decompression tube was placed with tip in the descending colon under fluoroscopic guidance, I personally interpretted the fluroscopic images. Scattered small and large-mouthed diverticula were found in the sigmoid colon and descending colon. Impression: - Diverticular sigmoid stricture. Biopsied. Decompression tube placed. Recommendation: - Return patient to hospital [facility] for ongoing care. - Flush the rectal tube with water every 8 hours to avoid fecal clogging. - Obtain KUB tomorrow. - Start Miralax TID. - Once clinically improved, can remove the tube. - Add Metronidazole for double anaerobic coverage. - Surgery follow up for segmental sigmoid resection. - Needs full colonoscopy as OP. Trisha Vigil MD 01/05/2020 4:32:20 PM This report has been signed electronically. Note Initiated On: 01/05/2020 1:40 PM Number of Addenda: 0 I attest to the content of the Intraoperative Record and orders documented therein, exceptions below {[id number]}
[2020-01-05] MEDS: metroNIDAZOLE 500 MG/100 ML BAG IV SCH (17:06)
--- NOTE | 2020-01-05 17:42 | Cardiology Consultation ---
Date of Consultation January 05, 2020 Assessment & Plan (1) Paroxysmal atrial fibrillation: (2) Coronary artery disease: (3) S/P coronary artery stent placement: (4) Tobacco use disorder: (5) HLD (hyperlipidemia): ASSESSMENT/PLAN: 1.Paroxysmal atrial fibrillation: We discussed the diagnosis. She was completely asymptomatic. Palpitations in the past correlated with PACs. Her atrial fibrillation is likely occurring due to her severe abdominal pain related to her bowel obstruction and diverticulitis. Continue telemetry. We discussed treatment options. She would not like to undergo any further treatment at this time which is not unreasonable. It was recommended that if she has significant recurrence while acutely ill, can administer intravenous amiodarone to help maintain sinus rhythm. No role for anticoagulation therapy at this time but if she is found to have recurrence in the future when recovered, would consider. 2. CAD s/p Cx PCI: She has been on aspirin while here. She did not receive aspirin today due to her worsening abdominal issues. Please resume aspirin as soon as possible given prior stent so as not to precipitate stent thrombosis. Continue beta-angelica if able to take pills. High-intensity statin therapy. 3. Tobacco abuse: Stop smoking. 4. Dyslipidemia : On high-intensity statin therapy when able to take p.o.. 5. Bowel obstruction: As per GI. 6. Disposition: Please call with any other questions or concerns. Thank you for allowing me to participate in the care of your patient. Please call for any other questions or concerns. Sincerely, Cristopher Tse M.D. History of Present Illness Reason for Consultation: Atrial fibrillation Requesting Physician: Estuardo Nichols MD Attending Physician: Estuardo Nichols MD History of Present Illness Mrs. Hernandez is a pleasant 59-year-old female with history significant for CAD (STEMI s/p Cx PCI Mar 2018), dyslipidemia, multiple sclerosis, and tobacco abuse. Her primary real estate rep is Dr. Raphael. She was admitted on 01/01/2020 with abdominal pain and eventually found to have acute sigmoid diverticulitis with colonic dilation and bowel obstruction. She has not had a bowel movement for 8-9 days. She has been having nausea, vomiting, and continued lower abdominal pain. Yesterday, there was reported a brief episode of atrial fibrillation lasting approximately 1 minute but overnight at approximately 10:06 p.m., she developed atrial fibrillation with rapid ventricular response that lasted approximately 2 hours before resolving. This atrial fibrillation episode occurred when her abdominal pain intensified and she was quite uncomfortable. Her worsening pain prompted CT abdomen /pelvis overnight, which demonstrated worsening bowel obstruction with sigmoid diverticulitis. She underwent colonoscopy today with decompression. She was fo und to have a diverticular stricture but no mass. When seen today, she was quite uncomfortable in regards to her abdominal discomfort. She did not want to have much conversation due to her discomfort. Her and son were present at the bedside. She reported having palpitations as an outpatient months ago and underwent Holter monitor which demonstrated PACs, correlating to her symptoms but no arrhythmia. She does not recall being diagnosed with atrial fibrillation in the past. She denies melena, hematochezia, or hematuria. Review of systems: As above. Review of systems otherwise negative/unremarkable. Family history: Father at the age of 73 from [place]. Social history: She smokes cigarettes, approximately 1 pack per week. Occasional alcohol. No drugs. She lives at home with her . They have a son and a daughter. Her and son are present at the bedside. Allergies Allergy/AdvReac Type Severity Reaction Status Date / Time amoxicillin AdvReac Intermediate YEAST Verified 01/01/20 19:24 INFECTION Home Medications Home Medications Medication Instructions Recorded Confirmed Type omeprazole 20 mg PO HS 04/10/18 01/01/20 History metoprolol succinate 25 mg 25 mg PO DAILY #90 tab 05/09/19 01/01/20 Rx tablet,extended release 24 hr aspirin 81 mg tablet,delayed 81 mg PO DAILY #90 tab 06/01/19 01/01/20 Rx release clopidogrel 75 mg tablet 75 mg PO DAILY #90 tab 11/26/19 01/01/20 Rx atorvastatin 80 mg PO DAILY 01/01/20 01/01/20 History Patient History Medical History Coronary artery disease HLD (hyperlipidemia) Multiple sclerosis ST elevation myocardial infarction (STEMI) of inferior wall Tibial plateau fracture, left (05/01/14) Tobacco use disorder Surgical History History of cardiac cath 1 FITZ to mid circumflex S/P hammer toe correction "10/2017" S/P hysterectomy S/P ORIF (open reduction internal fixation) fracture "Of left tibial plateau fracture in 2013" Status post angioplasty with stent Family History Sister Bipolar disorder Mother Stroke Father Coronary heart disease Myocardial infarction Other Family history non-contributory Social History Smoking Status: Current every day smoker Tobacco Type: Cigarettes Years Smoked: 40; Cigarettes Per Day: 1-3; Second Hand Exposure: No; Do You Dip or Chew Tobacco: No; Hx Alcohol Use: No Hx Substance Use: No Preferred Language: Tajik Communication Ability: Effective Chart Snatcher Required: No Beliefs That Will Affect Care: None Current Living Situation: Spouse current occupational status: employed current occupation: [employer] district Feels Safe at Home: Yes Physical Exam Physical Exam: Gen.: No acute distress but appears uncomfortable. Alert and oriented. HEENT: Anicteric sclera. Neck: No JVD. No bruits. Normal carotid upstrokes bilaterally. Cardiac: PMI was nondisplaced. No ventricular heave. Regular rate and rhythm. Normal S1-S2. No murmurs, rubs, or gallops. Pulmonary: Clear to auscultation bilaterally without wheezes, rales, or rhonchi. Abdomen: Abdomen was quiet. She was complaining of abdominal pain which is known and did not wish to be further examined in this area. Extremities: 2+ radial pulses bilaterally. 2+ posterior tibialis pulses b ilaterally. No edema or cyanosis. No palpable cords. Psychiatric: Affect appears appropriate. Results & Data ([facility]) Vital Signs (Past 12 Hours) Vital Signs Temp Pulse Pulse Pulse Resp BP BP 01/05/20 15:15 36.8 C 88 20 01/05/20 15:05 78 16 01/05/20 14:55 80 17 01/05/20 14:45 107 H 23 01/05/20 14:35 36.9 C 108 H 20 01/05/20 12:00 36.8 C 76 18 127/91 01/05/20 07:25 36.9 C 82 18 135/103 H 01/05/20 06:18 84 01/05/20 05:50 88 141/99 H BP Pulse Ox 01/05/20 15:15 134/98 97 01/05/20 15:05 156/108 H 97 01/05/20 14:55 158/109 H 97 01/05/20 14:45 160/109 H 97 01/05/20 14:35 165/120 H 96 01/05/20 12:00 98 01/05/20 07:25 96 01/05/20 06:18 134/103 H 01/05/20 05:50 Laboratory Results Laboratory Results - last 24 hr 01/04/20 01/05/20 01/05/20 22:42 02:32 10:47 WBC 9.29 RBC 4.97 Hgb 15.5 Hct 45.6 MCV 91.8 MCH 31.2 MCHC 34.0 RDW Std Deviation 48.2 H RDW Coeff of Rick 14.3 Plt Count 247 MPV 10.8 H Immature Gran % (Auto) 0.1 Neut % (Auto) 84.7 Lymph % (Auto) 7.1 [place] % (Auto) 7.8 Eos % (Auto) 0.2 Baso % (Auto) 0.1 Neut # (Auto) 7.87 H Lymph # (Auto) 0.66 L [place] # (Auto) 0.72 H Eos # (Auto) 0.02 Baso # (Auto) 0.01 Immature Gran # (Auto) 0.01 Sodium 141 Potassium 3.7 Chloride 113 H Carbon Dioxide 24 Anion Gap 4.0 BUN 2 L Creatinine 0.86 Est Cr Clr Drug Dosing 88.2 Est GFR ( Amer) 85.1 Est GFR (Non-Af Amer) 73.4 BUN/Creatinine Ratio 2.7 L Glucose 113 H Lactate 0.7 Calcium 8.2 L Magnesium 1.9 Total Bilirubin AST ALT Alkaline Phosphatase Total Protein Albumin Globulin Albumin/Globulin Ratio TSH 2.660 COVID-19 Eval Order SARS-CoV-2, RNA, NAAT 01/05/20 01/05/20 01/05/20 10:47 13:00 13:00 WBC RBC Hgb Hct MCV MCH MCHC RDW Std Deviation RDW Coeff of Rick Plt Count MPV Immature Gran % (Auto) Neut % (Auto) Lymph % (Auto) [place] % (Auto) Eos % (Auto) Baso % (Auto) Neut # (Auto) Lymph # (Auto) [place] # (Auto) Eos # (Auto) Baso # (Auto) Immature Gran # (Auto) Sodium 139 Potassium 4.4 D Chloride 110 H Carbon Dioxide 24 Anion Gap 5.0 BUN 2 L Creatinine 0.95 Est Cr Clr Drug Dosing 80.6 Est GFR ( Amer) 75.5 Est GFR (Non-Af Amer) 65.1 BUN/Creatinine Ratio 2.4 L Glucose 125 H Lactate Calcium 8.3 L Magnesium 2.3 Total Bilirubin 0.5 AST 22 ALT 33 Alkaline Phosphatase 83 Total Protein 5.9 L Albumin 2.4 L Globulin 3.5 Albumin/Globulin Ratio 0.7 L TSH COVID-19 Eval [facility] SARS-CoV-2, RNA, NAAT NEGATIVE Diagnostic Findings Telemetry personally reviewed: Predominantly sinus rhythm. Approximately 2 hours worth of paroxysmal atrial fibrillation 01/04/[address] abdomen/pelvis report reviewed as noted above in HPI. Cardiac catheterization 04/10/2018 report reviewed: Mid LAD 30%. Distal LAD 50-60%. Small diagonal 70%. Small to moderate caliber D2 with 70-80%. Large circumflex acute subtotal occlusion mid circumflex which underwent PCI with 3 x 18 mm deb FITZ. Large dominant RCA. Ostial RCA 20-30%. EF 50% with inferior hypokinesis. Echo 04/11/2018: EF 55-60%. Mild inferolateral hypokinesis. No significant valvular abnormalities. There were no ECGs on the chart to review. ECG ordered. Medications Administered Current Inpatient Medications Acetaminophen (Acetaminophen 325 Mg Tab) 650 mg PO Q4H PRN PRN Reason: Pain or Fever Stop: 02/04/20 00:33 Aspirin (Ecotrin Ectab) 81 mg PO HS [facility] Stop: 01/31/20 21:29 Last Admin: 01/04/20 20:08 Dose: 81 mg Documented by: Atorvastatin Calcium (Lipitor) 80 mg PO HS [facility] Stop: 01/31/20 21:29 Last Admin: 01/04/20 20:08 Dose: 80 mg Documented by: Hydromorphone HCl (Hydromorphone Inj 1 Mg/Ml Syringe) 1 mg IV Q3H PRN PRN Reason: Pain Stop: 01/17/20 10:19 Last Admin: 01/05/20 08:13 Dose: 1 mg Documented by: Piperacillin Sod/Tazobactam (Sod 3.375 gm/ Dextrose) 115 mls @ 28.75 mls/hr IV Q8H [facility]; Protocol Stop: 01/12/20 00:00 Last Admin: 01/05/20 16:36 Dose: 28.8 mls/hr Documented by: Promethazine HCl 12.5 mg/ (Sodium Chloride) 50.5 mls @ 202 mls/hr IV Q6H PRN PRN Reason: Nausea And Vomiting Stop: 01/31/20 21:03 Last Infusion: 01/05/20 15:47 Dose: Infused Documented by: Lorazepam (Ativan) 0.5 mg in 1 mls @ 1 mls/min IV Q4H PRN PRN Reason: Anxiety/Agitation Stop: 02/03/20 22:09 Parenteral Electrolytes (Normosol-R) 1,000 mls @ 80 mls/hr IV .[id number] [facility] Stop: 02/04/20 03:44 Last Admin: 01/05/20 04:54 Dose: 80 mls/hr Documented by: Metronidazole (Flagyl) 500 mg in 100 mls @ 100 mls/hr IV Q8H [facility] Stop: 01/15/20 15:59 Last Admin: 01/05/20 17:06 Dose: 100 mls/hr Documented by: Lactulose (Lactulose Syrup 20 Gm/30 Ml Udc) 20 gm PO TID PRN PRN Reason: Constipation Stop: 02/02/20 13:59 Last Admin: 01/04/20 19:03 Dose: 20 gm Documented by: Magnesium Hydroxide (Magnesium Hydroxide Susp 30 Ml Udc) 30 ml PO Q6H PRN PRN Reason: Constipation Stop: 02/02/20 10:58 Last Admin: 01/04/20 11:23 Dose: 30 ml Documented by: Metoprolol Succinate (Metoprolol Succ 25mg Ext Rel Tab) 12.5 mg PO BID [facility] Stop: 02/04/20 03:44 Last Admin: 01/05/20 04:55 Dose: 12.5 mg Documented by: Miscellaneous Information (Consult) 1 ea N/A UD PRN PRN Reason: Consult Stop: 01/31/20 20:45 Pantoprazole Sodium (Pantoprazole 40 Mg Tab) 40 mg PO BID [facility] Stop: 02/04/20 20:59 Polyethylene Glycol (Polyethylene (Miralax) 17 Gm Pack) 17 gm PO DAILY PRN PRN Reason: Constipation Stop: 02/03/20 19:14 Last Admin: 01/04/20 20:20 Dose: 17 gm Documented by: Senna/Docusate Sodium (Docusate Sodium/Senna 50/8.6mg Tab) 1 tab PO BID [facility] Stop: 02/04/20 03:14 Last Admin: 01/05/20 10:14 Dose: Not Given Documented by: PG Care Time/CCT Total # of Minutes Spent Total Time Spent with Patient: Total time spent is greater than 50% in coordination of care (as documented) at patient's floor/unit and/or counseling patient: Coding Level of Care Code 25820 Initial Inpt Care Lvl 3 Diagnoses Paroxysmal atrial fibrillation I48.0 Coronary artery disease I25.10 S/P coronary artery stent placement Z95.5 Tobacco use disorder F17.200 HLD (hyperlipidemia) E78.5
--- NOTE | 2020-01-05 18:17 | Hospitalist Progress Note ---
Date of Service January 05, 2020 Assessment & Plan (1) Acute diverticulitis of intestine: (1) Acute diverticulitis of intestine: (2) Ileus: per admitting service notes: This is a 59-year-old female with significant PMH of CAD with history of 1 FITZ to the mid circumflex in 2018, HLD, MS, tobacco abuse, GERD who presents to ED secondary to left lower quadrant pain x2 days. In ED patient remained hemodynamically stable, on admission she was mildly tachycardic but this was improved during my evaluation. Lab work notable for leukocytosis at 12.6K, H&H 17.1 and 50.6, platelet 238, sodium 134, BUN 12, creatinine 1.17, LFTs WNL. CT scan abdomen pelvis notable moderate colonic diverticulosis with evidence of acute sigmoid diverticulitis. No intraperitoneal free air is identified and there is no organized fluid collection to suggest abscess. The upstream colon is mildly distended and fluid-filled. This could represent a mild reactive ileus or possibly mild colonic obstruction secondary to inflammation/edema of the sigmoid. Nonemergent follow-up colonoscopy is recommended to exclude the less likely possibility of obstructing mass lesion. In ED she received IVF, IV morphine and IV Zosyn. Pt does not meet sepsis criteria on admission per current CMS guidelines, pt with leukocytosis 12.6k, but afebrile, HR 80s, RR 19 admit to med tele continue IV zosyn bowel rest, NPO except sips, chips, meds IVF NSS @ 110cc/hr 1g APAP q8hr, prn morphine severe pain,antiemetics consult general surgery blood cultures ordered 01/05/2020 Increasing abdominal pain, repeat CT abdomen: Progression of colonic distention, possible colonic mass Discussed with Dr. Booker, recommend n.p.o. status, continue IV fluids and IV antibiotics Recommend GI consult Status post post colonoscopy with decompression 01/05/[address] Staci Mejia, diverticulitis related stricture noted, dilated Rectal tube placed Blood cultures negative so far Continue IV Zosyn, Flagyl IV added Paroxysmal atrial fibrillation Likely secondary to pain, ongoing diverticulitis Cardiology service consulted No further intervention at this time Continue metoprolol, aspirin Monitor electrolytes Hypotension - likely from Dehydration, Infection - BP now stable - reduced Metoprolol from 25 to 12.5mg gentle IV fluids - monitor Possible Rectal Bleeding - Plt stable - hold Lovenox monitor closely - resolved Dehydration: clinically, mild elevation in H/H, Cr not RENA IV fluids Coronary artery disease: no cardiac symptoms continue ASA, plavix, statin, metoprolol HLD (hyperlipidemia): continue statin Multiple sclerosis: stable monitor Tobacco use disorder: 1 pack/week x 40 years counselling done Patient declined nicotine patch (8) DVT prophylaxis: d/c Lovenox in light of possible rectal bleeding SCDs, encouraged to ambulate frequently- every hour if possible patient verbalized understanding and agreement plan of care discussed with patient and her at the bedside in detail and at length all questions were answered They are understanding, agreeable, comfortable with the plan of care Follow up: PCP Dr. Grove upon discharge Admission and Anticipated Discharge Date Admission Date: January 01, 2020 Subjective Follow-up for acute diverticulitis, ileus Events of overnight noted Patient developed atrial fibrillation, and increasing abdominal pain CT abdomen repeated: Progression of colonic distention Seen sitting up in bed, with her Manuel visiting Patient not in distress States her left lower quadrant pain seems to be improving today, but still has some nausea No fever or chills No chest pain, palpitations, dizziness, shortness of breath No other symptom Review of Systems Review of Systems: All systems reviewed & are unremarkable except as noted in HPI & below Physical Exam Physical Exam: General- oriented x 3, not in distress, speaks in sentences with no effort or accessory muscle use Eyes- anicteric Neck- no JVD Lungs- clear breath sounds, no crackles, no wheezing bilaterally Heart- normal rate, regular rhythm; no murmurs Abdomen- normal bowel sounds, nondistended, soft, mild left lower quadrant tenderness Extremities- no pretibial edema, no calf tenderness Neuro- alert, oriented x 3; no gross focal neurologic deficits Skin- warm & dry Results & Data Results & Data ([facility]) Vital Signs (Past 12 Hours) Vital Signs Temp Pulse Pulse Resp BP BP Pulse Ox 01/05/20 15:15 36.8 C 88 20 134/98 97 01/05/20 15:05 78 16 156/108 H 97 01/05/20 14:55 80 17 158/109 H 97 01/05/20 14:45 107 H 23 160/109 H 97 01/05/20 14:35 36.9 C 108 H 20 165/120 H 96 01/05/20 12:00 36.8 C 76 18 127/91 98 01/05/20 07:25 36.9 C 82 18 135/103 H 96 01/05/20 06:18 84 134/103 H Laboratory Results Laboratory Results - last 24 hr 01/04/20 01/05/20 01/05/20 22:42 02:32 10:47 WBC 9.29 RBC 4.97 Hgb 15.5 Hct 45.6 MCV 91.8 MCH 31.2 MCHC 34.0 RDW Std Deviation 48.2 H RDW Coeff of Rick 14.3 Plt Count 247 MPV 10.8 H Immature Gran % (Auto) 0.1 Neut % (Auto) 84.7 Lymph % (Auto) 7.1 [place] % (Auto) 7.8 Eos % (Auto) 0.2 Baso % (Auto) 0.1 Neut # (Auto) 7.87 H Lymph # (Auto) 0.66 L [place] # (Auto) 0.72 H Eos # (Auto) 0.02 Baso # (Auto) 0.01 Immature Gran # (Auto) 0.01 Sodium 141 Potassium 3.7 Chloride 113 H Carbon Dioxide 24 Anion Gap 4.0 BUN 2 L Creatinine 0.86 Est Cr Clr Drug Dosing 88.2 Est GFR ( Amer) 85.1 Est GFR (Non-Af Amer) 73.4 BUN/Creatinine Ratio 2.7 L Glucose 113 H Lactate 0.7 Calcium 8.2 L Magnesium 1.9 Total Bilirubin AST ALT Alkaline Phosphatase Total Protein Albumin Globulin Albumin/Globulin Ratio TSH 2.660 COVID-19 Eval Order SARS-CoV-2, RNA, NAAT 01/05/20 01/05/20 01/05/20 10:47 13:00 13:00 WBC RBC Hgb Hct MCV MCH MCHC RDW Std Deviation RDW Coeff of Rick Plt Count MPV Immature Gran % (Auto) Neut % (Auto) Lymph % (Auto) [place] % (Auto) Eos % (Auto) Baso % (Auto) Neut # (Auto) Lymph # (Auto) [place] # (Auto) Eos # (Auto) Baso # (Auto) Immature Gran # (Auto) Sodium 139 Potassium 4.4 D Chloride 110 H Carbon Dioxide 24 Anion Gap 5.0 BUN 2 L Creatinine 0.95 Est Cr Clr Drug Dosing 80.6 Est GFR ( Amer) 75.5 Est GFR (Non-Af Amer) 65.1 BUN/Creatinine Ratio 2.4 L Glucose 125 H Lactate Calcium 8.3 L Magnesium 2.3 Total Bilirubin 0.5 AST 22 ALT 33 Alkaline Phosphatase 83 Total Protein 5.9 L Albumin 2.4 L Globulin 3.5 Albumin/Globulin Ratio 0.7 L TSH COVID-19 [facility] SARS-CoV-2, RNA, NAAT NEGATIVE
[2020-01-05] MEDS: LORazepam 0.5 MG/1 ML VIAL IV PRN (20:34)
[2020-01-05] MEDS ORDERED: PANTOprazole 40 MG TAB PO SCH (21:00)
[2020-01-05] MEDS: PANTOprazole 40 MG in SYRINGE 0 ML IV SCH (21:18)
[2020-01-05] MEDS ORDERED: SODIUM CHLORIDE 0.9% 1000ML 1,000 ML IV ONE (21:49)
[2020-01-05] MEDS ORDERED: DIGOXIN 500 MCG/2 ML AMP IV ONE (21:55)
[2020-01-05] MEDS ORDERED: DIGOXIN 250 MCG in SYRINGE 9 ML IV STA ×2 (22:09→22:47)
[2020-01-05] MEDS: ASPIRIN 81 MG ECTAB PO SCH (22:14)
[2020-01-05] MEDS: ATORVASTATIN 40 MG TAB PO SCH (22:15)
[2020-01-05 22:26] LABS: BUN Creatinine Ratio 3.7 (10-20); Est GFR (African American) 83.9; Est GFR (Non-African American) 72.4; Magnesium 2.2 mg/dl (1.8-2.4); Potassium 3.8 mmol/L (3.5-5.1)
[2020-01-05] MEDS ORDERED: MAGNESIUM SULFATE / D5W 1 GM/100 ML BAG IV ONE (22:32)
[2020-01-05] MEDS ORDERED: METOPROLOL TARTRATE 1 MG/ML VIAL IV ONE (22:36)
[2020-01-05] MEDS: METOPROLOL TARTRATE 1 MG/ML VIAL IV SCH (22:57)
[2020-01-05] MEDS ORDERED: NORMOSOL-R 1,000 ML IV SCH (23:00)
[2020-01-05] MEDS: POTASSIUM CHLORIDE 40 MEQ in SODIUM CHLORIDE 0.45 % 1,000 ML IV SCH (23:07)
[2020-01-06] MEDS: POTASSIUM CHLORIDE / WTR 10 MEQ/100 ML PLCT IV SCH ×2 (00:44→01:57)
[2020-01-06] MEDS: metroNIDAZOLE 500 MG/100 ML BAG IV SCH ×3 (00:44→16:58)
[2020-01-06] MEDS: PIPERACILLIN/TAZOBACTAM 3.375 GM in DEXTROSE 5% 100 ML IV SCH ×3 (00:45→16:58)
[2020-01-06] MEDS: METOPROLOL TARTRATE 1 MG/ML VIAL IV SCH ×4 (04:44→23:11)
--- NOTE | 2020-01-06 08:08 | Surgery Progress Note ---
Date of Service January 06, 2020 Assessment & Plan (1) Colon obstruction: flex sig with decompression tube with diverticular stricture ngt in place prep and segmental resection per Dr Coreas likely this week (2) Acute diverticulitis of intestine: continue IV abx Admission and Anticipated Discharge Date Admission Date: January 01, 2020 Subjective feels better pain improved still passing flatus Review of Systems Constitutional: no fever and no chills Respiratory: no cough and no dyspnea Cardiovascular: no chest pain Gastrointestinal: + abdominal pain; no nausea and no vomiting Genitourinary: no dysuria Musculoskeletal: no back pain Physical Exam Constitutional: well developed and well nourished Neck: trachea midline Cardiovascular: RRR, no murmur, no edema Gastrointestinal (Abdomen): Inspection/Auscultation: abdomen normal to inspection, + abdomen distended and normal bowel sounds Percussion/Palpation: + abdomen tender; no guarding and abdomen not rigid Musculoskeletal: Head/Neck/Chest: normocephalic and head atraumatic Skin: no rashes, warm and dry Results & Data ([facility]) Vital Signs (Past 12 Hours) Vital Signs Temp Pulse Pulse Resp BP BP BP 01/06/20 07:49 36.8 C 84 20 156/72 H 01/06/20 04:44 99 H 111/76 01/06/20 04:00 76 16 111/76 01/06/20 03:19 36.9 C 103 H 16 108/74 01/06/20 00:34 01/06/20 00:30 104 H 01/05/20 23:20 36.7 C 117 H 16 98/68 L 01/05/20 23:02 145 H 01/05/20 22:57 148 H 102/71 01/05/20 22:56 101 H 01/05/20 22:12 101 H Pulse Ox Pulse Ox 01/06/20 07:49 96 01/06/20 04:44 01/06/20 04:00 100 01/06/20 03:19 95 01/06/20 00:34 95 01/06/20 00:30 01/05/20 23:20 94 01/05/20 23:02 01/05/20 22:57 01/05/20 22:56 01/05/20 22:12
[2020-01-06] MEDS: HYDROmorphone INJ 1 MG/ML SYRINGE IV PRN ×4 (08:40→23:37)
[2020-01-06] MEDS: POTASSIUM CHLORIDE 40 MEQ in SODIUM CHLORIDE 0.45 % 1,000 ML IV SCH ×2 (08:42→20:24)
[2020-01-06] MEDS: DOCUSATE SODIUM/SENNA 50/8.6MG TAB PO SCH (08:43)
--- NOTE | 2020-01-06 09:52 | XRay Report ---
KUB HISTORY: Ongoing bowel distention check Colon distention post decompression COMPARISON: CT 01/05/2020 FINDINGS: A catheter projects over the rectum, sigmoid and descending colon with distal tip projected over the expected location of the splenic flexure. There is persistent large and small bowel distent ion which has mildly improved from comparison. Small bowel loops are dilated measuring up to 3.8 cm. Large bowel loops are dilated measuring up to 6.3 cm. An enteric tube is noted with distal tip projec ting over the mid stomach. No renal calculi. No ureteral calculi. No pneumoperitoneum or pneumatosis . No fracture. IMPRESSION: 1. Enteric and rectal tube positioning as above. 2. Persistent large and small bowel distention, mildly improved from comparison. ACT 112: Negative or not required by law. The above report was generated using voice recognition software. It may contain grammatical, syntax o r spelling errors. Electronically signed by: Geronimo Morin M.D. 01/06/2020 9:50 AM
[2020-01-06] MEDS: PANTOprazole 40 MG in SYRINGE 0 ML IV SCH ×2 (11:00→20:29)
[2020-01-06] MEDS ORDERED: COUGH DROP (SUGAR FREE) LOZ 24 LOZ/1 BOX BUCCAL ONE (14:44)
--- NOTE | 2020-01-06 15:25 | Hospitalist Progress Note ---
Date of Service January 06, 2020 Assessment & Plan (1) Acute diverticulitis of intestine: (1) Acute diverticulitis of intestine: (2) Ileus: per admitting service notes: This is a 59-year-old female with significant PMH of CAD with history of 1 FITZ to the mid circumflex in 2018, HLD, MS, tobacco abuse, GERD who presents to ED secondary to left lower quadrant pain x2 days. In ED patient remained hemodynamically stable, on admission she was mildly tachycardic but this was improved during my evaluation. Lab work notable for leukocytosis at 12.6K, H&H 17.1 and 50.6, platelet 238, sodium 134, BUN 12, creatinine 1.17, LFTs WNL. CT scan abdomen pelvis notable moderate colonic diverticulosis with evidence of acute sigmoid diverticulitis. No intraperitoneal free air is identified and there is no organized fluid collection to suggest abscess. The upstream colon is mildly distended and fluid-filled. This could represent a mild reactive ileus or possibly mild colonic obstruction secondary to inflammation/edema of the sigmoid. Nonemergent follow-up colonoscopy is recommended to exclude the less likely possibility of obstructing mass lesion. In ED she received IVF, IV morphine and IV Zosyn. Pt does not meet sepsis criteria on admission per current CMS guidelines, pt with leukocytosis 12.6k, but afebrile, HR 80s, RR 19 admit to med tele continue IV zosyn bowel rest, NPO except sips, chips, meds IVF NSS @ 110cc/hr 1g APAP q8hr, prn morphine severe pain,antiemetics consult general surgery blood cultures ordered 01/06/[address] abdomen: Progression of colonic distention, possible colonic mass s/p Flex Sig 01/04: Diverticular sigmoid stricture. Biopsied. Decompression tube placed. KUB 01/05: 1. Enteric and rectal tube positioning as above. 2. Persistent large and small bowel distention, mildly improved from comparison. Blood cultures negative so far Flagyl added to Zosyn Miralax TID Gen Surg follow up for possible segmental sigmoid resection Needs full colonoscopy as outpatient Paroxysmal atrial fibrillation Likely secondary to pain, ongoing diverticulitis Cardiology service consulted No further intervention at this time Continue metoprolol, aspirin Monitor electrolytes Hypotension - likely from Dehydration, Infection - BP now stable - reduced Metoprolol from 25 to 12.5mg gentle IV fluids - monitor Possible Rectal Bleeding - Plt stable - hold Lovenox monitor closely - resolved Dehydration: clinically, mild elevation in H/H, Cr not RENA IV fluids Coronary artery disease: no cardiac symptoms continue ASA, plavix, statin, metoprolol HLD (hyperlipidemia): continue statin Multiple sclerosis: stable monitor Tobacco use disorder: 1 pack/week x 40 years counselling done Patient declined nicotine patch (8) DVT prophylaxis: d/c Lovenox in light of possible rectal bleeding, possible emergent surgery SCDs, encouraged to ambulate frequently- every hour if possible patient verbalized understanding and agreement plan of care discussed with patient and her daughter at the bedside in detail and at length all questions were answered They are understanding, agreeable, comfortable with the plan of care Follow up: PCP Dr. Grove upon discharge Admission and Anticipated Discharge Date Admission Date: January 01, 2020 Subjective ff up for acute sigmoid diverticulitis seen resting in bed, sitting up daughter at bedside visiting not in distress no nausea today, NG tube in place abdominal pain well controlled, rectal tube draining brown stools no chest pain, dyspnea, palpitations, dizziness no other symptoms Review of Systems Review of Systems: All systems reviewed & are unremarkable except as noted in HPI & below Physical Exam Physical Exam: General- oriented x 3, not in distress, speaks in sentences with no effort or accessory muscle use Eyes- anicteric Nose- NG tube in place: brown output Neck- no JVD Lungs- clear breath sounds BL Heart- normal rate, regular rhythm; no murmurs Abdomen- normal bowel sounds, nondistended, soft, mild LLQ tenderness Extremities- no pretibial edema, no calf tenderness Neuro- alert, oriented x 3; no gross focal neurologic deficits Skin- warm & dry Results & Data Results & Data ([facility]) Vital Signs (Past 12 Hours) Vital Signs Temp Pulse Pulse Resp BP BP BP 01/06/20 15:22 36.5 C 74 20 123/80 01/06/20 11:06 36.7 C 93 H 18 113/73 01/06/20 11:00 93 H 113/73 01/06/20 09:30 86 01/06/20 07:49 36.8 C 84 20 156/72 H 01/06/20 04:44 99 H 111/76 01/06/20 04:00 76 16 111/76 Pulse Ox 01/06/20 15:22 94 01/06/20 11:06 98 01/06/20 11:00 01/06/20 09:30 01/06/20 07:49 96 01/06/20 04:44 01/06/20 04:00 100 Laboratory Results Laboratory Results - last 24 hr 01/05/20 01/05/20 21:58 21:58 Sodium 142 Potassium 3.8 Chloride 111 H Carbon Dioxide 23 Anion Gap 8.0 BUN 3 L Creatinine 0.87 Est Cr Clr Drug Dosing 88.0 Est GFR ( Amer) 83.9 Est GFR (Non-Af Amer) 72.4 BUN/Creatinine Ratio 3.7 L Glucose 102 H Lactate 1.5 Calcium 8.0 L Magnesium 2.2
[2020-01-06] MEDS: PROMETHAZINE HCL 12.5 MG in SODIUM CHLORIDE 0.9% 50 ML IV PRN (20:54)
[2020-01-06] MEDS: ASPIRIN 81 MG ECTAB PO SCH (20:56)
[2020-01-06] MEDS: ATORVASTATIN 40 MG TAB PO SCH (20:56)
[2020-01-06] MEDS: POLYETHYLENE (MIRALAX) 17 GM PACK PO SCH (20:57)
--- NOTE | 2020-01-06 23:47 | Electrocardiogram Report ---
Test Reason : Blood Pressure : / mmHG Vent. Rate : 079 BPM Atrial Rate : 079 BPM P-R Int : 126 ms QRS Dur : 078 ms QT Int : 366 ms P-R-T Axes : 052 085 040 degrees QTc Int : 419 ms Normal sinus rhythm Inferolateral infarct Abnormal ECG When compared with ECG of 04-JAN-2020 18:48, Questionable change in QRS axis QT has shortened Confirmed by Rakesh Tse ([id number]) on 01/06/2020 11:47:27 PM Referred By: REFERRED SELF Confirmed By:Rakesh Tse
[2020-01-06] MEDS ORDERED: NORMOSOL-R 250 ML IV ONE (23:53)
[2020-01-06] MEDS ORDERED: POTASSIUM CHLORIDE / WTR 10 MEQ/100 ML PLCT IV SCH (23:55)
[2020-01-06] MEDS: METOPROLOL TARTRATE 1 MG/ML VIAL IV STA (23:56)
[2020-01-06] MEDS ORDERED: DIGOXIN 250 MCG in SYRINGE 9 ML IV STA (23:59)
[2020-01-07] MEDS: METOPROLOL TARTRATE 1 MG/ML VIAL IV STA
[2020-01-07] MEDS ORDERED: NORMOSOL-R 1,000 ML IV SCH ×2 (00:10→04:00)
[2020-01-07] MEDS: metroNIDAZOLE 500 MG/100 ML BAG IV SCH ×3 (00:25→16:39)
[2020-01-07 00:44] LABS: Basophils # (auto) 0.02 K/uL (0-0.2); Basophils % (auto) 0.3 %; Eosinophils # (auto) 0.21 K/uL (0-0.5); Eosinophils % (auto) 2.8 %; Hematocrit (blood only) 43.3 % (37-47); Hemoglobin 14.4 g/dL (12.0-16.0); Immature Granulocytes # (auto) 0.01 K/uL (0.00-0.02); Immature Granulocytes % (auto) 0.1 %; Lymphocytes # (auto) 1.85 K/uL (1.2-3.4); Lymphocytes % (auto) 24.7 %; Mean Corpuscular Hemoglobin 30.4 pg (25-34); Mean Corpuscular Hgb Conc 33.3 g/dL (32-36); Mean Corpuscular Volume 91.5 fL (80-100); Mean Platelet Volume 10.4 fL (7.4-10.4); Monocytes # (auto) 0.86 K/uL (0.11-0.59); Monocytes % (auto) 11.5 %; Neutrophils # (auto) 4.53 K/uL (1.4-6.5); Neutrophils % (auto) 60.6 %; Platelet Count 273 K/uL (130-400); RDW Coefficient of Variation 14.2 % (11.5-14.5); RDW Standard Deviation 48.1 fL (36.4-46.3); Red Blood Count 4.73 M/uL (4.2-5.4); White Blood Count 7.48 K/uL (4.8-10.8)
[2020-01-07 01:13] LABS: Calcium 7.5 mg/dl (8.5-10.1); Creatinine Clr Calc Pharmacy 97.2 ml/min; Est GFR (African American) 92.9; Est GFR (Non-African American) 80.1; Potassium 4.5 mmol/L (3.5-5.1)
[2020-01-07] MEDS: PIPERACILLIN/TAZOBACTAM 3.375 GM in DEXTROSE 5% 100 ML IV SCH ×3 (01:23→16:38)
[2020-01-07 01:41] LABS: Albumin Level 2.1 gm/dl (3.4-5.0)
[2020-01-07] MEDS: METOPROLOL TARTRATE 1 MG/ML VIAL IV SCH ×4 (06:04→22:17)
--- NOTE | 2020-01-07 07:33 | XRay Report ---
XR KUB/Abdomen 1 view CLINICAL HISTORY: Bowel obstruction COMPARISON STUDY: 01/06/2020 FINDINGS: A nasogastric tube is visualized. There is a colonic tube with its tip projected at the lev el of the proximal descending colon. There is no pathologic colonic distention. There are multiple mi ldly dilated small bowel loops. IMPRESSION: 1. No change in the position of the colonic tube 2. Persistent small bowel dilatation. ACT 112: Negative or not required by law. Electronically signed by: Sujit Doherty M.D. 01/07/2020 7:32 AM
[2020-01-07] MEDS ORDERED: FUROSEMIDE 20 MG in SYRINGE 0 ML IV ONE (08:15)
--- NOTE | 2020-01-07 08:49 | Surgery Progress Note ---
Date of Service January 07, 2020 Assessment & Plan (1) Colon obstruction: Long discussion with the patient and the daughter apparently the patient had had previous to this admission some difficulty moving her bowels which would probably go along with recurrent bouts of diverticulitis that she has had over the last few years and a stricture related to that biopsies were taken at the time of a colonoscopy and we await those results At this point I discussed with him to start hyperalimentation IV diuresis or and tentatively plan for surgery on with the hope that we can institute some bowel prep in the interim All questions were answered order for PICC line and hyperalimentation written we will give her a small dose of the Lasix and keep her IV fluids at 100 total Present on Admission?: Yes Admission and Anticipated Discharge Date Admission Date: January 01, 2020 Subjective Patient feels much better today events over the weekend were reviewed long discussion with the patient the present findings regarding anticipated surgical therapy She feels that she is passing a lot more flatus at this time no abdominal discomfort NG drainage about 200 overnight she would like to have some soda to drink although I told her with the NG tube and probably just come back Physical Exam Physical Exam: She is alert coherent daughter at the bedside She may be a little bit fluid overloaded she has some hand swelling although no ankle edema NG drainage minimal this morning The abdomen is soft there is no tenderness rectal tube still present Results & Data ([facility]) Vital Signs (Past 12 Hours) Vital Signs Temp Pulse Pulse Resp BP BP Pulse Ox 01/07/20 07:52 36.5 C 69 18 110/60 96 01/07/20 06:04 73 104/62 01/07/20 04:02 36.5 C 100 H 18 95/61 L 95 01/07/20 00:00 144 H 106/79 01/06/20 23:44 36.7 C 135 H 16 113/55 L 95 01/06/20 23:11 170 H 113/55 L 01/06/20 22:20 71 PG Care Time/CCT Total # of Minutes Spent Total Time Spent with Patient: Total time spent is greater than 50% in coordination of care (as documented) at patient's floor/unit and/or counseling patient: Coding Level of Care Code 29547 Subseq Hosp Care Lvl 3 Diagnoses Colon obstruction K56.609
[2020-01-07] MEDS: POLYETHYLENE (MIRALAX) 17 GM PACK PO SCH ×3 (09:15→21:11)
--- NOTE | 2020-01-07 09:22 | Gastroenterology Progress Note ---
Date of Service January 07, 2020 Assessment & Plan (1) Colonic stricture: 59 year old female w/ diverticular sigmoid stricture, biopsies pending, decompression tube placed. - GI to sign off - Flush the rectal tube with water every 8 hours to avoid fecal clogging. - Start Miralax TID. - Once clinically improved, can remove the tube. - Add Metronidazole for double anaerobic coverage. - Surgery follow up for segmental sigmoid resection. - Needs full colonoscopy as OP Admission and Anticipated Discharge Date Admission Date: January 01, 2020 Supervising Physician Co-Signing Physician Notes I have seen and examined the patient with JUNAID Eduardo whose note reflects our findings and plan. s/p decompression for underlying sigmoid di verticular stricture. on cipro and flagyl. surgery planning on resection. Subjective S/P FlexSig w/ rectal tube placed. Abd pain generalized. Passing gas. No stool. No black/bloody stools. No nausea/vomiting. Review of Systems Constitutional: no fever and no chills Respiratory: no cough and no dyspnea Cardiovascular: no chest pain and no dyspnea Gastrointestinal: + abdominal pain; no coffee ground emesis, no hematemesis, no blood in stools and no melena Physical Exam Constitutional: well developed and well nourished; no acute distress Respiratory: normal respiratory effort, lungs clear to auscultation Cardiovascular: Rate/Rhythm: regular rate Gastrointestinal (Abdomen): Percussion/Palpation: abdomen soft; abdomen nontender, no guarding and abdomen not rigid Skin: no rashes, warm and dry Results & Data ([facility]) Vital Signs (Past 12 Hours) Vital Signs Temp Pulse Pulse Resp BP BP Pulse Ox 01/07/20 07:52 36.5 C 69 18 110/60 96 01/07/20 06:04 73 104/62 01/07/20 04:02 36.5 C 100 H 18 95/61 L 95 01/07/20 00:00 144 H 106/79 01/06/20 23:44 36.7 C 135 H 16 113/55 L 95 01/06/20 23:11 170 H 113/55 L 01/06/20 22:20 71
[2020-01-07] MEDS ORDERED: SODIUM CHLORIDE 0.9% 1000ML 1,000 ML IV SCH ×2 (09:30→16:00)
[2020-01-07] MEDS: PANTOprazole 40 MG in SYRINGE 0 ML IV SCH ×2 (09:37→21:12)
[2020-01-07] MEDS: HYDROmorphone INJ 1 MG/ML SYRINGE IV PRN ×2 (09:37→21:13)
--- NOTE | 2020-01-07 10:06 | Cardiology Progress Note ---
Date of Service January 07, 2020 Assessment & Plan (1) Paroxysmal atrial fibrillation: (2) Coronary artery disease: (3) S/P coronary artery stent placement: (4) Tobacco use disorder: (5) HLD (hyperlipidemia): ASSESSMENT/PLAN: Paroxysmal Atrial Fibrillation: -- Recurrent A-Fib with RVR last evening lasting 1.5 hours. -- She was completely asymptomatic. -- Continue IV Lopressor as needed. -- Start/Continue Metoprolol Succinate ER 25 mg daily. -- Her atrial fibrillation is likely occurring secondary to her current illness. -- Continue telemetry. -- Recommend IV Amiodarone if she has prolonged or significant recurrence or recurrences of A-Fib while acutely ill. -- No role for anticoagulation therapy now but if she has recurrences in the future after recovering from this acute illness -- would reconsider as her [id number] is 2 based on vascular disease and gender. CAD s/p LCx Drug Eluding Stent 04/10/2018: -- Continue Aspirin 81 mg daily without interruption. -- Continue beta-angelica . -- Continue Atorvastatin 80 mg daily. Tobacco Abuse: -- Strongly encouraged to stop smoking. Dyslipidemia: -- Atorvastatin 80 mg daily. Bowel Obstruction secondary to Colonic Stricture/Diverticulitis: -- Management as per Gastroenterology and Surgery. -- Anticipated surgical intervention is 01/10/2020. -- Patient is an acceptable surgical risk to proceed, there is no need for further cardiac evaluation at the present time. -- Continue Aspirin 81 mg daily - including the morning of surgery. -- Give IV or oral beta angelica on the morning of surgery. -- Resume Plavix 75 mg post-operatively when patient taking oral medications. Admission and Anticipated Discharge Date Admission Date: January 01, 2020 Subjective Mrs. Hernandez is a 59 year old female with a history of CAD s/p Inferior STEMI s/p Left Circumflex Drug Eluding Stent 04/10/2018, Paroxysmal Atrial Fibrillation, Dyslipidemia, Tobacco Use, and Multiple Sclerosis who was admitted with a bowel obstruction secondary a colonic stricture. On 01/04/2020, patient had a brief episode of atrial fibrillation lasting approximately 1 minute but later that day at approximately 10:06 p.m. -- she developed atrial fibrillation with rapid ventricular response that lasted approximately 2 hours before resolving. This atrial fibrillation episode occurred when her abdominal pain intensified and she was quite uncomfortable. Her worsening pain prompted CT abdomen /pelvis overnight, which demonstrated worsening bowel obstruction with sigmoid diverticulitis. She subsequently underwent colonoscopy with decompression on 01/05/2020 and she currently has an NG tube in place. Her abdomen is still sore, but it is not nearly as painful had been. Patient did well over the weekend but had another episode of A-Fib with RVR that began at last night at approximately 10:30 p.m. and lasted until midnight. She denies having any symptoms related to atrial fibrillation. She specifically denies any sensation of palpitations or that her heart is racing. She specifically denies any chest pain, heaviness, tightness, pressure, or discomfort. She denies neck, jaw, back, or arm pain. No SOB, orthopnea, or pnd. No syncope or near syncope. She has not had any signs or symptoms of stroke or mini-stroke. Patient will be having abdominal surgery later this week on 01/10/2020. HISTORICAL BACKGROUND: She presented to [facility] on 04/10/2018 with acute onset chest pain and inferior ST elevations on EKG. At time of arrival had been having persistent severe chest pain for more than 2 hours. Patient taken emergently to the Cardiac Catheterization Lab as a Heart Alert. She was found to have a subtotally occluded mid LCx which was treated with a single drug-eluting stent (Dimitris 3.0 x 18 mm FITZ). She also had a 50% distal LAD stenosis, 70% D1 stenosis disease, and 70% D2 stenosis. Post procedure Troponin I peaked at 10. Echocardiogram showed preserved LV function with only mild inferolateral hypokinesis. She was discharged home on hospital day 2 on DAPT in the form of Aspirin and Brilinta. Physical Exam Physical Exam: GENERAL: Patient in no acute distress. HEENT: Head is atraumatic, normocephalic. EOM's intact. Facies symmetric. No perioral cyanosis. NG tube is in place. NECK: No JVD. JVP is at the level of the clavicle sitting upright. Carotid upstrokes are + 2 bilaterally. No bruits are noted. CHEST/LUNGS: Clear to auscultation throughout all lung [place]. No wheezes, rales, or crackles. CVS: S1 and S2 are regular at 77 bpm without murmurs, gallops, or rubs. PMI is nondisplaced. No lifts, heaves, or thrills. No abdominal aortic or renal bruits. ABDOMINAL EXAM: Non-distended. Bowel sounds are present. EXTREMITIES: No clubbing or cyanosis. No edema. Intact posterior tibial and radial pulses bilaterally. NEUROLOGIC EXAM: Patient is awake, alert, and oriented. Pleasant and cooperative. Answers questions appropriately. Speech is clear. TELEMETRY: -- A-fib with RV last night with its onset at approximately 10:30 pm and lasting 1.5 hours. -- Spontaneous conversion to NSR at approximately midnight. -- Predominantly in a NSR with PAC's. Results & Data ([facility]) Vital Signs (Past 12 Hours) Vital Signs Temp Pulse Pulse Resp BP BP Pulse Ox 01/07/20 07:52 36.5 C 69 18 110/60 96 01/07/20 06:04 73 104/62 01/07/20 04:02 36.5 C 100 H 18 95/61 L 95 01/07/20 00:00 144 H 106/79 01/06/20 23:44 36.7 C 135 H 16 113/55 L 95 01/06/20 23:11 170 H 113/55 L 01/06/20 22:20 71 Laboratory Results Laboratory Results - last 24 hr 01/07/20 01/07/20 01/07/20 00:26 00:26 11:13 WBC 7.48 RBC 4.73 Hgb 14.4 Hct 43.3 MCV 91.5 MCH 30.4 MCHC 33.3 RDW Std Deviation 48.1 H RDW Coeff of Rick 14.2 Plt Count 273 MPV 10.4 Immature Gran % (Auto) 0.1 Neut % (Auto) 60.6 Lymph % (Auto) 24.7 [place] % (Auto) 11.5 Eos % (Auto) 2.8 Baso % (Auto) 0.3 Neut # (Auto) 4.53 Lymph # (Auto) 1.85 [place] # (Auto) 0.86 H Eos # (Auto) 0.21 Baso # (Auto) 0.02 Immature Gran # (Auto) 0.01 Sodium 141 Potassium 4.5 D Chloride 113 H Carbon Dioxide 24 Anion Gap 4.0 BUN 6 L Creatinine 0.80 Est Cr Clr Drug Dosing 97.2 Est GFR ( Amer) 92.9 Est GFR (Non-Af Amer) 80.1 BUN/Creatinine Ratio 8.0 L Glucose 84 Calcium 7.5 L Phosphorus Pending Magnesium 2.0 Albumin 2.1 L Medications Administered Active Medications Generic Name Dose Route Start Last Admin Trade Name Freq PRN Reason Stop Dose Admin Acetaminophen 650 mg 01/05/20 00:34 Acetaminophen 325 Mg Tab PO 02/04/20 00:33 Q4H PRN Pain or Fever Aspirin 81 mg 01/01/20 21:30 01/06/20 20:56 Ecotrin Ectab PO 01/31/20 21:29 Not Given HS LAMONT Atorvastatin Calcium 80 mg 01/01/20 21:30 01/06/20 20:56 Lipitor PO 01/31/20 21:29 Not Given HS L[facility]ONT Hydromorphone HCl 1 mg 01/03/20 10:20 01/07/20 09:37 Hydromorphone Inj 1 Mg/Ml Syringe IV 01/17/20 10:19 1 mg Q3H PRN Administration Pain Piperacillin Sod/Tazobactam 115 mls @ 28.75 mls/hr 01/02/20 00:00 01/07/20 0 9:36 Sod 3.375 gm/ Dextrose IV 01/12/20 00:00 28.8 mls/hr Q8H [facility] Administration Protocol Promethazine HCl 12.5 mg/ 50.5 mls @ 202 mls/hr 01/01/20 21:04 01/06/20 21:10 Sodium Chloride IV 01/31/20 21:03 Infused Q6H PRN Infusion Nausea And Vomiting Lorazepam 0.5 mg in 1 mls @ 1 mls/min 01/04/20 22:10 01/05/20 20:34 Ativan IV 02/03/20 22:09 1 mls/min Q4H PRN Administration Anxiety/Agitation Metronidazole 500 mg in 100 mls @ 100 mls/hr 01/05/20 16:00 01/07/20 10:37 Flagyl IV 01/15/20 15:59 Infused Q8H [facility] Infusion Pantoprazole Sodium 40 mg/ 10 mls @ 5 mls/min 01/05/20 21:00 01/07/20 09:37 Syringe IV 02/04/20 20:59 5 mls/min BID [facility] Administration Sodium Chloride 1,000 mls @ 80 mls/hr 01/07/20 09:30 01/07/20 11:14 Nss 1000ml IV 02/06/20 09:29 80 mls/hr .[id number] [facility] Administration Metoprolol Succinate 12.5 mg 01/05/20 03:45 01/05/20 22:15 Metoprolol Succ 25mg Ext Rel Tab PO 02/04/20 03:44 Not Given BID L[facility]ONT Metoprolol Tartrate 2.5 mg 01/05/20 22:30 01/07/20 06:04 Metoprolol Tartrate 1 Mg/Ml Vial IV 02/04/20 22:29 2.5 mg Q6H [facility] Administration Miscellaneous Information 1 01/01/20 20:46 Consult N/A 01/31/20 20:45 UD PRN Consult Miscellaneous Information 1 01/07/20 10:55 Tpn/Ppn Consult Pharmacy N/A 02/06/20 10:54 UD [facility] Polyethylene Glycol 17 gm 01/06/20 21:00 01/07/20 09:15 Polyethylene (Miralax) 17 Gm Pack PO 02/05/20 20:59 Not Given TID [facility] PG Care Time/CCT Total # of Minutes Spent Total Time Spent with Patient: Total time spent is greater than 50% in coordination of care (as documented) at patient's floor/unit and/or counseling patient: Coding Level of Care Code 57292 Subseq Hosp Care Lvl 3 Diagnoses Paroxysmal atrial fibrillation I48.0 Coronary artery disease I25.10 S/P coronary artery stent placement Z95.5 Tobacco use disorder F17.200 HLD (hyperlipidemia) E78.5
[2020-01-07] MEDS ORDERED: TPN/PPN CONSULT PHARMACY SCH (10:55)
[2020-01-07] MEDS ORDERED: TPN/PPN CONSULT PHARMACY STA (12:19)
--- NOTE | 2020-01-07 12:26 | Electrocardiogram Report ---
Test Reason : Blood Pressure : / mmHG Vent. Rate : 073 BPM Atrial Rate : 073 BPM P-R Int : 136 ms QRS Dur : 078 ms QT Int : 414 ms P-R-T Axes : 048 005 030 degrees QTc Int : 456 ms Normal sinus rhythm Possible Left atrial enlargement Possible Lateral infarct (cited on or before 10-APR-2018) Inferior infarct (cited on or before 10-APR-2018) Abnormal ECG When compared with ECG of 11-APR-2018 00:28, Questionable change in QRS axis ST no longer elevated in Inferior leads Confirmed by Josef Mayberry ([id number]) on 01/07/2020 12:26:17 PM Referred By: REFERRED SELF Confirmed By:Josef Mayberry
--- NOTE | 2020-01-07 13:19 | Pharmacy Report ---
Pharmacy PN Initial Consult - Date of Service January 07, 2020 - Scope Pharmacy has been consulted to manage parenteral nutrition orders and order appropriate labs. As part of the Nutrition Support Team guidelines, pharmacy will work in conjunction with dietary when determining the patients caloric needs. - Subjective The patient is a 59 year old F admitted on 01/01/20 19:13 for bowel obstruction secondary to sigmoid colonic stricture. Patient is to receive parenteral nutrition Day # 1 today. Pertinent PMH: diverticulitis CAD STEMI stenting of LCX 2018 a fib HLD MS - Objective Height: 5 ft 8 in Weight: 105.9 kg Diet: NPO Vascular Access:: peripheral (MIDLINE placed today) Intake & Output (Last 24Hrs): Intake & Output 01/05/20 01/06/20 01/07/20 01/08/20 06:59 06:59 06:59 06:59 Intake Total 4140.016 / 4140.016 3746.333 / 3746.333 3868.833 / 3868.833 1100 / 1100 Output Total 551 / 551 900 / 900 3600 / 3600 Balance 3589.016 / 3589.016 2846.333 / 2846.333 268.833 / 226.816 6082 / 1100 Weight 106.8 kg 110 kg 105.9 kg 105.9 kg Cumulative I/O = 17.8L positive Additional Fluid Losses/Gains:: NS @80cc/hr Zosyn + Metronidazole IV providing 600mL/day Laboratory Data (Last 24 Hrs):: 01/07/20 01/07/20 00:26 11:13 Sodium 141 Potassium 4.5 D Chloride 113 H Carbon Dioxide 24 BUN 6 L Creatinine 0.80 Glucose 84 Calcium 7.5 L Phosphorus 2.5 Magnesium 2.0 Albumin 2.1 L Recent Pertinent Medications:: Pantoprazole IV Zosyn Metronidazole Nutrition Assessment:: Please refer to the Notes section of the EMR for the most recent emergency care attendant note. - Assessment Patient admitted to the hospital on 12/31 for abd pain, nausea, dehydration and constipation. Patient was found to have sigmoid diverticulitis on imaging. Patient's PO intake has remained poor since admission and has been NPO since the . Surgical service has requested initiation of TPN/PPN due to anticipated prolonged NPO and inadequate PO intake. Surgery, sig colon resection, may take place on 01/09. Patient is currently limited to PERIPHERAL IV access only. MIDLINE was placed today - thus we are limited by osmolality and likely will not be able to provide caloric goals, not to mention this patient has a significant cardiovascular history and is already +17L fluid balance - thus would be at risk for fluid overload. Provider's have mentioned initiating diuresis in the near future. Surgery has requested total IVF rate of 100cc/hr (maint IVF + PPN). Provider's notes reviewed, lung clear to auscultation, no JVD, no edema. No recent CXR. Today's bag of TPN will provide 1920mL (80cc/hr). Electrolytes reviewed, hyperchloremia noted. Will use a greater amount of acetate salts in today's TPN bag. However pt did have NGT to LIS placed therefore Na and Cl supplementation may be required in PPN depending on output. Monitor K+ and Mg closely given h/o a fib and cardiac dz, new start parenteral nutrition and potential diuresis in next 24 hrs. - Plan For day 1 of PN administration, the following will be ordered: Macronutrients Amino acids 50 grams/day Dextrose 125 grams/day Lipids 50 grams/day Micronutrients Combined electrolytes 40 mL - contains 35 mEq Na, 20 meq K, 4.5 mEq Ca, 5 mEq Mg, 35 mEq Cl, 29.5 mEq acetate per 20 mL Sodium phosphate 27 MMol Sodium chloride 0 mEq Sodium acetate 20 mEq Potassium phosphate 0 mMol Potassium chloride 0 mEq Potassium acetate 40 mEq Magnesium sulfate 8.12 mEq Calcium gluconate 0 mEq Multivitamins 10 mL Trace Elements 1 mL Additional additives: Thiamine 100mg, Folic Acid 1mg Total volume 1920 mL to be infused over 24 hrs will provide 1125 kcal/day Final osmolarity 818 mOsm/L (maximum for PPN is 900 mOsm/L) Labs to be ordered per PN order protocol Pharmacy will follow and adjust parenteral nutrition orders on a daily basis. Thank you.
[2020-01-07] MEDS ORDERED: METOPROLOL TARTRATE 1 MG/ML VIAL IV STA ×2 (15:15→15:28)
[2020-01-07] MEDS ORDERED: Custom Peripheral Pn 1,920 ML in TPN BAG 0 ML IV SCH (16:00)
[2020-01-07] MEDS ORDERED: DEXTROSE 10% 1,000 ML IV PRN (16:00)
[2020-01-07] MEDS ORDERED: 0.2 MICRON FILTER SET 1 EA IV ONE (16:15)
[2020-01-07] MEDS ORDERED: AMIODARONE / D5W 150 MG/100 ML BAG IV SCH (16:15)
[2020-01-07] MEDS ORDERED: AMIODARONE / D5W 360 MG/200 ML BAG IV SCH (16:25)
--- NOTE | 2020-01-07 16:45 | Hospitalist Progress Note ---
Date of Service January 07, 2020 Assessment & Plan (1) Acute diverticulitis of intestine: (1) Acute diverticulitis of intestine: (2) Ileus: per admitting service notes: This is a 59-year-old female with significant PMH of CAD with history of 1 FITZ to the mid circumflex in 2018, HLD, MS, tobacco abuse, GERD who presents to ED secondary to left lower quadrant pain x2 days. In ED patient remained hemodynamically stable, on admission she was mildly tachycardic but this was improved during my evaluation. Lab work notable for leukocytosis at 12.6K, H&H 17.1 and 50.6, platelet 238, sodium 134, BUN 12, creatinine 1.17, LFTs WNL. CT scan abdomen pelvis notable moderate colonic diverticulosis with evidence of acute sigmoid diverticulitis. No intraperitoneal free air is identified and there is no organized fluid collection to suggest abscess. The upstream colon is mildly distended and fluid-filled. This could represent a mild reactive ileus or possibly mild colonic obstruction secondary to inflammation/edema of the sigmoid. Nonemergent follow-up colonoscopy is recommended to exclude the less likely possibility of obstructing mass lesion. In ED she received IVF, IV morphine and IV Zosyn. Pt does not meet sepsis criteria on admission per current CMS guidelines, pt with leukocytosis 12.6k, but afebrile, HR 80s, RR 19 admit to med tele continue IV zosyn bowel rest, NPO except sips, chips, meds IVF NSS @ 110cc/hr 1g APAP q8hr, prn morphine severe pain,antiemetics consult general surgery blood cultures ordered 01/07/[address] abdomen: Progression of colonic distention, possible colonic mass s/p Flex Sig 01/04: Diverticular sigmoid stricture. Biopsied. Decompression tube placed. KUB 01/05: 1. Enteric and rectal tube positioning as above. 2. Persistent large and small bowel distention, mildly improved from comparison. Blood cultures negative so far Flagyl added to Zosyn Miralax TID Plan for sigmoid resection on , for now TPN via PICC line Discussed with Dr. Coreas N.p.o. for now except meds Paroxysmal atrial fibrillation Likely secondary to pain, ongoing diverticulitis Cardiology service consulted Amiodarone drip started Metoprolol discontinued aspirin continued Monitor electrolytes Hypotension - likely from Dehydration, Infection - BP now stable - monitor Possible Rectal Bleeding - Plt stable -Resolved Dehydration: clinically, mild elevation in H/H, Cr not RENA IV fluids Coronary artery disease: no cardiac symptoms continue ASA, statin General surgery recommending to hold Plavix in preparation for surgery on , okay to hold Plavix per cardiology Usual metoprolol XL on hold as patient now transitioned to amiodarone drip for atrial fibrillation HLD (hyperlipidemia): continue statin Multiple sclerosis: stable monitor Tobacco use disorder: 1 pack/week x 40 years counselling done Patient declined nicotine patch DVT prophylaxis: restart Heparin SC q8h, ok with GI, monitor for rectal bleed SCDs, encouraged to ambulate frequently- every hour if possible patient verbalized understanding and agreement plan of care discussed with patient in detail and at length all questions were answered she is understanding, agreeable, comfortable with the plan of care Follow up: PCP Dr. Grove upon discharge Admission and Anticipated Discharge Date Admission Date: January 01, 2020 Subjective ff up for acute sigmoid diverticulitis, with bowel obstruction Seen resting in bed, comfortable, not in distress No nausea, some mild left lower quadrant pain, improved with analgesics Had A. fib episodes overnight but No shortness of breath, palpitations, dizziness, chest pain No fevers or chills No other symptoms Review of Systems Review of Systems: All systems reviewed & are unremarkable except as noted in HPI & below Physical Exam Physical Exam: General- oriented x 3, not in distress, speaks in sentences with no effort or accessory muscle use Eyes- anicteric Nose-NG tube in place draining brown output Neck- no JVD Lungs- clear breath sounds bilaterally Heart- normal rate, regular rhythm; no murmurs Abdomen- normal bowel sounds, nondistended, soft, nontender Extremities-trace pretibial edema, no calf tenderness Neuro- alert, oriented x 3; no gross focal neurologic deficits Skin- warm & dry Results & Data Results & Data ([facility]) Vital Signs (Past 12 Hours) Vital Signs Temp Pulse Pulse Resp BP BP BP 01/07/20 15:36 36.5 C 135 H 18 135/104 H 01/07/20 15:18 158 H 133/104 H 01/07/20 11:38 83 134/73 01/07/20 11:17 36.5 C 78 16 134/73 01/07/20 07:52 36.5 C 69 18 110/60 01/07/20 06:04 73 104/62 Pulse Ox 01/07/20 15:36 93 01/07/20 15:18 01/07/20 11:38 01/07/20 11:17 95 01/07/20 07:52 96 01/07/20 06:04 Laboratory Results Laboratory Results - last 24 hr 01/07/20 01/07/20 01/07/20 00:26 00:26 11:13 WBC 7.48 RBC 4.73 Hgb 14.4 Hct 43.3 MCV 91.5 MCH 30.4 MCHC 33.3 RDW Std Deviation 48.1 H RDW Coeff of Rick 14.2 Plt Count 273 MPV 10.4 Immature Gran % (Auto) 0.1 Neut % (Auto) 60.6 Lymph % (Auto) 24.7 [place] % (Auto) 11.5 Eos % (Auto) 2.8 Baso % (Auto) 0.3 Neut # (Auto) 4.53 Lymph # (Auto) 1.85 [place] # (Auto) 0.86 H Eos # (Auto) 0.21 Baso # (Auto) 0.02 Immature Gran # (Auto) 0.01 Sodium 141 Potassium 4.5 D Chloride 113 H Carbon Dioxide 24 Anion Gap 4.0 BUN 6 L Creatinine 0.80 Est Cr Clr Drug Dosing 97.2 Est GFR ( Amer) 92.9 Est GFR (Non-Af Amer) 80.1 BUN/Creatinine Ratio 8.0 L Glucose 84 POC Glucose Calcium 7.5 L Phosphorus 2.5 Magnesium 2.0 Albumin 2.1 L 01/07/20 12:17 WBC RBC Hgb Hct MCV MCH MCHC RDW Std Deviation RDW Coeff of Rick Plt Count MPV Immature Gran % (Auto) Neut % (Auto) Lymph % (Auto) [place] % (Auto) Eos % (Auto) Baso % (Auto) Neut # (Auto) Lymph # (Auto) [place] # (Auto) Eos # (Auto) Baso # (Auto) Immature Gran # (Auto) Sodium Potassium Chloride Carbon Dioxide Anion Gap BUN Creatinine Est Cr Clr Drug Dosing Est GFR ( Amer) Est GFR (Non-Af Amer) BUN/Creatinine Ratio Glucose POC Glucose 78 Calcium Phosphorus Magnesium Albumin
[2020-01-07] MEDS: ASPIRIN 81 MG ECTAB PO SCH (17:54)
[2020-01-07] MEDS: ATORVASTATIN 40 MG TAB PO SCH (21:11)
[2020-01-07] MEDS: HEPARIN SOD 5,000 UNIT/0.5 ML VIAL SQ SCH (21:12)
[2020-01-07] MEDS: AMIODARONE / D5W 360 MG/200 ML BAG IV SCH (22:14)
[2020-01-08] MEDS: metroNIDAZOLE 500 MG/100 ML BAG IV SCH ×4 (00:29→23:59)
[2020-01-08] MEDS: PIPERACILLIN/TAZOBACTAM 3.375 GM in DEXTROSE 5% 100 ML IV SCH ×4 (00:29→23:59)
[2020-01-08] MEDS: METOPROLOL TARTRATE 1 MG/ML VIAL IV SCH ×3 (04:43→17:43)
[2020-01-08] MEDS: HEPARIN SOD 5,000 UNIT/0.5 ML VIAL SQ SCH ×3 (06:32→20:42)
[2020-01-08 08:23] LABS: BUN Creatinine Ratio 10.2 (10-20); Calcium 8.4 mg/dl (8.5-10.1); Creatinine Clr Calc Pharmacy 91.5 ml/min; Est GFR (African American) 90.1; Est GFR (Non-African American) 77.8; Magnesium 2.3 mg/dl (1.8-2.4); Phosphorus 3.1 mg/dl (2.5-4.9); Potassium 3.5 mmol/L (3.5-5.1)
--- NOTE | 2020-01-08 08:40 | XRay Report ---
KUB CLINICAL HISTORY: Follow-up bowel obstruction. FINDINGS: 2 AP, portable, supine abdominal radiographs are compared to study dated 01/07/2020 and allyson elated with abdominal CT dated 01/05/2020. An enteric tube projects over the proximal stomach. A recta l tube projects over the descending colon. There is persistent gaseous distention of the small bowel loops and right colon. Small bowel loops measure up to 3.8 cm in diameter. This has modestly improved from yesterday. No evidence of intraperitoneal free air is seen on these supine images. No abnormal abdominal calcifications are identified. The skeletal structures are osteopenic and appear intact. IMPRESSION: 1. An enteric tube and rectal tube are unchanged in position. 2. There is persistent gaseous distention of the small bowel and colon, modestly improved from yester day. Electronically signed by: Mumtaz Suggs M.D. 01/08/2020 8:38 AM
--- NOTE | 2020-01-08 09:03 | Cardiology Progress Note ---
Date of Service January 08, 2020 Assessment & Plan (1) Paroxysmal atrial fibrillation: 2. Coronary artery disease post prior SD with FITZ to circumflex 03/2018 3. Bowel obstruction secondary to colonic stricture/diverticulitis Recurrent A. fib with RVR this morning. Remains asymptomatic and hemodynamically stable. On exam well-perfused with no signs of heart failure IV amiodarone restarted. OK to continue at 0.5 mg/min --Give metoprolol 2.5 IV now. Would continue scheduled metoprolol, change hold parameters so that given unless heart rate less than 50. If converts to sinus rhythm and heart rate consistently lower than 50 would stop amiodarone and continue scheduled metoprolol. No need for anticoagulation at this time Okay to continue to hold clopidogrel. We will follow Admission and Anticipated Discharge Date Admission Date: January 01, 2020 Subjective Recurrent atrial fibrillation with RVR starting just before 7 this morning. Denies recurrent chest pain. Breathing comfortably. Abdominal pain worse this morning. Anxious for surgery. Review of Systems Review of Systems: All systems reviewed & are unremarkable except as noted in HPI & below Physical Exam Physical Exam: General: Uncomfortable, no acute distress HEENT: Sclerae anicteric, NG tube in place Lungs: Clear to auscultation bilaterally Cardiac: Tachycardic, irregularly irregular Abdomen: Soft, diffuse tenderness Extremities: Warm, well perfused, no edema. 2+ radial pulses Skin: No rashes or lesions. Neuro: Nonfocal Psych: Alert orient x3, normal affect and mood Results & Data ([facility]) Vital Signs (Past 12 Hours) Vital Signs Temp Pulse Pulse Resp BP BP BP 01/08/20 07:13 98.1 F 117 H 16 118/81 01/08/20 04:43 55 L 01/08/20 03:31 97.9 F 80 18 103/66 01/07/20 23:08 98.2 F 68 16 100/69 01/07/20 22:17 69 103/67 Pulse Ox 01/08/20 07:13 96 01/08/20 04:43 01/08/20 03:31 95 01/07/20 23:08 94 01/07/20 22:17 PG Care Time/CCT Total # of Minutes Spent Total Time Spent with Patient: Total time spent is greater than 50% in coordination of care (as documented) at patient's floor/unit and/or counseling patient: Coding Level of Care Code 58893 Subseq Hosp Care Lvl 3 Diagnoses Paroxysmal atrial fibrillation I48.0
[2020-01-08] MEDS: ASPIRIN 81 MG ECTAB PO SCH (09:16)
[2020-01-08] MEDS: PANTOprazole 40 MG in SYRINGE 0 ML IV SCH ×2 (09:30→20:42)
[2020-01-08] MEDS: POLYETHYLENE (MIRALAX) 17 GM PACK PO SCH ×3 (09:30→20:43)
[2020-01-08] MEDS: HYDROmorphone INJ 1 MG/ML SYRINGE IV PRN ×3 (09:52→21:59)
--- NOTE | 2020-01-08 10:06 | Surgery Progress Note ---
Date of Service January 08, 2020 Assessment & Plan (1) Colonic stricture: Continues with NGT and rectal tube. NGT put out ~150cc since 7am + gas, but no BM PICC placed yesterday and she has been started on TPN Continue IV zosyn/flagyl Cardiology following for afib Will plan for surgical intervention this upcoming with Dr. Coreas for colon resection; will consider bowel prep tomorrow pending progress Pt seen and examined with Dr. Coreas Admission and Anticipated Discharge Date Admission Date: January 01, 2020 Subjective Patient seen resting in bed. Says she is passing gas and starting to feel "rumblings". No BM yet. Physical Exam Physical Exam: awake/alert Gastrointestinal (Abdomen): Inspection/Auscultation: abdomen not distended Percussion/Palpation: abdomen soft; abdomen nontender + NGT- bilious output + rectal tube Results & Data ([facility]) Vital Signs (Past 12 Hours) Vital Signs Temp Pulse Pulse Resp BP BP BP 01/08/20 07:13 36.7 C 117 H 16 118/81 01/08/20 04:43 55 L 01/08/20 03:31 36.6 C 80 18 103/66 01/07/20 23:08 36.8 C 68 16 100/69 01/07/20 22:17 69 103/67 Pulse Ox 01/08/20 07:13 96 01/08/20 04:43 01/08/20 03:31 95 01/07/20 23:08 94 01/07/20 22:17 PG Care Time/CCT Total # of Minutes Spent Total Time Spent with Patient: Total time spent is greater than 50% in coordination of care (as documented) at patient's floor/unit and/or counseling patient: Coding Level of Care Code 21818 Subseq Hosp Care Lvl 1 Diagnoses Colonic stricture K56.699
[2020-01-08] MEDS ORDERED: CHLORASEPTIC 1.4% SOLN 180 ML BTL MT PRN (10:40)
--- NOTE | 2020-01-08 10:42 | Pharmacy Report ---
PHA: Parenteral Nutrition Con - Date of Service January 08, 2020 - Scope Pharmacy was consulted on 01/07/20 to manage parenteral nutrition orders for this patient. - Subjective The patient is currently on day 2 of PERIPHERAL parenteral nutrition for BOWEL OBSTRUCTION SECONDARY TO SIGMOID COLON STRICTURE / DIVERTICULITIS. - Objective Height: 5 ft 8 in Weight: 102.8 kg Diet: NPO Vascular Access:: MIDLINE Intake & Output (24hrs):: Intake & Output 01/06/20 01/07/20 01/08/20 01/09/20 06:59 06:59 06:59 06:59 Intake Total 3746.333 / 3746.333 3868.833 / 3868.833 2491.482 / 2491.482 100 / 100 Output Total 900 / 900 3600 / 3600 3175 / 3175 600 / 600 Balance 2846.333 / 2846.333 268.833 / 268.833 -683.518 / -683.518 -500 / -500 Weight 110 kg 105.9 kg 102.8 kg Laboratory Data (Last 24 Hr):: 01/07/20 01/08/20 11:13 07:33 Sodium 141 Potassium 3.5 D Chloride 105 Carbon Dioxide 29 BUN 8 Creatinine 0.82 Glucose 104 H Calcium 8.4 L Phosphorus 2.5 3.1 Magnesium 2.3 Triglycerides 143 Recent Pertinent Medications:: Furosemide 20mg IV x 1 01/06 Amiodarone gtt @0.5mg/min running this AM (source of dextrose) Zosyn (source of dextrose) Metronidazole Nutrition Assessment:: Please refer to the Notes section of the EMR for 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 - Assessment Patient appears to be tolerating PPN well at this time. Electrolytes reviewed, no repletion orders needed. Hyperchloremia has resolved. Potassium has fallen from 4.5 to 3.5 over last 24 hrs - will increase total in today's bag given recurrence of a fib. Ideally would like to keep K > 4 and Mg > 2 in this patient. Good UOP last 24 hrs. Only 300mL NGT output noted last 24 hrs Cardiology consult note from this AM reviewed, per provider's PE: lungs clear, no signs of heart failure, no edema noted Amiodarone gtt was initiated in last 24 hrs. This infusion together with Zosyn will provide 700mL D5W each day (35gm dextrose). Will increase volume of PPN to 1992mL to keep total continuous IVF rate 100cc/hr or less (Amiodarone gtt @16.7cc/hr + PPN @83cc/hr). NS will be stopped. Amino acids in TPN will be advanced to max permitted for peripheral line o smolality. Current PPN + other dextrose sources will provide ~67% of caloric goals. - Plan For day 2 of PN administration, the following will be ordered: Macronutrients Amino acids 65 grams/day Dextrose 125 grams/day Lipids 50 grams/day Micronutrients Combined electrolytes 40 mL - contains 35 mEq Na, 20 meq K, 4.5 mEq Ca, 5 mEq Mg, 35 mEq Cl, 29.5 mEq acetate per 20 mL Sodium phosphate 27 MMol Sodium chloride 0 mEq Sodium acetate 20 mEq Potassium phosphate 0 mMol Potassium chloride 40 mEq Potassium acetate 40 mEq Magnesium sulfate 8.12 mEq Calcium gluconate 0 mEq Multivitamins 10 mL Trace Elements 1 mL Additional additives: Thiamine 100mg, Folic acid 1mg Total volume 1992 mL to be infused over 24 hrs will provide 1185 kcal/day Final osmolarity 895 mOsm/L (maximum for PPN is 900 mOsm/L) Labs, as indicated, will be ordered per protocol Pharmacy will continue to follow and adjust parenteral nutrition orders on a daily basis. Thank you for allowing us to participate in the care of this patient.
[2020-01-08] MEDS ORDERED: Nursing to Pharmacy Communication SCH (10:45)
--- NOTE | 2020-01-08 12:38 | Electrocardiogram Report ---
Test Reason : Blood Pressure : / mmHG Vent. Rate : 109 BPM Atrial Rate : 110 BPM P-R Int : 000 ms QRS Dur : 086 ms QT Int : 316 ms P-R-T Axes : 000 078 041 degrees QTc Int : 425 ms Atrial fibrillation with rapid ventricular response Abnormal ECG When compared with ECG of 06-JAN-2020 07:16, Atrial fibrillation has replaced Sinus rhythm Confirmed by Josef Mayberry ([id number]) on 01/08/2020 12:38:05 PM Referred By: REFERRED SELF Confirmed By:Josef Mayberry
[2020-01-08] MEDS ORDERED: TPN IV SCH (16:00)
[2020-01-08] MEDS ORDERED: PERIPHERAL PN IV SCH (16:00)
[2020-01-08] MEDS: AMIODARONE / D5W 360 MG/200 ML BAG IV SCH (17:32)
--- NOTE | 2020-01-08 18:03 | Hospitalist Progress Note ---
Date of Service January 08, 2020 Assessment & Plan (1) Acute diverticulitis of intestine: 59-year-old female with history of recurrent diverticulitis, coronary artery disease status post stent placement, History of multiple sclerosis, another pelvis noted below presenting with abdominal pain. In summary, patient found to have recurrence of acute sigmoid diverticulitis with colonic obstruction, initially managed conservatively with bowel rest, IV antibiotics and IV fluids. However patient was not progressing, still without bowel movement or flatus. GI performed flex sig with decompression, however KUB showed persistent small bowel distention. Patient now scheduled for sigmoid resection on , January 10, 2020. N.p.o. status, TPN via PICC line RECURRENT ACUTE SIGMOID DIVERTICULITIS COLONIC OBSTRUCTION CT scan abdomen pelvis notable moderate colonic diverticulosis with evidence of acute sigmoid diverticulitis. No intraperitoneal free air is identified and there is no organized fluid collection to suggest abscess. The upstream colon is mildly distended and fluid-filled. This could represent a mild reactive ileus or possibly mild colonic obstruction secondary to inflammation/edema of the sigmoid. General surgery consulted, recommended conservative management Was placed on IV Zosyn and IV fluids, bowel rest Unfortunately, patient's abdominal pain and nausea persisted, no flatus or bowel movement after a few days of observation 01/04/[address] abdomen: Progression of colonic distention, possible colonic mass 01/05/2020: GI service consulted, status post flex endoscopy with decompression; s/p Flex Sig 01/04: Diverticular sigmoid stricture. Biopsied. Decompression tube placed. 01/06/2020 KUB: 1. Enteric and rectal tube positioning as above. 2. Persistent large and small bowel distention, mildly improved from comparison. General surgery service recommending sigmoid resection on , January 10, 2020 TPN via PICC line started Continue n.p.o., IV fluids, PRN analgesics Continue IV Zosyn plus Flagyl, Miralax TID per GI service Hold heparin Tuesday night in preparation for surgery the next day PAROXYSMAL ATRIAL FIBRILLATION New-onset, developed during admission Likely secondary to pain, underlying infection Cardiology service consulted Amiodarone drip started Usual metoprolol XL 25 mg p.o. discontinued Continue aspirin per cardiology service, okay with general surgery Mostly in sinus rhythm, intermittently develops episodes of atrial fibrillation Monitor electrolytes CORONARY ARTERY DISEASE no cardiac symptoms General surgery recommending to hold Plavix in preparation for surgery on , okay to hold Plavix per cardiology General surgery okay to continue aspirin Usual metoprolol XL on hold as patient now transitioned to amiodarone drip for atrial fibrillation HLD (hyperlipidemia): continue statin Multiple sclerosis: stable monitor Tobacco use disorder: 1 pack/week x 40 years counselling done Patient declined nicotine patch DVT prophylaxis: Heparin SC q8h, ok with GI, monitor for rectal bleed Disposition Anticipate discharge to home when medically stable Follow-up with PCP Follow-up with general surgery and GI 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 plan of care discussed with patient in detail and at length all questions were answered she is understanding, agreeable, comfortable with the plan of care Admission and Anticipated Discharge Date Admission Date: January 01, 2020 Subjective Follow-up for acute sigmoid diverticulitis, colonic obstruction, paroxysmal atrial fibrillation Seen resting in bed, comfortable, no distress, sitting up States she feels okay overall Minimal nausea, left lower quadrant pain well controlled, no fevers or chills No flatus or bowel movements so far Denies chest pain, palpitations, dizziness No other symptoms Review of Systems Review of Systems: All systems reviewed & are unremarkable except as noted in HPI & below Physical Exam Physical Exam: General- oriented x 3, not in distress, speaks in sentences with no effort or accessory muscle use Eyes- anicteric Nose-NGT in place, draining brown fluid Neck- no JVD Lungs- clear breath sounds bilaterally, no wheezing bilaterally Heart- normal rate, regular rhythm; no murmurs Abdomen-hypoactive bowel sounds, nondistended, soft, mild left lower quadrant tenderness Extremities- no pretibial edema, no calf tenderness Neuro- alert, oriented x 3; no gross focal neurologic deficits Skin- warm & dry Results & Data Results & Data ([facility]) Vital Signs (Past 12 Hours) Vital Signs Temp Pulse Pulse Resp BP BP Pulse Ox 01/08/20 15:17 36.9 C 96 H 21 133/78 94 01/08/20 11:41 36.8 C 96 H 16 108/74 99 01/08/20 10:50 93 H 01/08/20 07:13 36.7 C 117 H 16 118/81 96 01/08/20 07:00 55 L Laboratory Results Laboratory Results - last 24 hr 01/07/20 01/07/20 01/08/20 18:36 22:31 00:07 Sodium Potassium Chloride Carbon Dioxide Anion Gap BUN Creatinine Est Cr Clr Drug Dosing Est GFR ( Amer) Est GFR (Non-Af Amer) BUN/Creatinine Ratio Glucose POC Glucose 94 125 H Calcium Phosphorus Magnesium Troponin I < 0.015 Triglycerides 01/08/20 01/08/20 01/08/20 05:59 07:33 11:08 Sodium 141 Potassium 3.5 D Chloride 105 Carbon Dioxide 29 Anion Gap 7.0 BUN 8 Creatinine 0.82 Est Cr Clr Drug Dosing 91.5 Est GFR ( Amer) 90.1 Est GFR (Non-Af Amer) 77.8 BUN/Creatinine Ratio 10.2 Glucose 104 H POC Glucose 104 H Calcium 8.4 L Phosphorus 3.1 Magnesium 2.3 Troponin I < 0.015 Triglycerides 143 01/08/20 01/08/20 12:09 16:12 Sodium Potassium Chloride Carbon Dioxide Anion Gap BUN Creatinine Est Cr Clr Drug Dosing Est GFR ( Amer) Est GFR (Non-Af Amer) BUN/Creatinine Ratio Glucose POC Glucose 138 H 108 H Calcium Phosphorus Magnesium Troponin I Triglycerides
[2020-01-08] MEDS: ATORVASTATIN 40 MG TAB PO SCH (20:42)
[2020-01-09] MEDS: AMIODARONE / D5W 360 MG/200 ML BAG IV SCH ×3 (00:02→23:30)
[2020-01-09] MEDS: METOPROLOL TARTRATE 1 MG/ML VIAL IV SCH ×5 (04:39→23:31)
[2020-01-09] MEDS: HEPARIN SOD 5,000 UNIT/0.5 ML VIAL SQ SCH ×2 (05:30→20:59)
--- NOTE | 2020-01-09 06:47 | Hospitalist Progress Note ---
Date of Service January 09, 2020 Assessment & Plan (1) Acute diverticulitis of intestine: Picked up by me today, case reviewed, Patient seen, doing well. 59-year-old female with history of recurrent diverticulitis, coronary artery disease status post stent placement, History of multiple sclerosis, another pelvis noted below presenting with abdominal pain. In summary, patient found to have recurrence of acute sigmoid diverticulitis with colonic obstruction, initially managed conservatively with bowel rest, IV antibiotics and IV fluids. However patient was not progressing, still without bowel movement or flatus. GI performed flex sig with decompression, however KUB showed persistent small bowel distention. Patient now scheduled for sigmoid resection on , January 10, 2020. N.p.o. status, TPN via PICC line, NGT in place RECURRENT ACUTE SIGMOID DIVERTICULITIS COLONIC OBSTRUCTION CT scan abdomen pelvis notable moderate colonic diverticulosis with evidence of acute sigmoid diverticulitis. No intraperitoneal free air is identified and there is no organized fluid collection to suggest abscess. The upstream colon is mildly distended and fluid-filled. This could represent a mild reactive ileus or possibly mild colonic obstruction secondary to inflammation/edema of the sigmoid. General surgery consulted, recommended conservative management Was placed on IV Zosyn and IV fluids, bowel rest Unfortunately, patient's abdominal pain and nausea persisted, no flatus or bowel movement after a few days of observation 01/04/[address] abdomen: Progression of colonic distention, possible colonic mass 01/05/2020: GI service consulted, status post flex endoscopy with decompression; s/p Flex Sig 01/04: Diverticular sigmoid stricture. Biopsied. Decompression tube placed. 01/06/2020 KUB: 1. Enteric and rectal tube positioning as above. 2. Persistent large and small bowel distention, mildly improved from comparison. General surgery service recommending sigmoid resection on , January 10, 2020 TPN via PICC line started Continue n.p.o., IV fluids, PRN analgesics Continue IV Zosyn plus Flagyl, Miralax TID per GI service Hold heparin Tuesday night in preparation for surgery the next day PAROXYSMAL ATRIAL FIBRILLATION New-onset, developed during admission Likely secondary to pain, underlying infection Cardiology on case Amiodarone drip started Usual metoprolol XL 25 mg p.o. discontinued Continue aspirin per cardiology service, okay with general surgery Mostly in sinus rhythm, intermittently develops episodes of atrial fibrillation Monitor electrolytes CORONARY ARTERY DISEASE no cardiac symptoms General surgery recommending to hold Plavix in preparation for surgery on , okay to hold Plavix per cardiology General surgery okay to continue aspirin Usual metoprolol XL on hold as patient now transitioned to amiodarone drip for atrial fibrillation HLD (hyperlipidemia): continue statin Multiple sclerosis: stable monitor Tobacco use disorder: 1 pack/week x 40 years counselling done Patient declined nicotine patch DVT prophylaxis: Heparin SC q12h Disposition Anticipate discharge to home when medically stable Follow-up with PCP Follow-up with general surgery and GI Follow-up with deputy sheriff/investigator Labs Checked ROS-No Headache, No Visual Changes, No Nausea, No Vomiting, No Fever, No Chills, No Neck Pain or Stiffness, No Chest Pain, No Palpitations, No SOB, No ESPINOZA, No Cough, No Sputum, No Wheezing, + Abdominal Pain, No Diarrhea, No Hematemesis, No Hemoptysis, No Unexpected Weight Loss, No Flank pain, No Melena, No Hematochezia, No Frequency, No Urgency, No Burning, No Hematuria, No Rashes, No Diaphoresis. Appetite is Normal Physical Exam Gen-AAO x 3, NAD, Afebrile Head-NCAT, EOMI, PERRLA, Anicteric Sclera, No Posterior Pharyngeal Erythema Neck-Supple, No JVD, No Thyromegaly, No Masses, No LAD, No Bruits Lungs-Clear to Auscultation Bilaterally, No Rales, No Rhonchi, No Wheezing, No Crepitus Chest-No S4, +S1, +S2, No S3, No Murmurs, No Rubs, No Gallops, No Ectopy Abdomen-Soft, Bowel Sounds Present, Tender, Non Distended, No Hepatomegaly, No Splenomegaly, No Palpable Masses, No Rebound, No Rigidity, No Guarding, +NGT, +TPN Musculoskeletal-Full Range of Motion Bilaterally, No CVAT Extremities-No Cyanosis, No Clubbing, No Edema Nuero-Cranial Nerves II-XII grossly intact, Motor WNL, DTRs WNL, Strength WNL, Non Focal Psych-Normal Mood Admission and Anticipated Discharge Date Admission Date: January 01, 2020 Anticipated date of discharge: 01/14/20 Results & Data Results & Data ([facility]) Vital Signs (Past 12 Hours) Vital Signs Temp Pulse Pulse Resp BP Pulse Ox 01/09/20 04:39 48 L 01/09/20 03:44 36.8 C 71 16 114/86 94 01/09/20 00:00 36.8 C 112 H 16 129/89 94 01/08/20 19:45 36.7 C 88 21 122/81 92
[2020-01-09 06:57] LABS: BUN Creatinine Ratio 10.7 (10-20); Calcium 7.8 mg/dl (8.5-10.1); Creatinine Clr Calc Pharmacy 102.9 ml/min; Est GFR (African American) 103.8; Est GFR (Non-African American) 89.5; Magnesium 2.4 mg/dl (1.8-2.4)
[2020-01-09 06:58] LABS: Phosphorus 3.2 mg/dl (2.5-4.9)
--- NOTE | 2020-01-09 07:56 | Surgery Progress Note ---
Date of Service January 09, 2020 Assessment & Plan (1) Colon obstruction: Long discussion with the patient today regarding our plan of therapy and I recommended to proceed laparoscopic assisted colon resection possible open possible colostomy possible ileostomy and she agreeable to proceed with that permit was signed We will DC the NG tube keep her n.p.o. except water sips and ice chips we will start her on oral antibiotic because of bowel prep today I cannot give her any laxative Risk and complication of the procedure was explained to her and she would like to proceed accordingly The patient had a Lamas test done on according to protocol 15 which was negative we will check with anesthesia to see if they needed repeated before surgery Present on Admission?: Yes Admission and Anticipated Discharge Date Admission Date: January 01, 2020 Subjective Lara feels fine she had very little discomfort in her abdomen the NG lasha inage is virtually nil she continues to pass significant amount of gas per rectum still has the rectal tube in place Physical Exam Physical Exam: Resting comfortably in bed without complaints The NG virtually no drainage and discussed with the nurse had hardly any drainage overnight The abdomen is soft no distention no tenderness no guarding Results & Data ([facility]) Vital Signs (Past 12 Hours) Vital Signs Temp Pulse Pulse Resp BP BP Pulse Ox 01/09/20 06:58 36.7 C 74 16 114/78 96 01/09/20 04:39 48 L 01/09/20 03:44 36.8 C 71 16 114/86 94 01/09/20 00:00 36.8 C 112 H 16 129/89 94 I reviewed the KUB from this morning and shows that the gas is down to the descending colon still has some small bowel distention but less PG Care Time/CCT Total # of Minutes Spent Total Time Spent with Patient: Total time spent is greater than 50% in coordination of care (as documented) at patient's floor/unit and/or counseling patient: Coding Level of Care Code 06760 Subseq Hosp Care Lvl 3 Diagnoses Colon obstruction K56.609
--- NOTE | 2020-01-09 08:44 | XRay Report ---
KUB CLINICAL HISTORY: Follow up bowel obstruction. COMPARISON STUDY: CT of the abdomen and pelvis January 05, 2020. KUB January 08, 2020. FINDINGS: Tip of nasogastric tube is within the proximal body of the stomach. Rectal tube is unchange d in position within the proximal descending colon. Mild small and large bowel dilatation is similar to prior exam. Although sensitivity is diminished on this unenhanced exam, there is no evidence for f ree air. Left a opacity favors atelectasis. IMPRESSION: 1. No significant change in mild small and large bowel dilatation. 2. No change in position of the nasogastric and rectal tubes. ACT 112: Negative or not required by law. Electronically signed by: Klever Cameron M.D. 01/09/2020 8:43 AM
[2020-01-09] MEDS: PIPERACILLIN/TAZOBACTAM 3.375 GM in DEXTROSE 5% 100 ML IV SCH ×3 (08:58→23:31)
[2020-01-09] MEDS: metroNIDAZOLE 500 MG/100 ML BAG IV SCH ×3 (08:58→23:33)
[2020-01-09] MEDS: PANTOprazole 40 MG in SYRINGE 0 ML IV SCH ×2 (08:59→20:49)
[2020-01-09] MEDS: ASPIRIN 81 MG ECTAB PO SCH (08:59)
[2020-01-09] MEDS: POLYETHYLENE (MIRALAX) 17 GM PACK PO SCH ×3 (09:00→20:49)
--- NOTE | 2020-01-09 10:51 | Pharmacy Report ---
PHA: Parenteral Nutrition Con - Date of Service January 09, 2020 - Scope Pharmacy was consulted on 01/07/20 to manage parenteral nutrition orders for this patient. - Subjective The patient is currently on day 3 of parenteral nutrition for BOWEL OBSTRUCTION SECONDARY TO SIGMOID COLON STRICTURE / DIVERTICULITIS. - Objective Height: 5 ft 8 in Weight: 103 kg Diet: NPO Vascular Access:: PICC line (confirmed with patient's RN and IV Team) Intake & Output (24hrs):: Intake & Output 01/07/20 01/08/20 01/09/20 01/10/20 06:59 06:59 06:59 06:59 Intake Total 3868.833 / 3868.833 2491.482 / 2491.482 3947.068 / 3947.068 221.353 / 221.353 Output Total 3600 / 3600 3175 / 3175 3500 / 3500 Balance 268.833 / 268.833 -683.518 / -683.518 447.068 / 447.068 221.353 / 221.353 Weight 105.9 kg 102.8 kg 103 kg Additional Fluid Losses/Gains:: 300cc from NGT output last 24 hrs 3150cc UOP last 24 hrs Laboratory Data (Last 24 Hr):: 01/09/20 05:44 Sodium 142 Potassium 4.0 Chloride 110 H Carbon Dioxide 27 BUN 8 Creatinine 0.73 Glucose 101 H Calcium 7.8 L Phosphorus 3.2 Magnesium 2.4 Recent Pertinent Medications:: Amiodarone gtt @0.5mg/min running (source of dextrose) Zosyn (source of dextrose) Metronidazole Nutrition Assessment:: Please refer to the Notes section of the EMR for the most recent banquet food server note. - Assessment Patient continues to tolerate parenteral nutrition well at this time. Confirmed that patient has PICC line in correct central position this AM. Thus will increase macronutrients to goal with next bag. Electrolytes reviewed this AM, mild hyperchloremia present, thus will decrease chloride salts. Of note, NGT being removed today and will lessen Cl losses. No e-lyte abnormalities requiring supplementation. Patient scheduled for OR tomorrow for laparoscopic assisted colon resection possible open possible colostomy possible ileostomy Hospitalist's note reviewed from this AM and per PE: no JVD, lungs CTA, no edema. SCr stable and UOP >0.5cc/kg/hr. Cumulative I/O balance + 16.7L, however only slightly + last 24 hrs. No diuresis administered yesterday and thus far today no diuresis ordered. Will continue to provide ~100cc/hr fluids from TPN + other continuous infusion meds. - Plan For day 3 of PN administration, the following will be ordered: Macronutrients Amino acids 125 grams/day Dextrose 250 grams/day Lipids 50 grams/day Micronutrients Combined electrolytes 40 mL - contains 35 mEq Na, 20 meq K, 4.5 mEq Ca, 5 mEq Mg, 35 mEq Cl, 29.5 mEq acetate per 20 mL Sodium phosphate 0 MMol Sodium chloride 0 mEq Sodium acetate 30 mEq Potassium phosphate 27 mMol Potassium chloride 0 mEq Potassium acetate 40 mEq Magnesium sulfate 0 mEq Calcium gluconate 0 mEq Multivitamins 10 mL Trace Elements 1 mL Additional additives: Thiamine 100mg, Folic acid 1mg Total volume 1992 mL to be infused over 24 hrs will provide 1850 kcal/day Labs, as indicated, will be ordered per protocol Pharmacy will continue to follow and adjust parenteral nutrition orders on a daily basis. Thank you for allowing us to participate in the care of this patient.
--- NOTE | 2020-01-09 11:11 | Cardiology Progress Note ---
Date of Service January 09, 2020 Assessment & Plan (1) Paroxysmal atrial fibrillation: 2. Coronary artery disease post prior IA with FITZ to circumflex 03/2018 3. Bowel obstruction secondary to colonic stricture/diverticulitis Continues to have periods of asymptomatic atrial fibrillation with RVR. Heart rates better controlled overnight With intermittent atrial fibrillation now for the last 3+ days recommend at least short-term anticoagulation Continue amiodarone 0.5 mg/min Continued schedule metoprolol. Please give unless prolonged heart rates in the low 40s. With plan for surgery tomorrow we will hold off on starting anticoagulation currently. Plan to start therapeutic Lovenox postop when safe from a surgical standpoint. Long-term transition to Eliquis when able to tolerate p.o. meds Long-term if on anticoagulation will discontinue clopidogrel We will follow Admission and Anticipated Discharge Date Admission Date: January 01, 2020 Subjective Feeling better today. Less abdominal pain. NG tube removed. Surgery planned for tomorrow Telemetry reviewedintermittent atrial fibrillation overnight up to the 110s. Review of Systems Review of Systems: All systems reviewed & are unremarkable except as noted in HPI & below Physical Exam Physical Exam: General: Comfortable, sitting up in chair, no acute distress HEENT: Sclerae anicteric Lungs: Clear to auscultation bilaterally Cardiac: Regular with occasional premature beats, no murmurs Abdomen: Soft, diffuse tenderness Extremities: Warm, well perfused, no edema. 2+ radial pulses Skin: No rashes or lesions. Neuro: Nonfocal Psych: Alert orient x3, normal affect and mood Results & Data ([facility]) Vital Signs (Past 12 Hours) Vital Signs Temp Pulse Pulse Resp BP BP Pulse Ox 01/09/20 10:37 90 01/09/20 06:58 98.1 F 74 16 114/78 96 01/09/20 04:39 48 L 01/09/20 03:44 98.2 F 71 16 114/86 94 01/09/20 00:00 98.2 F 112 H 16 129/89 94 PG Care Time/CCT Total # of Minutes Spent Total Time Spent with Patient: Total time spent is greater than 50% in coordination of care (as documented) at patient's floor/unit and/or counseling patient: Coding Level of Care Code 31740 Subseq Hosp Care Lvl 3 Diagnoses Paroxysmal atrial fibrillation I48.0
[2020-01-09] MEDS: HYDROmorphone INJ 1 MG/ML SYRINGE IV PRN ×2 (11:31→16:40)
--- NOTE | 2020-01-09 12:01 | Electrocardiogram Report ---
Test Reason : Blood Pressure : / mmHG Vent. Rate : 123 BPM Atrial Rate : 277 BPM P-R Int : 000 ms QRS Dur : 092 ms QT Int : 348 ms P-R-T Axes : 000 074 034 degrees QTc Int : 498 ms Atrial fibrillation with rapid ventricular response Abnormal ECG When compared with ECG of 06-JAN-2020 07:16, Atrial fibrillation has replaced Sinus rhythm Vent. rate has increased BY 44 BPM Confirmed by Josef Mayberry ([id number]) on 01/09/2020 12:00:48 PM Referred By: REFERRED SELF Confirmed By:Josef Mayberry
[2020-01-09] MEDS: NEOMYCIN SULFATE 500 MG TAB PO SCH ×3 (14:10→20:52)
[2020-01-09] MEDS ORDERED: TPN IV SCH (16:00)
[2020-01-09] MEDS ORDERED: DEXTROSE 10% 1,000 ML IV PRN (16:00)
[2020-01-09] MEDS ORDERED: CENTRAL PN IV SCH (16:00)
[2020-01-09] MEDS: ERYTHROMYCIN 250 MG TABEC PO SCH ×3 (16:34→20:52)
[2020-01-09] MEDS: ATORVASTATIN 40 MG TAB PO SCH (20:49)
[2020-01-09] MEDS: LORazepam 0.5 MG/1 ML VIAL IV PRN (20:58)
[2020-01-10] MEDS: METOPROLOL TARTRATE 1 MG/ML VIAL IV SCH ×4 (03:49→21:55)
[2020-01-10] MEDS: HYDROmorphone INJ 1 MG/ML SYRINGE IV PRN (03:55)
[2020-01-10] MEDS: PROMETHAZINE HCL 12.5 MG in SODIUM CHLORIDE 0.9% 50 ML IV PRN (04:12)
[2020-01-10 05:59] LABS: Hemoglobin 15.9 g/dL (12.0-16.0); Mean Corpuscular Hemoglobin 30.9 pg (25-34); Mean Corpuscular Hgb Conc 33.1 g/dL (32-36); Mean Corpuscular Volume 93.2 fL (80-100); Mean Platelet Volume 10.5 fL (7.4-10.4); Platelet Count 312 K/uL (130-400); RDW Coefficient of Variation 14.4 % (11.5-14.5); RDW Standard Deviation 49.3 fL (36.4-46.3); Red Blood Count 5.15 M/uL (4.2-5.4); White Blood Count 9.14 K/uL (4.8-10.8)
[2020-01-10 06:11] LABS: INR 1.1 (0.9-1.1); Prothrombin Time 11.4 Seconds (9.0-12.0)
[2020-01-10 06:36] LABS: BUN Creatinine Ratio 14.6 (10-20); Calcium 8.8 mg/dl (8.5-10.1); Creatinine Clr Calc Pharmacy 86.3 ml/min; Est GFR (African American) 83.9; Est GFR (Non-African American) 72.4; Magnesium 2.3 mg/dl (1.8-2.4); Phosphorus 3.2 mg/dl (2.5-4.9); Potassium 4.6 mmol/L (3.5-5.1)
--- NOTE | 2020-01-10 06:38 | History & Physical Bridge Note ---
Date of Service January 10, 2020 History & Physical Bridge Note I have examined the patient, reviewed the History & Physical and in the interval since the performance of the History & Physical I have noted the following changes of clinical significance: no changes noted States that last evening she had a liquid bowel movement after rectal tube came out The NG tube was removed yesterday and the patient is experiencing some abdominal discomfort and nausea last evening Abdominal exam is virtually unchanged from yesterday We will proceed with surgery this morning certainly 1 could delay the surgery and try to put her on watery bowel prep regime but I am concerned that she was obstructed and I am not sure that that is completely resolved at this time therefore I would like to proceed patient is agreeable to our plans
[2020-01-10] MEDS ORDERED: ONDANSETRON INJ 2 MG/ML 2 ML VIAL IV PRN ×2 (06:45→16:11)
[2020-01-10] MEDS ORDERED: ATROPINE SULFATE 0.1 MG/ML 10ML SYR IV PRN (06:45)
[2020-01-10] MEDS ORDERED: PROMETHAZINE HCL 12.5 MG in SODIUM CHLORIDE 0.9% 50 ML IV PRN (06:45)
[2020-01-10] MEDS ORDERED: ePHEDrine sulfate 50 MG/ML AMP IV PRN (06:45)
--- NOTE | 2020-01-10 06:45 | Anesthesiology Consultation ---
Date of Service January 10, 2020 Assessment & Plan ASA ASA3 Proposed Anesthesia Anesthesia Type: General Risk / Benefits Reviewed With: PT / POA / Parent / Guardian, Accepts Plan and Informed Consent Obtained History Surgery Operation Date: 01/05/20 13:30 Proposed Procedures p Colonoscopy with Decompression - Trisha Vigil MD Operation Date: 01/10/20 07:00 Proposed Procedures p Laparoscopic Assisted Colon Resection, Possible Colostomy, Possible Ileostomy - Nelson Coreas MD Height/Weight Height: 5 ft 8 in Weight: 103 kg Allergies Allergy/AdvReac Type Severity Reaction Status Date / Time amoxicillin AdvReac Intermediate YEAST Verified 01/01/20 19:24 INFECTION Medications Home Medications Medication Instructions Recorded Confirmed Last Taken omeprazole 20 mg PO HS 04/10/18 01/01/20 12/31/19 metoprolol succinate 25 mg 25 mg PO DAILY #90 tab 05/09/19 01/01/20 12/31/19 tablet,extended release 24 hr aspirin 81 mg tablet,delayed 81 mg PO DAILY #90 tab 06/01/19 01/01/20 12/31/19 release clopidogrel 75 mg tablet 75 mg PO DAILY #90 tab 11/26/19 01/01/20 12/31/19 atorvastatin 80 mg PO DAILY 01/01/20 01/01/20 12/31/19 Active Medications Generic Name Dose Route Start Last Admin Trade Name Freq PRN Reason Stop Dose Admin Aspirin 81 mg 01/07/20 17:00 01/09/20 08:59 Aspirin 81 Mg Ectab PO 02/06/20 16:59 81 mg DAILY LAMONT Administration Atorvastatin Calcium 80 mg 01/01/20 21:30 01/09/20 20:49 Lipitor PO 01/31/20 21:29 80 mg HS LAMONT Administration Erythromycin 1,000 mg 01/09/20 14:00 01/09/20 20:52 Erythromycin 250 Mg Tabec PO 01/10/20 13:59 1,000 mg 1400,1600,2200 LAMONT Administration Heparin Sodium (Beef Lung) 5 ml 01/08/20 02:25 01/08/20 07:36 Heparin 10 Unit/Ml 5 Ml Flush FLUSH 02/07/20 02:24 5 ml PRN PRN Administration Flush Heparin Sodium (Porcine) 5,000 units 01/09/20 21:00 01/09/20 20:59 Heparin Sod 5,000 Unit/0.5 Ml Vial SQ 01/10/20 20:59 5,000 units Q12 LAMONT Administration Hydromorphone HCl 1 mg 01/03/20 10:20 01/10/20 03:55 Hydromorphone Inj 1 Mg/Ml Syringe IV 01/17/20 10:19 1 mg Q3H PRN Administration Pain Piperacillin Sod/Tazobactam 115 mls @ 28.75 mls/hr 01/02/20 00:00 01/10/20 03:47 Sod 3.375 gm/ Dextrose IV 01/12/20 00:00 Infused Q8H LAMONT Infusion Protocol Promethazine HCl 12.5 mg/ 50.5 mls @ 202 mls/hr 01/01/20 21:04 01/10/20 04:27 Sodium Chloride IV 01/31/20 21:03 Infused Q6H PRN Infusion Nausea And Vomiting Lorazepam 0.5 mg in 1 mls @ 1 mls/min 01/04/20 22:10 01/09/20 20:58 Ativan IV 02/03/20 22:09 1 mls/min Q4H PRN Administration Anxiety/Agitation Metronidazole 500 mg in 100 mls @ 100 mls/hr 01/05/20 16:00 01/10/20 00:33 Flagyl IV 01/15/20 15:59 Infused Q8H L[facility]ONT Infusion Pantoprazole Sodium 40 mg/ 10 mls @ 5 mls/min 01/05/20 21:00 01/09/20 20:49 Syringe IV 02/04/20 20:59 5 mls/min BID LAMONT Administration Sodium Chloride 1,000 mls @ 20 mls/hr 01/07/20 16:00 01/08/20 00:35 Nss 1000ml IV 02/06/20 15:59 Not Given .Q24H LAMONT Amiodarone HCl/Dextrose 360 mg in 200 mls @ 16.7 mls/hr 01/07/20 22:25 01/09/20 23:30 Nexterone / D5w IV 02/06/20 22:24 16.7 mls/hr .[id number] LAMONT Administration Nutrition (Parenteral) 1,992 1,992 mls @ 83 mls/hr 01/09/20 16:00 01/09/20 16:25 ml/ TPN BAG IV 01/10/20 15:59 83 mls/hr .Q24H LAMONT Administration Protocol Metoprolol Succinate 12.5 mg 01/05/20 03:45 01/05/20 22:15 Metoprolol Succ 25mg Ext Rel Tab PO 02/04/20 03:44 Not Given BID LAMONT Metoprolol Tartrate 2.5 mg 01/05/20 22:30 01/10/20 03:49 Metoprolol Tartrate 1 Mg/Ml Vial IV 02/04/20 22:29 2.5 mg Q6H LAMONT Administration Neomycin Sulfate 1,000 mg 01/09/20 14:00 01/09/20 20:52 Neomycin Sulfate 500 Mg Tab PO 01/10/20 13:59 1,000 mg 1400,1600,2200 LAMONT Administration Polyethylene Glycol 17 gm 01/06/20 21:00 01/09/20 20:49 Polyethylene (Miralax) 17 Gm Pack PO 02/05/20 20:59 17 gm TID LAMONT Administration NPO Date Last Intake of Fluids: 01/05/20 Time Last Intake of Fluids: 09:00 Date Last Intake of Solids: 12/29/19 Time Last Intake of Solids: 20:00 Past Medical History Medical History Coronary artery disease HLD (hyperlipidemia) Multiple sclerosis ST elevation myocardial infarction (STEMI) of inferior wall Tibial plateau fracture, left (05/01/14) Tobacco use disorder Exercise / Class Metabolic Activity II 4-5 Yardwork/Stairs/Walk up hill Past Family History Family History Sister Bipolar disorder Mother Stroke Father Coronary heart disease Myocardial infarction Other Family history non-contributory Past Surgical History Surgical History History of cardiac cath 1 FITZ to mid circumflex S/P hammer toe correction "10/2017" S/P hysterectomy S/P ORIF (open reduction internal fixation) fracture "Of left tibial plateau fracture in 2013" Status post angioplasty with stent Past Anesthesia History No Hx of Anesthesia Complications and No Family Hx of Anesthesia Complications History of PONV No Hx of PONV and No Hx of Motion Sickness Social History Smoking Status: Current every day smoker tobacco type: cigarettes Smoking cigarettes per day: 1-3 Do You Dip or Chew Tobacco: No Hx Alcohol Use: No Alcohol type: beer, wine and hard liquor alcohol intake frequency: holidays/special occasions only Hx Substance Use: No Review of Systems denies fever/cough/ colds/ chest pain/ SOB/ GARRISON Constitutional: no fever and no chills Respiratory: no cough and no dyspnea denies GARRISON Cardiovascular: no chest pain and no dyspnea on exertion Physical Exam Vital Signs Last Vital Signs Temp 36.8 C 01/10/20 03:31 Pulse 87 01/10/20 03:49 Resp 18 01/10/20 03:31 BP 108/65 01/10/20 03:49 Pulse Ox 93 01/10/20 03:31 ENMT Mouth: no TMJ abnormality and no dentition abnormality Thyromental Distance: > or= 3.5 Finger Breadths Mallampati Class: II Neck neck extension not limited Respiratory normal respiratory effort; no respiratory distress Auscultation: lungs clear to auscultation bilaterally Cardiovascular Rate/Rhythm: regular rate and regular rhythm Neurologic moves all extremities Psychiatric Orientation: alert and oriented x 3 Testing Laboratory Results 01/10/20 05:37 01/10/20 05:37 PT 11.4 Seconds (9.0-12.0) 01/10/20 05:37 INR 1.1 (0.9-1.1) 01/10/20 05:37 Urine Color Yellow 01/01/20 23:35 Urine Appearance Clear (Clear) 01/01/20 23:35 Urine pH 5.0 (4.5-7.5) 01/01/20 23:35 Ur Specific [place] 1.045 (1.000-1.030) H 01/01/20 23:35 Urine Protein Negative (Negative) 01/01/20 23:35 Urine Glucose (UA) Negative (Negative) 01/01/20 23:35 Urine Ketones 1+ (Negative) H 01/01/20 23:35 Urine Nitrite Negative (Negative) 01/01/20 23:35 Ur Leukocyte Esterase Negative (Negative) 01/01/20 23:35 Urine WBC (Auto) 1-5 /hpf (0-5) 01/01/20 23:35 Urine RBC (Auto) 0-4 /hpf (0-4) 01/01/20 23:35 U Hyaline Cast (Auto) 0 /lpf (0-5) 01/01/20 23:35 U Epithel Cells (Auto) 5-10 /lpf (0-5) H 01/01/20 23:35 Urine Bacteria (Auto) Negative (Negative) 01/01/20 23:35 Blood Type O Positive 01/09/20 17:41 Antibody Screen NEGATIVE 01/09/20 17:41 01/01/20 20:05 Aerobic Blood Culture - Final Blood No growth in Aerobic bottle after 5 days. Anaerobic Blood Culture - Final No growth in Anaerobic bottle after 5 days. 01/01/20 20:05 Aerobic Blood Culture - Final Blood No growth in Aerobic bottle after 5 days. Anaerobic Blood Culture - Final No growth in Anaerobic bottle after 5 days. 01/10/20 01/09/20 06:11 23:40 POC Glucose 108 H 99
[2020-01-10] MEDS ORDERED: fentaNYL citrate 100 MCG/2 ML VIAL ONE ×2 (06:47→10:27)
[2020-01-10] MEDS ORDERED: NEOSTIGMINE METHYLSULFATE 5 MG/5 ML SYR ONE (06:47)
[2020-01-10] MEDS ORDERED: LIDOCAINE HCL 2% 2 ML VIAL/AMP(20MG/ML) INFIL ONE (06:47)
[2020-01-10] MEDS ORDERED: DEXAMETHASONE SOD INJ 4 MG/ML VIAL ONE (06:47)
[2020-01-10] MEDS ORDERED: ONDANSETRON INJ 2 MG/ML 2 ML VIAL ONE (06:47)
[2020-01-10] MEDS ORDERED: PROPOFOL IV EMULSION 10 MG/ML 20 ML VIAL IV ONE (06:47)
[2020-01-10] MEDS ORDERED: GLYCOPYRROLATE 0.2 MG/ML VIAL ONE ×2 (06:47→13:21)
[2020-01-10] MEDS ORDERED: MIDAZOLAM HCL 1 MG/ML 2ML VIAL ONE (06:48)
--- NOTE | 2020-01-10 06:50 | Hospitalist Progress Note ---
Date of Service January 10, 2020 Assessment & Plan (1) Acute diverticulitis of intestine: Picked up by me today, case reviewed, Patient seen, doing well. 59-year-old female with history of recurrent diverticulitis, coronary artery disease status post stent placement, History of multiple sclerosis, another pelvis noted below presenting with abdominal pain. In summary, patient found to have recurrence of acute sigmoid diverticulitis with colonic obstruction, initially managed conservatively with bowel rest, IV antibiotics and IV fluids. However patient was not progressing, still without bowel movement or flatus. GI performed flex sig with decompression, however KUB showed persistent small bowel distention. Sigmoid resection today RECURRENT ACUTE SIGMOID DIVERTICULITIS COLONIC OBSTRUCTION CT scan abdomen pelvis notable moderate colonic diverticulosis with evidence of acute sigmoid diverticulitis. No intraperitoneal free air is identified and there is no organized fluid collection to suggest abscess. The upstream colon is mildly distended and fluid-filled. This could represent a mild reactive ileus or possibly mild colonic obstruction secondary to inflammation/edema of the sigmoid. General surgery consulted, recommended conservative management Was placed on IV Zosyn and IV fluids, bowel rest Unfortunately, patient's abdominal pain and nausea persisted, no flatus or bowel movement after a few days of observation 01/04/[address] abdomen: Progression of colonic distention, possible colonic mass 01/05/2020: GI service consulted, status post flex endoscopy with decompression; s/p Flex Sig 01/04: Diverticular sigmoid stricture. Biopsied. Decompression tube placed. 01/06/2020 KUB: 1. Enteric and rectal tube positioning as above. 2. Persistent large and small bowel distention, mildly improved from comparison. TPN via PICC line Continue IV Zosyn plus Flagyl, Miralax TID per GI service Heparin held PAROXYSMAL ATRIAL FIBRILLATION New-onset, developed during admission Likely secondary to pain, underlying infection Cardiology on case Amiodarone drip started Usual metoprolol XL 25 mg p.o. discontinued Continue aspirin per cardiology service, okay with general surgery Mostly in sinus rhythm, intermittently develops episodes of atrial fibrillation Monitor electrolytes CORONARY ARTERY DISEASE no cardiac symptoms Hold Plavix General surgery okay to continue aspirin Periop Metoprolol XL , Amiodarone drip for atrial fibrillation HLD (hyperlipidemia): continue statin periop Multiple sclerosis: stable monitor Tobacco use disorder: 1 pack/week x 40 years counselling done Patient declined nicotine patch DVT prophylaxis: Heparin SC q12h Disposition Anticipate discharge to home when medically stable Follow-up with PCP Follow-up with general surgery and GI 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 Appetite is Normal Physical Exam Gen-AAO x 3, NAD, Afebrile Head-NCAT, EOMI, PERRLA, Anicteric Sclera, No Posterior Pharyngeal Erythema Neck-Supple, No JVD, No Thyromegaly, No Masses, No LAD, No Bruits Lungs-Clear to Auscultation Bilaterally, No Rales, No Rhonchi, No Wheezing, No Crepitus Chest-No S4, +S1, +S2, No S3, No Murmurs, No Rubs, No Gallops, No Ectopy Abdomen-Soft, Bowel Sounds Present, Tender, Non Distended, No Hepatomegaly, No Splenomegaly, No Palpable Masses, No Rebound, No Rigidity, No Guarding, +NGT, +TPN Musculoskeletal-Full Range of Motion Bilaterally, No CVAT Extremities-No Cyanosis, No Clubbing, No Edema Nuero-Cranial Nerves II-XII grossly intact, Motor WNL, DTRs WNL, Strength WNL, Non Focal Psych-Normal Mood Admission and Anticipated Discharge Date Admission Date: January 01, 2020 Results & Data Results & Data ([facility]) Vital Signs (Past 12 Hours) Vital Signs Temp Pulse Pulse Resp BP BP Pulse Ox 01/10/20 03:49 87 108/65 01/10/20 03:31 36.8 C 88 18 108/65 93 01/10/20 00:00 36.8 C 82 16 125/84 96 01/09/20 23:31 82 125/84 01/09/20 19:21 36.8 C 66 18 131/72 95
[2020-01-10] MEDS ORDERED: BUPIVACAINE 0.5 % 5 MG/1 ML MPF 30ML VIAL ONE (06:57)
[2020-01-10] MEDS ORDERED: PHENYLEPHRINE 100MCG/ML 5ML SYR ONE (08:34)
[2020-01-10] MEDS ORDERED: SUCCINYLCHOLINE CHLORIDE 20 MG/ML 10 ML VIAL IV ONE (08:34)
[2020-01-10] MEDS ORDERED: ROCURONIUM BROMIDE 10 MG/ML 5 ML VIAL IV ONE ×8 (08:34→13:01)
[2020-01-10] MEDS ORDERED: HYDROmorphone INJ 2 MG/ML SYR/VIAL ONE (08:35)
--- NOTE | 2020-01-10 13:28 | Post Operative Brief Note ---
PG Immediate Post Op with CF Date of Surgery January 10, 2020 Pre & Post Diagnosis Operation Date: 01/05/20 13:30 Pre-Op Diagnosis: ACUTE SIGMOID DIVERTICULITIS Post-Op Diagnosis: ACUTE SIGMOID DIVERTICULITIS Operation Date: 01/10/20 07:00 Pre-Op Diagnosis: ACUTE SIGMOID DIVERTICULITIS Post-Op Diagnosis: ACUTE SIGMOID DIVERTICULITIS I identified the patient and participated in the time-out.: Yes Procedure Operation Date: 01/05/20 13:30 Actual Procedures p Colonoscopy with Decompression(Not Applicable) - Trisha Vigil MD Operation Date: 01/10/20 07:00 Actual Procedures p Laparoscopic Assisted Sigmoid Colon Resection; Left Salpingo-oopherectomy(Not Applicable) - Nelson Coreas MD Surgeon Nelson Coreas MD Rotary Bar Operator None Estimated Blood Loss 300 Findings Consistent with Post-Op Diagnosis Specimens Specimen Description: culture #1: Urine culture Permanent: A. Sigmoid colon. B. Left tube and ovary. Drains Shaka Drain (19F), Boyer Catheter and Chuckey Drain
--- NOTE | 2020-01-10 14:03 | Operative Report ---
PG Post Operative Report Pre & Post Diagnosis Operation Date: 01/05/20 13:30 Pre-Op Diagnosis: ACUTE SIGMOID DIVERTICULITIS Post-Op Diagnosis: ACUTE SIGMOID DIVERTICULITIS Operation Date: 01/10/20 07:00 Pre-Op Diagnosis: ACUTE SIGMOID DIVERTICULITIS Post-Op Diagnosis: ACUTE SIGMOID DIVERTICULITIS I identified the patient and participated in the time-out.: Yes Procedure Operation Date: 01/05/20 13:30 Actual Procedures p Colonoscopy with Decompression(Not Applicable) - Trisha Vigil MD Operation Date: 01/10/20 07:00 Actual Procedures p Laparoscopic Assisted Sigmoid Colon Resection; Left Salpingo-oopherectomy(Not Applicable) - Nelson Coreas MD The patient was brought into the operating theater general trach anesthesia Boyer catheter inserted patient was placed in lithotomy the abdomen and pelvis. Perineum was prepped Betadine solution properly draped a timeout was had patient was identified patient has been on antibiotics made a small incision supraumbilically an attempt to place a Veress needle but the Veress needle was not long enough to reach the fascia therefore we made a larger incision elevated the abdominal wall with Burns clamps then were able to place the Veress needle insufflated to about 13 5 mm trocar point of interest pectoralis major identified with the camera I was able to see that there were no adhesions to the anterior abdominal wall the small bowel appeared to be dilated and may be a change in the caliber distal small bowel therefore at this point I placed a 5 mm right flank port with preemptive local analgesic and will try to milked the small bowel to I thought the point of a transition but we did not find that there was one area that looked the bowel looked like it was possibly a little ischemic but I think it meant we compromised in the left upper quadrant in fact while time we are finished all the the viability of the all intestines went fine. We also localized at the transverse colon which was was possibly dilated and then we were met with significant fibrosis and adhesions to the left lateral wall in the pelvic area. We placed another 5 mm right lower quadrant port and another 5 mm port between the symphysis pubis in the umbilical area and started our dissection to the very distal sigmoid by freeing up very slightly the white line of Toldt which was hard to find and we dissected out strict adhesions from the sigmoid colon to the lateral wall including the ovary. We found a plane of dissection that we could free the ovary from the sigmoid colon mesentery. About the time we finished the ovary was pretty much suspended and I was afraid to leave it therefore we will take it out and by placing a clamp at the base with a ligated 2-0 silk. We identified the ureter and the prior to getting in the pelvic opening we placed 1/4 inch Milmay drain around it and I used the Endo suture used a Milmay drain to attach the ant abdominal wall to elevate the ovary with this as a guide we stayed medial to that intense market inflammatory tissue where we were able to see that we had most of the process that was significant diverticular stricture suspected right at the in the same area we had some oozing mostly was controlled with 5 mm clips and some electrocautery we then continued down towards the pelvic area at were able to see the top of the rectum and there was no really adhesions in that area most of the adhesions and scar tissue was in the distal sigmoid we had a mobilized the white line of Toldt more in the left gutter to the point that I waited enough mobility for resection and primary anastomosis. I elected at this point to make a small incision qasim roximately 3-1/2 inches long between the symphysis pubis and the umbilical area this was deep with her subcutaneous tissue infection had a significant amount of subcutaneous tissue until we got to the abdominal wall in the midline she had had a previous hysterectomy therefore we are scarred tissue in the midline identified [place] clamps were used elevated we entered the abdomen. We placed the Bookwalter retraction. We then with Eric we are able to elevate the mobilized distal descending colon sigmoid and bring it out towards the wound at distally we could feel the indurated area consistent with an area of stricture. We divided the mesentery to this area staying close to the bowel wall with right angle clamps and ligated with 2-0 and 3-0 silk sutures. Placed a line of resection of the sigmoid colon just the takeoff of the descending colon using a MATTHIEU stapler and distally we placed a right ankle intestinal clamp and what appeared to be a upper rectum distal sigmoid with cut into the and resected the specimen the lumen actually was quite tight consistent with a stricture which several this and his side table. We opened the lumen of the distal sigmoid rectal area and there was no real contents proximally oversewed the staple line on her sigmoid colon descending colon area with 3-0 silk sutures and my intent to there was a side to end anastomosis by hand oversewn we 03 3-0 silk sutures for posterior wall opened up the proximal to the suture line for approximately 2 cm and 1/2 to 3 cm we started anastomosis with inner layer 3-0 chromic suture at this point I noticed there was another diverticula more posterior to her line of resection therefore I took down the anastomosis and choked up on the distal sigmoid into the rectal area through there was no gross diverticula present we then continue with anastomosis using 3-0 silk outer layer 3-0 chromic interlayer from without tension and the lumen was quite patent also of note when we open the proximal bowel to do the anastomosis there was no fecal contents I was concerned about that because we really did not have any mechanical prep and there was very little contents. I felt the anastomosis was tension-free the viability was strong and the prep was fairly good therefore I did not do any colostomy or ileostomy is anticipated. From that incision I tried palpate the NG tube which is quite high and I was not able to palpated but anesthesia felt that it was significantly and in proper position Shaka drain was used to through a stab wound in the right lower quadrant placed on the core pelvic area attaching skin edge with 3-0 silk suture. 3-0 chromic is used for posterior peritoneum and closure and use #1 PDS continuous fashion starting one cephalad one caudad and tied in the middle subcutaneous tissue was closed with interrupted 2-0 Vicryl we placed a 5/8 of an inch Anastasia drain a deep in this wound that is stated was about 3-1/2 to 4 inches subcutaneous fat the Anastasia was tied distally approximate incision with 3-0 silk suture anca for skin edges anca were also used to close the 2 trocar incisions. Also of note prior to closing the abdomen we removed the Milmay drain that we had placed to elevate the ureter left side by cutting the suture and taken the Anastasia drain intact. Procedure was tolerated well by the patient estimated blood loss approximately 300 cc patient was taken recovery in good condition addendum Denis Sheffield was present throughout the procedure and helped with exposure retraction wound closure output with the anastomosis and laparoscopic Surgeon Nelson Coreas MD Horticultural Manager None Estimated Blood Loss 300 Findings Consistent with Post-Op Diagnosis Specimens colon and left SO Description of Procedure merda I attest to the content of the Intraoperative Record and any orders documented therein. Any exceptions are noted below.
[2020-01-10] MEDS: fentaNYL citrate 100 MCG/2 ML VIAL IV PRN ×2 (14:04→14:15)
--- NOTE | 2020-01-10 14:14 | Anesthesiology Progress Note ---
Date of Service January 10, 2020 Anesthesia Post Procedure Vital Signs Vital Signs: Temp Pulse Pulse Resp BP BP BP 01/10/20 14:11 91 H 13 149/93 H 01/10/20 14:00 92 H 13 150/89 H 01/10/20 13:50 91 H 15 154/106 H 01/10/20 13:44 36.3 C L 100 H 22 164/106 H 01/10/20 06:48 37 C 76 105/73 01/10/20 03:49 87 108/65 01/10/20 03:31 36.8 C 88 18 108/65 01/10/20 00:00 36.8 C 82 16 125/84 01/09/20 23:31 82 125/84 01/09/20 19:21 36.8 C 66 18 131/72 01/09/20 16:34 90 113/67 01/09/20 15:15 36.9 C 95 H 19 98/73 L Pulse Ox 01/10/20 14:11 99 01/10/20 14:00 99 01/10/20 13:50 97 01/10/20 13:44 96 01/10/20 06:48 97 01/10/20 03:49 01/10/20 03:31 93 01/10/20 00:00 96 01/09/20 23:31 01/09/20 19:21 95 01/09/20 16:34 01/09/20 15:15 95 Pain Intensity Abdomen: Pain Intensity: 5 Transfer of Care Handoff Completed per policy Notes Mental Status: alert / awake / arousable and participated in evaluation Patient Amnestic to Procedure: Yes Nausea / Vomiting: adequately controlled Pain: adequately controlled Airway Patency, RR, SpO2: stable & adequate BP & HR: stable & adequate Hydration State: stable & adequate Anesthetic Complications: no major complications apparent and Pt Satisfied with anesthetic care
[2020-01-10] MEDS: HYDROmorphone INJ 2 MG/ML SYR/VIAL IV PRN ×4 (14:27→15:01)
--- NOTE | 2020-01-10 14:31 | XRay Report ---
KUB HISTORY: Status post placement of an enteric tube NGT placement COMPARISON: KUB 01/09/2020 FINDINGS: Persistent small and large bowel dilation which is generally unchanged. Status post placeme nt of an enteric tube, distal tip terminating in the expected location of the mid gastric body. The r ectal tube appears to have been removed in the interval. Surgical clips project over the pelvis. Surg ical drainage catheter is also noted projecting over the mid pelvis. Likely postsurgical soft tissue swelling with deep tissue air projects over the left lower lateral abdominal wall. No renal calculi. No ureteral calculi. No pneumoperitoneum or pneumatosis. No fracture. IMPRESSION: 1. Distal tip of the enteric tube projects over the mid stomach. 2. Interval removal of the rectal tube. 3. Persistent dilated loops of large and small bowel. ACT 112: Negative or not required by law. The above report was generated using voice recognition software. It may contain grammatical, syntax o r spelling errors. Electronically signed by: Geroinmo Morin M.D. 01/10/2020 2:30 PM
[2020-01-10] MEDS ORDERED: METOPROLOL TARTRATE 1 MG/ML VIAL IV STA (14:38)
[2020-01-10] MEDS ORDERED: MEPERIDINE HCL 25 MG/ML CARP/VIAL IV STA (15:11)
[2020-01-10] MEDS ORDERED: MEPERIDINE HCL 25 MG/ML CARP/VIAL ONE (15:18)
[2020-01-10] MEDS ORDERED: CENTRAL PN IV SCH (16:00)
[2020-01-10] MEDS ORDERED: TPN IV SCH (16:00)
[2020-01-10] MEDS ORDERED: NALOXONE HCL 0.4 MG/1 ML VIAL/CARP IV PRN (16:11)
[2020-01-10] MEDS: LACTATED RINGER'S 1,000 ML IV SCH ×2 (16:15→21:55)
[2020-01-10] MEDS: metroNIDAZOLE 500 MG/100 ML BAG IV SCH ×2 (16:18→17:34)
[2020-01-10] MEDS: PIPERACILLIN/TAZOBACTAM 3.375 GM in DEXTROSE 5% 100 ML IV SCH ×2 (16:18→17:34)
[2020-01-10] MEDS: MORPHINE SULFATE PCA 30 MG/30 ML IV PRN (16:44)
[2020-01-10] MEDS: AMIODARONE / D5W 360 MG/200 ML BAG IV SCH ×2 (17:33→21:59)
[2020-01-10] MEDS: PANTOprazole 40 MG in SYRINGE 0 ML IV SCH ×2 (17:34→21:10)
[2020-01-10] MEDS: SODIUM CHLORIDE 0.9% 1000ML 1,000 ML IV SCH (17:35)
[2020-01-10] MEDS: ACETAMINOPHEN 1,000 MG/100 ML VIAL IV SCH (17:35)
[2020-01-10 18:50] LABS: Hematocrit (blood only) 38.8 % (37-47); Hemoglobin 12.5 g/dL (12.0-16.0); Immature Granulocytes # (auto) 0.05 K/uL (0.00-0.02); Immature Granulocytes % (auto) 0.3 %; Lymphocytes # (auto) 0.42 K/uL (1.2-3.4); Lymphocytes % (auto) 2.7 %; Mean Corpuscular Hemoglobin 30.4 pg (25-34); Mean Corpuscular Hgb Conc 32.2 g/dL (32-36); Mean Corpuscular Volume 94.4 fL (80-100); Mean Platelet Volume 10.8 fL (7.4-10.4); Monocytes # (auto) 1.01 K/uL (0.11-0.59); Monocytes % (auto) 6.4 %; Neutrophils % (auto) 90.6 %; Platelet Count 292 K/uL (130-400); RDW Coefficient of Variation 14.5 % (11.5-14.5); RDW Standard Deviation 50.2 fL (36.4-46.3); Red Blood Count 4.11 M/uL (4.2-5.4); White Blood Count 15.68 K/uL (4.8-10.8)
[2020-01-10] MEDS: HEPARIN SOD 5,000 UNIT/0.5 ML VIAL SQ SCH ×2 (21:10→23:24)
[2020-01-10] MEDS ORDERED: MoRPHine SULFATE 4 MG/ML 1 ML CARP\\VIAL IV PRN (21:28)
[2020-01-10] MEDS ORDERED: ACETAMINOPHEN 1000 MG/100 ML IV IV SCH (22:00)
[2020-01-10] MEDS: ASPIRIN 81 MG ECTAB PO SCH (23:24)
[2020-01-10] MEDS: POLYETHYLENE (MIRALAX) 17 GM PACK PO SCH ×2 (23:24→23:26)
[2020-01-11] MEDS: PIPERACILLIN/TAZOBACTAM 3.375 GM in DEXTROSE 5% 100 ML IV SCH ×4 (00:28→23:58)
[2020-01-11] MEDS: metroNIDAZOLE 500 MG/100 ML BAG IV SCH ×2 (00:29→08:44)
[2020-01-11] MEDS: ACETAMINOPHEN 1,000 MG/100 ML VIAL IV SCH ×3 (02:23→16:46)
[2020-01-11] MEDS: METOPROLOL TARTRATE 1 MG/ML VIAL IV SCH ×4 (04:30→22:16)
[2020-01-11] MEDS: HEPARIN SOD 5,000 UNIT/0.5 ML VIAL SQ SCH ×3 (06:09→22:16)
--- NOTE | 2020-01-11 06:58 | Hospitalist Progress Note ---
Date of Service January 11, 2020 Assessment & Plan (1) Acute diverticulitis of intestine: 59-year-old female with history of recurrent diverticulitis, coronary artery disease status post stent placement, History of multiple sclerosis, another pelvis noted below presenting with abdominal pain. In summary, patient found to have recurrence of acute sigmoid diverticulitis with colonic obstruction, initially managed conservatively with bowel rest, IV antibiotics and IV fluids. However patient was not progressing, still without bowel movement or flatus. GI performed flex sig with decompression, however KUB showed persistent small bowel distention. Sigmoid resection done 01/09 RECURRENT ACUTE SIGMOID DIVERTICULITIS COLONIC OBSTRUCTION CT scan abdomen pelvis notable moderate colonic diverticulosis with evidence of acute sigmoid diverticulitis. No intraperitoneal free air is identified and there is no organized fluid collection to suggest abscess. The upstream colon is mildly distended and fluid-filled. This could represent a mild reactive ileus or possibly mild colonic obstruction secondary to inflammation/edema of the sigmoid. General surgery consulted, recommended conservative management Was placed on IV Zosyn and IV fluids, bowel rest Unfortunately, patient's abdominal pain and nausea persisted, no flatus or bowel movement after a few days of observation 01/04/[address] abdomen: Progression of colonic distention, possible colonic mass 01/05/2020: GI service consulted, status post flex endoscopy with decompression; s/p Flex Sig 01/04: Diverticular sigmoid stricture. Biopsied. Decompression tube placed. 01/06/2020 KUB: 1. Enteric and rectal tube positioning as above. 2. Persistent large and small bowel distention, mildly improved from comparison. TPN via PICC line Continue IV Zosyn plus Flagyl, Miralax TID per GI service Heparin held PAROXYSMAL ATRIAL FIBRILLATION New-onset, developed during admission Likely secondary to pain, underlying infection Cardiology on case Amiodarone drip Usual metoprolol XL 25 mg p.o. discontinued Continue aspirin per cardiology service, okay with general surgery Mostly in sinus rhythm, intermittently develops episodes of atrial fibrillation Monitor electrolytes CORONARY ARTERY DISEASE no cardiac symptoms Hold Plavix General surgery okay to continue aspirin Periop Metoprolol XL , Amiodarone drip for atrial fibrillation HLD (hyperlipidemia): continue statin periop Multiple sclerosis: stable monitor Tobacco use disorder: 1 pack/week x 40 years counselling done Patient declined nicotine patch DVT prophylaxis: Heparin SC q12h Disposition Resume Post Op Care per Surgery Protocol Incentive Spirometry 10x per Hour Resume Relative Home Meds Where Appropriate Transition from IV to PO Pain control DVT Prophylaxis Per Surgery Protocol Monitor Daily Labs Await return of gut motility Anticipate discharge to home when medically stable 2-3 days post op Follow-up with PCP Follow-up with general surgery and GI Follow-up with school photographer Labs Checked ROS-No Headache, No Visual Changes, No Nausea, No Vomiting, No Fever, No Chills, No Neck Pain or Stiffness, No Chest Pain, No Palpitations, No SOB, No ESPINOZA, No Cough, No Sputum, No Wheezing, + Abdominal Pain, No Diarrhea, No Hematemesis, No Hemoptysis, No Unexpected Weight Loss, No Flank pain, No Melena, No Hematochezia, No Frequency, No Urgency, No Burning, No Hematuria, No Rashes, No Diaphoresis. Appetite is Normal c/o abd pain Physical Exam Gen-AAO x 3, NAD, Afebrile Head-NCAT, EOMI, PERRLA, Anicteric Sclera, No Posterior Pharyngeal Erythema Neck-Supple, No JVD, No Thyromegaly, No Masses, No LAD, No Bruits Lungs-Clear to Auscultation Bilaterally, No Rales, No Rhonchi, No Wheezing, No Crepitus Chest-No S4, +S1, +S2, No S3, No Murmurs, No Rubs, No Gallops, No Ectopy Abdomen-Soft, Tender, Non Distended, No Hepatomegaly, No Splenomegaly, No Palpable Masses, No Rebound, No Rigidity, + Guarding, +NGT, +TPN Musculoskeletal-Full Range of Motion Bilaterally, No CVAT Extremities-No Cyanosis, No Clubbing, No Edema Nuero-Cranial Nerves II-XII grossly intact, Motor WNL, DTRs WNL, Strength WNL, Non Focal Psych-Normal Mood Admission and Anticipated Discharge Date Admission Date: January 01, 2020 Results & Data Results & Data ([facility]) Vital Signs (Past 12 Hours) Vital Signs Temp Pulse Pulse Resp BP BP BP 01/11/20 04:30 65 125/69 01/11/20 03:50 36.6 C 72 18 125/69 01/11/20 00:00 36.7 C 96 H 63 18 114/79 01/10/20 21:55 58 L 110/77 01/10/20 21:17 69 110/77 08/20/20 19:15 36.5 C 62 20 105/67 Pulse Ox 01/11/20 04:30 01/11/20 03:50 94 01/11/20 00:00 93 01/10/20 21:55 01/10/20 21:17 95 01/10/20 19:15 94
--- NOTE | 2020-01-11 07:35 | Surgery Progress Note ---
Date of Service January 11, 2020 Assessment & Plan (1) Colonic stricture: Intraoperative findings were discussed with the patient including the details of the procedure primary anastomosis anticipated recovery time At this time we will DC the Boyer DC the NG tube start her on clear liquids c ontinue hyperalimentation until her oral intake is sufficient Suspect it will take about 3 to 4 days until the GI function returns We will increase her activity leave it up to the medical service as far as transferring to a regular floor Present on Admission?: Yes Admission and Anticipated Discharge Date Admission Date: January 01, 2020 Subjective Patient is comfortable had some discomfort during the night and after surgery analgesics appear to be sufficient Physical Exam Physical Exam: Is alert coherent daughters in the room with her The NG drainage is minimal The abdomen is completely benign no seepage noted on the dressing dressings on the lateral port sites was removed the incision is intact Results & Data ([facility]) Vital Signs (Past 12 Hours) Vital Signs Temp Pulse Pulse Resp BP BP BP 01/11/20 04:30 65 125/69 01/11/20 03:50 36.6 C 72 18 125/69 01/11/20 00:00 36.7 C 96 H 63 18 114/79 01/10/20 21:55 58 L 110/77 01/10/20 21:17 69 110/77 Pulse Ox 01/11/20 04:30 01/11/20 03:50 94 01/11/20 00:00 93 01/10/20 21:55 01/10/20 21:17 95 NG drainage urine output noted lab is pending PG Care Time/CCT Total # of Minutes Spent Total Time Spent with Patient: Total time spent is greater than 50% in coordination of care (as documented) at patient's floor/unit and/or counseling patient: Coding Level of Care Code None Diagnoses Colonic stricture K56.699
--- NOTE | 2020-01-11 08:19 | Anesthesiology Progress Note ---
Date of Service January 11, 2020 Anesthesia Post Procedure Vital Signs Vital Signs: Temp Pulse Pulse Resp BP BP BP 01/11/20 07:39 36.5 C 69 18 133/69 01/11/20 04:30 65 125/69 01/11/20 03:50 36.6 C 72 18 125/69 01/11/20 00:00 36.7 C 96 H 63 18 114/79 01/10/20 21:55 58 L 110/77 01/10/20 21:17 69 110/77 01/10/20 19:15 36.5 C 62 20 105/67 01/10/20 18:08 70 16 128/83 01/10/20 17:11 72 16 103/74 01/10/20 16:17 71 16 97/63 L 01/10/20 16:00 36.7 C 76 16 103/64 01/10/20 15:40 79 14 105/67 01/10/20 15:30 36.4 C L 69 13 106/83 01/10/20 15:20 71 12 121/88 01/10/20 15:10 69 12 112/73 01/10/20 15:00 67 12 120/84 01/10/20 14:50 65 15 128/79 01/10/20 14:40 67 13 128/94 01/10/20 14:30 66 18 128/64 01/10/20 14:20 69 19 131/85 01/10/20 14:10 91 H 13 149/93 H 01/10/20 14:00 92 H 13 150/89 H 01/10/20 13:50 91 H 15 154/106 H 01/10/20 13:44 36.3 C L 100 H 22 164/106 H Pulse Ox 01/11/20 07:39 95 01/11/20 04:30 01/11/20 03:50 94 01/11/20 00:00 93 01/10/20 21:55 01/10/20 21:17 95 01/10/20 19:15 94 01/10/20 18:08 96 01/10/20 17:11 96 01/10/20 16:17 97 01/10/20 16:00 96 01/10/20 15:40 95 01/10/20 15:30 94 01/10/20 15:20 97 01/10/20 15:10 97 01/10/20 15:00 97 01/10/20 14:50 97 01/10/20 14:40 95 01/10/20 14:30 97 01/10/20 14:20 95 01/10/20 14:10 99 01/10/20 14:00 99 01/10/20 13:50 97 01/10/20 13:44 96 Notes Mental Status: alert / awake / arousable Patient Amnestic to Procedure: Yes Nausea / Vomiting: adequately controlled Pain: adequately controlled Airway Patency, RR, SpO2: stable & adequate BP & HR: stable & adequate Hydration State: stable & adequate Anesthetic Complications: no major complications apparent and Pt Satisfied with anesthetic care
[2020-01-11] MEDS: PANTOprazole 40 MG in SYRINGE 0 ML IV SCH ×2 (08:44→22:15)
[2020-01-11 09:16] LABS: Basophils # (auto) 0.01 K/uL (0-0.2); Basophils % (auto) 0.1 %; Hematocrit (blood only) 38.6 % (37-47); Hemoglobin 12.5 g/dL (12.0-16.0); Immature Granulocytes # (auto) 0.07 K/uL (0.00-0.02); Immature Granulocytes % (auto) 0.4 %; Lymphocytes # (auto) 0.98 K/uL (1.2-3.4); Lymphocytes % (auto) 5.3 %; Mean Corpuscular Hemoglobin 30.8 pg (25-34); Mean Corpuscular Hgb Conc 32.4 g/dL (32-36); Mean Corpuscular Volume 95.1 fL (80-100); Mean Platelet Volume 11.5 fL (7.4-10.4); Monocytes # (auto) 0.66 K/uL (0.11-0.59); Monocytes % (auto) 3.6 %; Neutrophils # (auto) 16.78 K/uL (1.4-6.5); Neutrophils % (auto) 90.6 %; Platelet Count 311 K/uL (130-400); RDW Coefficient of Variation 14.9 % (11.5-14.5); RDW Standard Deviation 51.5 fL (36.4-46.3); Red Blood Count 4.06 M/uL (4.2-5.4)
[2020-01-11 09:53] LABS: BUN Creatinine Ratio 19.9 (10-20); Calcium 8.4 mg/dl (8.5-10.1); Creatinine Clr Calc Pharmacy 101.5 ml/min; Est GFR (African American) 102.1; Est GFR (Non-African American) 88.1; Magnesium 2.1 mg/dl (1.8-2.4); Potassium 4.5 mmol/L (3.5-5.1)
[2020-01-11] MEDS: AMIODARONE / D5W 360 MG/200 ML BAG IV SCH ×2 (09:55→22:16)
[2020-01-11 09:56] LABS: Bilirubin,Total 0.3 mg/dl (0.2-1)
[2020-01-11] MEDS ORDERED: CENTRAL PN IV SCH ×2 (12:00→16:00)
[2020-01-11] MEDS ORDERED: SODIUM PHOSPHATE 15 MMOL in SODIUM CHLORIDE 0.9% 250 ML IV ONE (12:00)
[2020-01-11] MEDS ORDERED: TPN IV SCH ×2 (12:00→16:00)
[2020-01-11] MEDS: MORPHINE SULFATE PCA 30 MG/30 ML IV PRN (14:46)
[2020-01-11] MEDS ORDERED: NALOXONE HCL 0.4 MG/1 ML VIAL/CARP IV PRN (16:01)
[2020-01-11] MEDS ORDERED: HYDROmorphone PCA 30 MG/30 ML IV PRN (16:01)
[2020-01-11] MEDS ORDERED: SODIUM CHLORIDE 0.9% 1000ML 1,000 ML IV SCH (16:15)
--- NOTE | 2020-01-11 16:42 | Cardiology Progress Note ---
Date of Service January 11, 2020 Assessment & Plan (1) Paroxysmal atrial fibrillation: 2. Coronary artery disease post prior [place] with FITZ to circumflex 03/2018 3. Bowel obstruction secondary to colonic stricture/diverticulitis Remains in sinus rhythm today. No signs of heart failure on exam. Continue to monitor in PCU Continue amiodarone 0.5 mg/min for now Continue current scheduled IV metoprolol When able to tolerate p.o. medications would start metoprolol 25 mg every 8 hours and stop amiodarone infusion and IV metoprolol. If does have recurrent A. fib with RVR would titrate PO metoprolol as BP allows with additional IV metoprolol as needed Start anticoagulation for atrial fibrillation when safe from a surgical standpoint. If can tolerate oral meds start Eliquis 5 mg twice daily. Plan for anticoagulation for at least 1 month. Admission and Anticipated Discharge Date Admission Date: January 01, 2020 Subjective Patient feeling relatively well this afternoon. Pain reasonably controlled. Tolerating clears. No chest pain or palpitations. Telemetry reviewedno recurrent atrial fibrillation over last 24 hours Review of Systems Review of Systems: All systems reviewed & are unremarkable except as noted in HPI & below Physical Exam Physical Exam: General: Comfortable, no acute distress HEENT: Sclerae anicteric Lungs: Clear to auscultation bilaterally Cardiac: Regular with occasional premature beats, no murmurs Abdomen: Soft, no bowel sounds Extremities: Warm, well perfused, no edema. 2+ radial pulses Skin: No rashes or lesions. Neuro: Nonfocal Psych: Alert orient x3, normal affect and mood Results & Data ([facility]) Vital Signs (Past 12 Hours) Vital Signs Temp Pulse Pulse Resp BP BP Pulse Ox 01/11/20 15:12 97.9 F 74 23 140/87 95 01/11/20 12:42 82 123/63 01/11/20 12:00 98.2 F 78 18 123/63 99 01/11/20 07:39 97.7 F 69 18 133/69 95 PG Care Time/CCT Total # of Minutes Spent Total Time Spent with Patient: Total time spent is greater than 50% in coordination of care (as documented) at patient's floor/unit and/or counseling patient: Coding Level of Care Code 25282 Subseq Hosp Care Lvl 3 Diagnoses Paroxysmal atrial fibrillation I48.0
[2020-01-11] MEDS: SODIUM CHLORIDE 0.9% 1000ML 1,000 ML IV SCH (18:19)
[2020-01-12] MEDS: ACETAMINOPHEN 1,000 MG/100 ML VIAL IV SCH ×3 (01:27→19:34)
[2020-01-12] MEDS: HEPARIN SOD 5,000 UNIT/0.5 ML VIAL SQ SCH ×3 (04:58→21:00)
[2020-01-12] MEDS: METOPROLOL TARTRATE 1 MG/ML VIAL IV SCH ×4 (04:58→22:04)
--- NOTE | 2020-01-12 07:25 | Hospitalist Progress Note ---
Date of Service January 12, 2020 Assessment & Plan (1) Acute diverticulitis of intestine: 59-year-old female with history of recurrent diverticulitis, coronary artery disease status post stent placement, History of multiple sclerosis, another pelvis noted below presenting with abdominal pain. In summary, patient found to have recurrence of acute sigmoid diverticulitis with colonic obstruction, initially managed conservatively with bowel rest, IV antibiotics and IV fluids. However patient was not progressing, still without bowel movement or flatus. GI performed flex sig with decompression, however KUB showed persistent small bowel distention. Sigmoid resection done 01/09 RECURRENT ACUTE SIGMOID DIVERTICULITIS COLONIC OBSTRUCTION CT scan abdomen pelvis notable moderate colonic diverticulosis with evidence of acute sigmoid diverticulitis. No intraperitoneal free air is identified and there is no organized fluid collection to suggest abscess. The upstream colon is mildly distended and fluid-filled. This could represent a mild reactive ileus or possibly mild colonic obstruction secondary to inflammation/edema of the sigmoid. General surgery consulted, recommended conservative management Was placed on IV Zosyn and IV fluids, bowel rest Unfortunately, patient's abdominal pain and nausea persisted, no flatus or bowel movement after a few days of observation 01/04/[address] abdomen: Progression of colonic distention, possible colonic mass 01/05/2020: GI service consulted, status post flex endoscopy with decompression; s/p Flex Sig 01/04: Diverticular sigmoid stricture. Biopsied. Decompression tube placed. 01/06/2020 KUB: 1. Enteric and rectal tube positioning as above. 2. Persistent large and small bowel distention, mildly improved from comparison. TPN via PICC line Continue IV Zosyn now off Flagyl, Miralax TID per GI service SQ Heparin PAROXYSMAL ATRIAL FIBRILLATION New-onset, developed during admission Likely secondary to pain, underlying infection Cardiology on case Amiodarone Metoprolol XL 25 mg p.o. Continue aspirin per cardiology service, okay with general surgery Mostly in sinus rhythm, intermittently develops episodes of atrial fibrillation Monitor electrolytes CORONARY ARTERY DISEASE no cardiac symptoms Resume Plavix General surgery okay to continue aspirin Periop Metoprolol XL , Amiodarone HLD (hyperlipidemia): continue statin periop when able PO Multiple sclerosis: stable monitor Tobacco use disorder: 1 pack/week x 40 years counselling done Patient declined nicotine patch DVT prophylaxis: Heparin SC q8h Disposition Resume Post Op Care per Surgery Protocol Incentive Spirometry 10x per Hour Resume Relative Home Meds Where Appropriate Transition from IV to PO Pain control DVT Prophylaxis Per Surgery Protocol Monitor Daily Labs Await return of gut motility Anticipate discharge to home when medically stable 2-3 days post op Follow-up with PCP Follow-up with general surgery and GI Follow-up with territory sales professional Labs Checked ROS-No Headache, No Visual Changes, No Nausea, No Vomiting, No Fever, No Chills, No Neck Pain or Stiffness, No Chest Pain, No Palpitations, No SOB, No ESPINOZA, No Cough, No Sputum, No Wheezing, + Abdominal Pain, No Diarrhea, No Hematemesis, No Hemoptysis, No Unexpected Weight Loss, No Flank pain, No Melena, No Hematochezia, No Frequency, No Urgency, No Burning, No Hematuria, No Rashes, No Diaphoresis. Appetite is Normal c/o less abd pain Physical Exam Gen-AAO x 3, NAD, Afebrile Head-NCAT, EOMI, PERRLA, Anicteric Sclera, No Posterior Pharyngeal Erythema Neck-Supple, No JVD, No Thyromegaly, No Masses, No LAD, No Bruits Lungs-Clear to Auscultation Bilaterally, No Rales, No Rhonchi, No Wheezing, No Crepitus Chest-No S4, +S1, +S2, No S3, No Murmurs, No Rubs, No Gallops, No Ectopy Abdomen-Soft, Tender, Non Distended, No Hepatomegaly, No Splenomegaly, No Palpable Masses, No Rebound, No Rigidity, + Guarding, +NGT, +TPN Musculoskeletal-Full Range of Motion Bilaterally, No CVAT Extremities-No Cyanosis, No Clubbing, No Edema Nuero-Cranial Nerves II-XII grossly intact, Motor WNL, DTRs WNL, Strength WNL, Non Focal Psych-Normal Mood Admission and Anticipated Discharge Date Admission Date: January 01, 2020 Results & Data Results & Data ([facility]) Vital Signs (Past 12 Hours) Vital Signs Temp Pulse Pulse Resp BP BP Pulse Ox 01/12/20 04:58 50 L 01/12/20 02:53 36.7 C 62 17 114/71 95 01/11/20 23:22 36.6 C 59 L 18 111/66 95 01/11/20 22:16 86 124/79 01/11/20 20:03 36.5 C 62 20 124/79 94
[2020-01-12 07:28] LABS: Hematocrit (blood only) 32.5 % (37-47); Hemoglobin 10.3 g/dL (12.0-16.0); Mean Corpuscular Hemoglobin 30.3 pg (25-34); Mean Corpuscular Hgb Conc 31.7 g/dL (32-36); Mean Corpuscular Volume 95.6 fL (80-100); Mean Platelet Volume 11.2 fL (7.4-10.4); Platelet Count 277 K/uL (130-400); RDW Coefficient of Variation 15.1 % (11.5-14.5); RDW Standard Deviation 52.6 fL (36.4-46.3); White Blood Count 15.32 K/uL (4.8-10.8)
[2020-01-12 07:41] LABS: Albumin Level 2.1 gm/dl (3.4-5.0); BUN Creatinine Ratio 24.7 (10-20); Calcium 7.9 mg/dl (8.5-10.1); Creatinine Clr Calc Pharmacy 110.5 ml/min; Est GFR (African American) 110.2; Est GFR (Non-African American) 95.1
[2020-01-12 07:44] LABS: Albumin Globulin Ratio 0.7 (0.9-2); Bilirubin,Total 0.2 mg/dl (0.2-1); Globulin 2.8 gm/dl (2.5-4.0); Total Protein 4.9 gm/dl (6.4-8.2)
--- NOTE | 2020-01-12 08:30 | Surgery Progress Note ---
Date of Service January 12, 2020 Assessment & Plan (1) Colonic stricture: -s/p sigmoid resection -encourage ambulation -continue liquids only until bowel function improves -continue hyperalimentation until oral intake is adequate Admission and Anticipated Discharge Date Admission Date: January 01, 2020 Supervising Physician Co-Signing Physician Notes Patient seen and examined, labs and imaging reviewed, agree with above. POD #2 sigmoid resection with anastomosis for diverticular stricture. Overall doing well, pain controlled. Afebrile with stable vitals. She is not passing flatus yet. Dressing removed at bedside, [place] in place, incisions without evidence of infection. JASMIN drain with serosanguineous fluid. WBC improving. We will continue clear liquids until return of bowel function, encourage ambulation. Continue TPN until adequate oral intake. Subjective Pt. denies N/V. No BM or flatus since surgery. She does not feel very hungry but is tolerating small amounts of liquids. She has been ambulating in hallway. Physical Exam Constitutional: well developed and well nourished; no acute distress Neck: trachea midline Respiratory: normal respiratory effort; no respiratory distress and no labored breathing Cardiovascular: Rate/Rhythm: regular rate and regular rhythm Gastrointestinal (Abdomen): Inspection/Auscultation: + hypoactive bowel sounds Percussion/Palpation: + abdomen tender and abdomen soft Results & Data ([facility]) Vital Signs (Past 12 Hours) Vital Signs Temp Pulse Pulse Resp BP BP Pulse Ox 01/12/20 07:40 36.8 C 64 20 119/63 93 01/12/20 04:58 50 L 01/12/20 02:53 36.7 C 62 17 114/71 95 01/11/20 23:22 36.6 C 59 L 18 111/66 95 01/11/20 22:16 86 124/79 PG Care Time/CCT Total # of Minutes Spent Total Time Spent with Patient: Total time spent is greater than 50% in coordination of care (as documented) at patient's floor/unit and/or counseling patient: Coding Level of Care Code None Diagnoses Colonic stricture K56.699
[2020-01-12 08:56] LABS: Phosphorus 2.6 mg/dl (2.5-4.9)
[2020-01-12] MEDS: PANTOprazole 40 MG in SYRINGE 0 ML IV SCH ×2 (09:34→20:59)
[2020-01-12] MEDS: PIPERACILLIN/TAZOBACTAM 3.375 GM in DEXTROSE 5% 100 ML IV SCH ×2 (10:04→15:22)
[2020-01-12] MEDS: AMIODARONE / D5W 360 MG/200 ML BAG IV SCH ×2 (10:05→21:59)
[2020-01-12] MEDS: SODIUM CHLORIDE 0.9% 1000ML 1,000 ML IV SCH (15:21)
[2020-01-12] MEDS ORDERED: CENTRAL PN IV SCH (16:00)
[2020-01-12] MEDS ORDERED: TPN IV SCH (16:00)
[2020-01-13] MEDS: ACETAMINOPHEN 1,000 MG/100 ML VIAL IV SCH ×2 (00:08→08:32)
[2020-01-13] MEDS: PIPERACILLIN/TAZOBACTAM 3.375 GM in DEXTROSE 5% 100 ML IV SCH ×3 (00:08→16:36)
[2020-01-13] MEDS: METOPROLOL TARTRATE 1 MG/ML VIAL IV SCH ×4 (04:52→20:11)
[2020-01-13] MEDS: HEPARIN SOD 5,000 UNIT/0.5 ML VIAL SQ SCH ×3 (05:40→20:12)
--- NOTE | 2020-01-13 07:04 | Hospitalist Progress Note ---
Date of Service January 13, 2020 Assessment & Plan (1) Acute diverticulitis of intestine: 59-year-old female with history of recurrent diverticulitis, coronary artery disease status post stent placement, History of multiple sclerosis, another pelvis noted below presenting with abdominal pain. In summary, patient found to have recurrence of acute sigmoid diverticulitis with colonic obstruction, initially managed conservatively with bowel rest, IV antibiotics and IV fluids. However patient was not progressing, still without bowel movement or flatus. GI performed flex sig with decompression, however KUB showed persistent small bowel distention. Sigmoid resection done 01/09 RECURRENT ACUTE SIGMOID DIVERTICULITIS COLONIC OBSTRUCTION CT scan abdomen pelvis notable moderate colonic diverticulosis with evidence of acute sigmoid diverticulitis. No intraperitoneal free air is identified and there is no organized fluid collection to suggest abscess. The upstream colon is mildly distended and fluid-filled. This could represent a mild reactive ileus or possibly mild colonic obstruction secondary to inflammation/edema of the sigmoid. General surgery consulted, recommended conservative management Was placed on IV Zosyn and IV fluids, bowel rest Unfortunately, patient's abdominal pain and nausea persisted, no flatus or bowel movement after a few days of observation 01/04/[address] abdomen: Progression of colonic distention, possible colonic mass 01/05/2020: GI service consulted, status post flex endoscopy with decompression; s/p Flex Sig 01/04: Diverticular sigmoid stricture. Biopsied. Decompression tube placed. 01/06/2020 KUB: 1. Enteric and rectal tube positioning as above. 2. Persistent large and small bowel distention, mildly improved from comparison. DC TPN today and diet as per surgery Continue IV Zosyn now off Flagyl, Miralax TID per GI service SQ Heparin PAROXYSMAL ATRIAL FIBRILLATION New-onset, developed during admission Likely secondary to pain, underlying infection Cardiology on case Amiodarone Metoprolol XL 25 mg p.o. Continue aspirin per cardiology service, okay with general surgery Mostly in sinus rhythm, intermittently develops episodes of atrial fibrillation Monitor electrolytes CORONARY ARTERY DISEASE no cardiac symptoms Resume Plavix General surgery okay to continue aspirin Periop Metoprolol XL , Amiodarone can be made PO HLD (hyperlipidemia): continue statin Multiple sclerosis: stable monitor Tobacco use disorder: 1 pack/week x 40 years counselling done Patient declined nicotine patch DVT prophylaxis: Heparin SC q8h Disposition Resume Post Op Care per Surgery Protocol Incentive Spirometry 10x per Hour Resume Relative Home Meds Where Appropriate Transition PO Pain control DVT Prophylaxis Per Surgery Protocol Monitor Daily Labs Patient is moving her bowels Anticipate discharge to home 1-2 days Follow-up with PCP Follow-up with general surgery and GI Follow-up with ell teacher Labs Checked ROS-No Headache, No Visual Changes, No Nausea, No Vomiting, No Fever, No Chills, No Neck Pain or Stiffness, No Chest Pain, No Palpitations, No SOB, No ESPINOZA, No Cough, No Sputum, No Wheezing, + Abdominal Pain, No Diarrhea, No Hematemesis, No Hemoptysis, No Unexpected Weight Loss, No Flank pain, No Melena, No Hematochezia, No Frequency, No Urgency, No Burning, No Hematuria, No Rashes, No Diaphoresis. Appetite is Normal c/o less abd pain Physical Exam Gen-AAO x 3, NAD, Afebrile Head-NCAT, EOMI, PERRLA, Anicteric Sclera, No Posterior Pharyngeal Erythema Neck-Supple, No JVD, No Thyromegaly, No Masses, No LAD, No Bruits Lungs-Clear to Auscultation Bilaterally, No Rales, No Rhonchi, No Wheezing, No Crepitus Chest-No S4, +S1, +S2, No S3, No Murmurs, No Rubs, No Gallops, No Ectopy Abdomen-Soft, Tender, Non Distended, No Hepatomegaly, No Splenomegaly, No Palpable Masses, No Rebound, No Rigidity, Mild Guarding, +NGT, +TPN Musculoskeletal-Full Range of Motion Bilaterally, No CVAT Extremities-No Cyanosis, No Clubbing, No Edema Nuero-Cranial Nerves II-XII grossly intact, Motor WNL, DTRs WNL, Strength WNL, Non Focal Psych-Normal Mood Admission and Anticipated Discharge Date Admission Date: January 01, 2020 Results & Data Results & Data ([facility]) Vital Signs (Past 12 Hours) Vital Signs Temp Pulse Pulse Resp BP BP Pulse Ox 01/13/20 04:30 36.8 C 102 H 18 132/91 93 01/12/20 23:04 70 01/12/20 22:26 37.0 C 71 18 110/69 95 01/12/20 22:04 71 110/69
[2020-01-13 07:11] LABS: Basophils # (auto) 0.03 K/uL (0-0.2); Basophils % (auto) 0.2 %; Eosinophils # (auto) 0.37 K/uL (0-0.5); Hematocrit (blood only) 34.7 % (37-47); Hemoglobin 11.1 g/dL (12.0-16.0); Immature Granulocytes # (auto) 0.13 K/uL (0.00-0.02); Immature Granulocytes % (auto) 1.1 %; Lymphocytes # (auto) 2.06 K/uL (1.2-3.4); Mean Corpuscular Hemoglobin 30.2 pg (25-34); Mean Corpuscular Volume 94.3 fL (80-100); Mean Platelet Volume 11.1 fL (7.4-10.4); Monocytes # (auto) 1.08 K/uL (0.11-0.59); Monocytes % (auto) 8.9 %; Neutrophils # (auto) 8.47 K/uL (1.4-6.5); Neutrophils % (auto) 69.8 %; Nucleated RBC # (auto) 0.05 K/uL (0-0); Nucleated RBC % (auto) 0.4 %; Platelet Count 301 K/uL (130-400); RDW Standard Deviation 51.2 fL (36.4-46.3); Red Blood Count 3.68 M/uL (4.2-5.4); White Blood Count 12.14 K/uL (4.8-10.8)
[2020-01-13 07:31] LABS: Albumin Level 2.1 gm/dl (3.4-5.0); BUN Creatinine Ratio 24.3 (10-20); Calcium 7.9 mg/dl (8.5-10.1); Creatinine Clr Calc Pharmacy 101.7 ml/min; Est GFR (African American) 100.4; Est GFR (Non-African American) 86.6; Potassium 3.7 mmol/L (3.5-5.1)
[2020-01-13] MEDS: LORazepam 0.5 MG/1 ML VIAL IV PRN ×2 (07:31→14:14)
--- NOTE | 2020-01-13 07:55 | Surgery Progress Note ---
Date of Service January 13, 2020 Assessment & Plan (1) Colonic stricture: -s/p sigmoid resection -as bowel function has resumed will advance diet to full liquids -continue TPN until oral intake adequate -encourage ambulation Admission and Anticipated Discharge Date Admission Date: January 01, 2020 Subjective Pt. notes she had BM last night. No N/V. She notes incisional pain. No SOB or CP. Physical Exam Constitutional: well developed and well nourished; no acute distress Respiratory: normal respiratory effort; no respiratory distress and no labored breathing Cardiovascular: Rate/Rhythm: regular rate and regular rhythm Gastrointestinal (Abdomen): Inspection/Auscultation: normal bowel sounds Percussion/Palpation: + abdomen tender (incisional ) Results & Data ([facility]) Vital Signs (Past 12 Hours) Vital Signs Temp Pulse Pulse Resp BP BP Pulse Ox 01/13/20 04:30 36.8 C 102 H 18 132/91 93 01/12/20 23:04 70 01/12/20 22:26 37.0 C 71 18 110/69 95 01/12/20 22:04 71 110/69 PG Care Time/CCT Total # of Minutes Spent Total Time Spent with Patient: Total time spent is greater than 50% in coordination of care (as documented) at patient's floor/unit and/or counseling patient: Coding Level of Care Code None Diagnoses Colonic stricture K56.699
[2020-01-13 08:00] LABS: Albumin Globulin Ratio 0.6 (0.9-2); Bilirubin,Total 0.3 mg/dl (0.2-1); Globulin 3.3 gm/dl (2.5-4.0); Phosphorus 3.6 mg/dl (2.5-4.9); Total Protein 5.4 gm/dl (6.4-8.2)
[2020-01-13] MEDS: PANTOprazole 40 MG in SYRINGE 0 ML IV SCH ×2 (08:33→20:11)
[2020-01-13] MEDS: AMIODARONE / D5W 360 MG/200 ML BAG IV SCH ×2 (09:07→20:11)
[2020-01-13] MEDS ORDERED: TPN IV SCH (16:00)
[2020-01-13] MEDS ORDERED: CENTRAL PN IV SCH (16:00)
[2020-01-13] MEDS: SODIUM CHLORIDE 0.9% 1000ML 1,000 ML IV SCH (16:50)
[2020-01-13] MEDS: PROMETHAZINE HCL 12.5 MG in SODIUM CHLORIDE 0.9% 50 ML IV PRN (18:59)
[2020-01-14] MEDS: PIPERACILLIN/TAZOBACTAM 3.375 GM in DEXTROSE 5% 100 ML IV SCH (00:33)
[2020-01-14] MEDS: METOPROLOL TARTRATE 1 MG/ML VIAL IV SCH ×2 (05:08→11:12)
[2020-01-14] MEDS: HEPARIN SOD 5,000 UNIT/0.5 ML VIAL SQ SCH (05:09)
[2020-01-14 06:09] LABS: Hematocrit (blood only) 32.8 % (37-47); Hemoglobin 10.4 g/dL (12.0-16.0); Mean Corpuscular Hemoglobin 30.4 pg (25-34); Mean Corpuscular Hgb Conc 31.7 g/dL (32-36); Mean Corpuscular Volume 95.9 fL (80-100); Mean Platelet Volume 11.4 fL (7.4-10.4); Nucleated RBC % (auto) 0.9 %; Platelet Count 333 K/uL (130-400); RDW Coefficient of Variation 15.2 % (11.5-14.5); Red Blood Count 3.42 M/uL (4.2-5.4); White Blood Count 11.29 K/uL (4.8-10.8)
[2020-01-14 06:43] LABS: Albumin Level 1.9 gm/dl (3.4-5.0); BUN Creatinine Ratio 24.5 (10-20); Creatinine Clr Calc Pharmacy 107.9 ml/min; Est GFR (African American) 107.3; Est GFR (Non-African American) 92.6; Magnesium 1.9 mg/dl (1.8-2.4); Potassium 3.9 mmol/L (3.5-5.1)
[2020-01-14 06:55] LABS: Albumin Globulin Ratio 0.6 (0.9-2); Bilirubin,Total 0.4 mg/dl (0.2-1); Globulin 3.2 gm/dl (2.5-4.0); Phosphorus 2.7 mg/dl (2.5-4.9); Total Protein 5.1 gm/dl (6.4-8.2)
--- NOTE | 2020-01-14 06:55 | Hospitalist Progress Note ---
Date of Service January 14, 2020 Assessment & Plan (1) Acute diverticulitis of intestine: 59-year-old female with history of recurrent diverticulitis, coronary artery disease status post stent placement, History of multiple sclerosis, another pelvis noted below presenting with abdominal pain. In summary, patient found to have recurrence of acute sigmoid diverticulitis with colonic obstruction, initially managed conservatively with bowel rest, IV antibiotics and IV fluids. However patient was not progressing, still without bowel movement or flatus. GI performed flex sig with decompression, however KUB showed persistent small bowel distention. Sigmoid resection done 01/09 RECURRENT ACUTE SIGMOID DIVERTICULITIS COLONIC OBSTRUCTION CT scan abdomen pelvis notable moderate colonic diverticulosis with evidence of acute sigmoid diverticulitis. No intraperitoneal free air is identified and there is no organized fluid collection to suggest abscess. The upstream colon is mildly distended and fluid-filled. This could represent a mild reactive ileus or possibly mild colonic obstruction secondary to inflammation/edema of the sigmoid. General surgery consulted, recommended conservative management Was placed on IV Zosyn and IV fluids, bowel rest Unfortunately, patient's abdominal pain and nausea persisted, no flatus or bowel movement after a few days of observation 01/04/[address] abdomen: Progression of colonic distention, possible colonic mass 01/05/2020: GI service consulted, status post flex endoscopy with decompression; s/p Flex Sig 01/04: Diverticular sigmoid stricture. Biopsied. Decompression tube placed. 01/06/2020 KUB: 1. Enteric and rectal tube positioning as above. 2. Persistent large and small bowel distention, mildly improved from comparison. DC TPN today and diet as per surgery Continue IV Zosyn now off Flagyl, Miralax TID per GI service SQ Heparin PAROXYSMAL ATRIAL FIBRILLATION New-onset, developed during admission Likely secondary to pain, underlying infection Cardiology on case Amiodarone Metoprolol XL 25 mg p.o. Continue aspirin per cardiology service, okay with general surgery Mostly in sinus rhythm, intermittently develops episodes of atrial fibrillation Monitor electrolytes CORONARY ARTERY DISEASE no cardiac symptoms Resume Plavix General surgery okay to continue aspirin Periop Metoprolol XL , Amiodarone can be made PO HLD (hyperlipidemia): continue statin Multiple sclerosis: stable monitor Tobacco use disorder: 1 pack/week x 40 years counselling done Patient declined nicotine patch DVT prophylaxis: Heparin SC q8h Disposition Resume Post Op Care per Surgery Protocol Incentive Spirometry 10x per Hour Resume Relative Home Meds Where Appropriate Transition PO Pain control DVT Prophylaxis Per Surgery Protocol Monitor Daily Labs Patient is moving her bowels Anticipate discharge to home 1-2 days Follow-up with PCP Follow-up with general surgery and GI Follow-up with performance test architect Labs Checked ROS-No Headache, No Visual Changes, No Nausea, No Vomiting, No Fever, No Chills, No Neck Pain or Stiffness, No Chest Pain, No Palpitations, No SOB, No ESPINOZA, No Cough, No Sputum, No Wheezing, + Abdominal Pain, No Diarrhea, No Hematemesis, No Hemoptysis, No Unexpected Weight Loss, No Flank pain, No Melena, No Hematochezia, No Frequency, No Urgency, No Burning, No Hematuria, No Rashes, No Diaphoresis. Appetite is Normal Eating Fulls Physical Exam Gen-AAO x 3, NAD, Afebrile Head-NCAT, EOMI, PERRLA, Anicteric Sclera, No Posterior Pharyngeal Erythema Neck-Supple, No JVD, No Thyromegaly, No Masses, No LAD, No Bruits Lungs-Clear to Auscultation Bilaterally, No Rales, No Rhonchi, No Wheezing, No Crepitus Chest-No S4, +S1, +S2, No S3, No Murmurs, No Rubs, No Gallops, No Ectopy Abdomen-Soft, Tender, Non Distended, No Hepatomegaly, No Splenomegaly, No Palpable Masses, No Rebound, No Rigidity, Mild Guarding, NGT out, Stop TPN Musculoskeletal-Full Range of Motion Bilaterally, No CVAT Extremities-No Cyanosis, No Clubbing, No Edema Nuero-Cranial Nerves II-XII grossly intact, Motor WNL, DTRs WNL, Strength WNL, Non Focal Psych-Normal Mood Admission and Anticipated Discharge Date Admission Date: January 01, 2020 Results & Data Results & Data ([facility]) Vital Signs (Past 12 Hours) Vital Signs Temp Pulse Resp BP BP Pulse Ox 01/14/20 05:08 93/54 L 01/14/20 03:28 36.9 C 89 18 93/54 L 95 01/14/20 00:04 36.8 C 117 H 16 96/60 L 93 01/13/20 19:13 36.4 C L 87 18 104/65 96
--- NOTE | 2020-01-14 06:59 | Surgery Progress Note ---
Date of Service January 14, 2020 Assessment & Plan (1) Colonic stricture: Will DC hyperalimentation today increase her diet to low fiber diet and possibly be rate discharge tomorrow will be back later to remove drain We DC antibiotic also switch to oral analgesics All questions were answered on the phone participated in conversation Present on Admission?: Yes Admission and Anticipated Discharge Date Admission Date: January 01, 2020 Subjective She states her belly hurts all over denies nausea and vomiting her bowels are functioning liquid green She was up pretty much all day yesterday and tolerated the full liquid diet Physical Exam Physical Exam: She is alert coherent in no distress resting comfortably in bed talking to her Vitals noted the abdomen is completely benign dressing intact Results & Data ([facility]) Vital Signs (Past 12 Hours) Vital Signs Temp Pulse Resp BP BP Pulse Ox 01/14/20 05:08 93/54 L 01/14/20 03:28 36.9 C 89 18 93/54 L 95 01/14/20 00:04 36.8 C 117 H 16 96/60 L 93 01/13/20 19:13 36.4 C L 87 18 104/65 96 results noted white count is trickling down hemoglobin stable path are still pending PG Care Time/CCT Total # of Minutes Spent Total Time Spent with Patient: Total time spent is greater than 50% in coordination of care (as documented) at patient's floor/unit and/or counseling patient: Coding Level of Care Code None Diagnoses Colonic stricture K56.699
[2020-01-14] MEDS: OXYCODONE/ACETAMINOPHEN 5mg/325mg TAB PO PRN ×3 (09:43→21:30)
[2020-01-14] MEDS: PANTOprazole 40 MG TAB PO SCH ×2 (09:44→20:51)
--- NOTE | 2020-01-14 10:57 | Cardiology Progress Note ---
Date of Service January 14, 2020 Assessment & Plan (1) Paroxysmal atrial fibrillation: 2. Coronary artery disease post prior [place] with FITZ to circumflex 03/2018 3. Bowel obstruction secondary to colonic stricture/diverticulitis Recurrent paroxysmal AF. Asymptomatic. Reasonably rate controlled. -- Can discontinue IV amiodarone infusion. -- Resume metoprolol to 12.5mg twice daily -- Recommend starting anticoagulation for at least 1 month. Start Eliquis 5mg bid today. -- Can discontinue aspirin. Follow-up with cardiology in 2 weeks post discharge. Admission and Anticipated Discharge Date Admission Date: January 01, 2020 Subjective Feeling well. Tolerating PO diet. Moving bowels. Abdominal pain reasonably controlled. Recurrent episodes of AF overnight. Primarily 110s, sometimes 120s. Asymptomatic. Review of Systems Review of Systems: All systems reviewed & are unremarkable except as noted in HPI & below Physical Exam Physical Exam: General: Comfortable, no acute distress HEENT: Sclerae anicteric Lungs: Clear to auscultation bilaterally Cardiac: Regular with occasional premature beats, no murmurs Abdomen: Soft, + bowel sounds Extremities: Warm, well perfused, no edema. 2+ radial pulses Skin: No rashes or lesions. Neuro: Nonfocal Psych: Alert orient x3, normal affect and mood Results & Data ([facility]) Vital Signs (Past 12 Hours) Vital Signs Temp Pulse Resp BP BP Pulse Ox 01/14/20 07:45 98.8 F 128 H 18 111/74 93 01/14/20 05:08 93/54 L 01/14/20 03:28 98.4 F 89 18 93/54 L 95 01/14/20 00:04 98.2 F 117 H 16 96/60 L 93 PG Care Time/CCT Total # of Minutes Spent Total Time Spent with Patient: Total time spent is greater than 50% in coordination of care (as documented) at patient's floor/unit and/or counseling patient: Coding Level of Care Code 44669 Subseq Hosp Care Lvl 3 Diagnoses Paroxysmal atrial fibrillation I48.0
[2020-01-14] MEDS ORDERED: METOPROLOL TARTRATE 1 MG/ML VIAL IV PRN (11:15)
[2020-01-14] MEDS ORDERED: METOPROLOL TARTRATE 25 MG TAB PO SCH (11:15)
[2020-01-14] MEDS ORDERED: OXYCODONE/ACETAMINOPHEN 5mg/325mg TAB PO STA (11:48)
[2020-01-14] MEDS: AMIODARONE / D5W 360 MG/200 ML BAG IV SCH (13:17)
[2020-01-14] MEDS: NYSTATIN SUSP 500,000 U/5 ML UDC PO SCH ×3 (13:32→20:52)
[2020-01-14] MEDS: APIXABAN 5 MG TABLET PO SCH ×2 (13:34→20:52)
[2020-01-14] MEDS: METOPROLOL SUCC 25MG EXT REL TAB PO SCH (20:49)
[2020-01-15 05:52] LABS: Hematocrit (blood only) 32.5 % (37-47); Hemoglobin 10.5 g/dL (12.0-16.0); Mean Corpuscular Hemoglobin 30.1 pg (25-34); Mean Corpuscular Hgb Conc 32.3 g/dL (32-36); Mean Corpuscular Volume 93.1 fL (80-100); Mean Platelet Volume 10.7 fL (7.4-10.4); Nucleated RBC # (auto) 0.04 K/uL (0-0); Nucleated RBC % (auto) 0.3 %; Platelet Count 358 K/uL (130-400); RDW Coefficient of Variation 15.2 % (11.5-14.5); RDW Standard Deviation 51.2 fL (36.4-46.3); Red Blood Count 3.49 M/uL (4.2-5.4); White Blood Count 11.02 K/uL (4.8-10.8)
[2020-01-15 06:18] LABS: BUN Creatinine Ratio 14.8 (10-20); Calcium 8.2 mg/dl (8.5-10.1); Creatinine Clr Calc Pharmacy 93.2 ml/min; Est GFR (African American) 91.5; Est GFR (Non-African American) 78.9; Potassium 3.9 mmol/L (3.5-5.1)
[2020-01-15] MEDS: OXYCODONE/ACETAMINOPHEN 5mg/325mg TAB PO PRN ×2 (08:47→12:46)
[2020-01-15] MEDS: PANTOprazole 40 MG TAB PO SCH (08:48)
[2020-01-15] MEDS: METOPROLOL SUCC 25MG EXT REL TAB PO SCH (08:49)
[2020-01-15] MEDS: APIXABAN 5 MG TABLET PO SCH (08:50)
[2020-01-15] MEDS: NYSTATIN SUSP 500,000 U/5 ML UDC PO SCH (08:51)
--- NOTE | 2020-01-15 08:53 | Cardiology Progress Note ---
Date of Service January 15, 2020 Assessment & Plan (1) Paroxysmal atrial fibrillation: 2. Coronary artery disease post prior UT with FITZ to circumflex 03/2018 3. Bowel obstruction secondary to colonic stricture/diverticulitis Recurrent paroxysmal AF. Asymptomatic. Reasonably rate controlled. --From a cardiac standpoint okay with discharge today Would increase home metoprolol succinate to 50 mg daily Continue Eliquis 5 mg twice daily Home off aspirin, Plavix. Follow-up with cardiology in 2 weeks post discharge. Admission and Anticipated Discharge Date Admission Date: January 01, 2020 Subjective Feeling well. Tolerating PO diet. Moving bowels. Abdominal pain reasonably controlled. Recurrent episodes of AF overnight. Primarily 110s, sometimes 120s. Asymptomatic. Physical Exam Physical Exam: General: Comfortable, no acute distress HEENT: Sclerae anicteric Lungs: Clear to auscultation bilaterally Cardiac: Regular with occasional premature beats, no murmurs Abdomen: Soft, + bowel sounds Extremities: Warm, well perfused, no edema. 2+ radial pulses Skin: No rashes or lesions. Neuro: Nonfocal Psych: Alert orient x3, normal affect and mood Results & Data ([facility]) Vital Signs (Past 12 Hours) Vital Signs Temp Pulse Pulse Resp BP Pulse Ox 01/15/20 07:12 98.6 F 114 H 16 105/81 98 01/15/20 04:03 98.1 F 88 18 124/76 99 01/15/20 00:00 81 01/14/20 23:43 98.6 F 123 H 18 115/76 95 PG Care Time/CCT Total # of Minutes Spent Total Time Spent with Patient: Total time spent is greater than 50% in coordination of care (as documented) at patient's floor/unit and/or counseling patient: Coding Level of Care Code 29641 Subseq Hosp Care Lvl 2 Diagnoses Paroxysmal atrial fibrillation I48.0
--- NOTE | 2020-01-15 09:31 | Surgery Progress Note ---
Date of Service January 15, 2020 Assessment & Plan (1) Colonic stricture: Patient is progressing as expected Tolerating a low fiber diet and having+ bowel function Pain being managed with prn medication Abdomen is soft and incisions healing well From our standpoint patient is stable for discharge to home pending medicine and cardiology Discharge instructions given, can change abdominal dressing daily with 4x4 gauze/medipore tape, no heavy lifting over 10 pounds, we asked to see patient in clinic next week Will leave a script for some percocet, but she should be able to wean off and start taking plain tylenol and ibuprofen Pt seen and examined with Dr. Coreas Admission and Anticipated Discharge Date Admission Date: January 01, 2020 Subjective Patient states she is still having some expected pain, being managed with prn medication. She doesn't have much of an appetite but is tolerating a regular diet. Having + bowel function. Otherwise no major complaints. Looking forward to going home. Physical Exam Physical Exam: awake/alert Gastrointestinal (Abdomen): Inspection/Auscultation: + abdominal surgical incision (surgical anca intact, some serosang drainage from infraumbilical incisio) Percussion/Palpation: + abdomen tender (some funmilayo-incisional ttp) and abdomen soft Results & Data ([facility]) Vital Signs (Past 12 Hours) Vital Signs Temp Pulse Pulse Resp BP Pulse Ox 01/15/20 07:12 37.0 C 114 H 16 105/81 98 01/15/20 04:03 36.7 C 88 18 124/76 99 01/15/20 00:00 81 01/14/20 23:43 37 C 123 H 18 115/76 95 PG Care Time/CCT Total # of Minutes Spent Total Time Spent with Patient: Total time spent is greater than 50% in coordination of care (as documented) at patient's floor/unit and/or counseling patient: Coding Level of Care Code None Diagnoses Colonic stricture K56.699
--- NOTE | 2020-01-15 09:42 | Discharge Summary ---
Date of Service January 15, 2020 Admission HPI Per Admitting Provider This is a 59-year-old female with significant PMH of CAD with history of 1 FITZ to the mid circumflex in 2018, HLD, MS, tobacco abuse, GERD who presents to ED secondary to left lower quadrant pain x2 days. Symptoms initially started on Tuesday with complaints of left lower quadrant abdominal pain with radiation to suprapubic and right lower quadrant. Pain is mostly constant, waxes and wanes in severity, made worse with p.o. intake, improved with rest, tried OTC APAP with no relief and is currently 8/10. She has had history of diverticulitis in the past, approximately 1 a year. She denies prior history of colonoscopy. This episode is different as for the past 2 days has also been experiencing nausea and emesis of clear, white phlegm. She did have one episode of fever, low 100s with associated chills. Denies any sweats, lightheadedness, dizziness, chest pain, shortness of breath, palpitations, cough, dysuria, increased urgency or frequency with urination, melena, medic easier, diarrhea. Her last normal BM was 4 days ago and has been more constipated. Typically is not constipated. Prior episodes of diverticulitis have presented with hematochezia. In ED patient remained hemodynamically stable, on admission she was mildly tachycardic but this was improved during my evaluation. Lab work notable for leukocytosis at 12.6K, H&H 17.1 and 50.6, platelet 238, sodium 134, BUN 12, creatinine 1.17, LFTs WNL. CT scan abdomen pelvis notable moderate colonic diverticulosis with evidence of acute sigmoid diverticulitis. No intraperitoneal free air is identified and there is no organized fluid collection to suggest abscess. The upstream colon is mildly distended and fluid-filled. This could represent a mild reactive ileus or possibly mild colonic obstruction secondary to inflammation/edema of the sigmoid. Nonemergent follow-up colonoscopy is recommended to exclude the less likely possibility of obstructing mass lesion. In ED she received IVF, IV morphine and IV Zosyn. Admission Exam Per Admitting Provider GENERAL: Comfortable, obese, pleasant, no respiratory distress SKIN: Normal color, warm HEENT: [place] palpebral conjunctivae, no ptosis, dry buccal mucosa NECK : Supple, short neck, no tenderness CHEST : CTA, no tenderness HEART : RRR, no obvious murmurs ABDOMEN: Some distention, nontender EXTREMITIES : No LE swelling/tenderness, no other conspicuous deformities noted NEUROLOGIC : Coherent, no facial asymmetry, no other gross focality Principal Diagnosis Acute diverticulitis of intestine: RECURRENT ACUTE SIGMOID DIVERTICULITIS COLONIC OBSTRUCTION PAROXYSMAL ATRIAL FIBRILLATION CORONARY ARTERY DISEASE HLD (hyperlipidemia): Tobacco use disorder: Discharge Exam See Below Discharge Data Allergies Allergy/AdvReac Type Severity Reaction Status Date / Time amoxicillin AdvReac Intermediate YEAST Verified 01/01/20 19:24 INFECTION Consultations 01/01/20 19:06 ED Decision to Admit Stat 01/01/20 20:46 Consult General Surgery Routine 01/04/20 19:12 Consult Cardiology Routine 01/05/20 11:44 Consult Gastroenterology Routine Procedures Performed Operation Date: 01/05/20 13:30 Actual Procedures p Colonoscopy with Decompression(Not Applicable) - Trisha Vigil MD Operation Date: 01/10/20 07:00 Actual Procedures p Laparoscopic Assisted Sigmoid Colon Resection;(Not Applicable) - Nelson Coreas MD s Left Salpingo-oopherectomy(Not Applicable) - Nelson Coreas MD Ordered Studies 01/01/20 17:30 CT abd pelvis IV con only Stat 01/04/20 23:41 CT abd pelvis IV con only Urgent 01/05/20 FL KUB Routine FL fluoroscopy <1hr Routine Current Diagnoses Hyperlipidemia, unspecified (01/01/20) Dehydration (01/01/20) Nicotine dependence, unspecified, uncomplicated (01/01/20) Multiple sclerosis (01/01/20) Atherosclerotic heart disease of [place] coronary artery without angina pectoris (01/01/20) Paroxysmal atrial fibrillation (01/01/20) Unspecified intestinal obstruction, unspecified as to partial versus complete obstruction (01/01/20) Other intestinal obstruction unspecified as to partial versus complete obstruction (01/01/20) Ileus, unspecified (01/01/20) Diverticulitis of intestine, part unspecified, without perforation or abscess without bleeding (01/01/20) Left lower quadrant pain (01/01/20) Encounter for other preprocedural examination (01/01/20) Encounter for prophylactic measures, unspecified (01/01/20) Presence of coronary angioplasty implant and graft (01/01/20) Allergies amoxicillin Adverse Reaction (Intermediate, Verified 01/01/20 19:24) YEAST INFECTION Height/Weight/Isolation Height 5 ft 8 in Weight 104 kg Chemistry 01/14/20 01/15/20 05:33 05:36 Sodium 139 141 Potassium 3.9 3.9 Chloride 106 111 H Carbon Dioxide 27 26 Anion Gap 6.0 4.0 BUN 17 12 Creatinine 0.71 0.81 Glucose 92 85 Hospital Course (1) Acute diverticulitis of intestine: 59-year-old female with history of recurrent diverticulitis, coronary artery disease status post stent placement, History of multiple sclerosis, another pelvis noted below presenting with abdominal pain. In summary, patient found to have recurrence of acute sigmoid diverticulitis with colonic obstruction, initially managed conservatively with bowel rest, IV antibiotics and IV fluids. However patient was not progressing, still without bowel movement or flatus. GI performed flex sig with decompression, however KUB showed persistent small bowel distention. Sigmoid resection done 01/09 RECURRENT ACUTE SIGMOID DIVERTICULITIS COLONIC OBSTRUCTION CT scan abdomen pelvis notable moderate colonic diverticulosis with evidence of acute sigmoid diverticulitis. No intraperitoneal free air is identified and there is no organized fluid collection to suggest abscess. The upstream colon is mildly distended and fluid-filled. This could represent a mild reactive ileus or possibly mild colonic obstruction secondary to inflammation/edema of the sigmoid. General surgery consulted, recommended conservative management Was placed on IV Zosyn and IV fluids, bowel rest Unfortunately, patient's abdominal pain and nausea persisted, no flatus or bowel movement after a few days of observation 01/04/[address] abdomen: Progression of colonic distention, possible colonic mass 01/05/2020: GI service consulted, status post flex endoscopy with decompression; s/p Flex Sig 01/04: Diverticular sigmoid stricture. Biopsied. Decompression tube placed. 01/06/2020 KUB: 1. Enteric and rectal tube positioning as above. 2. Persistent large and small bowel distention, mildly improved from comparison. DC Today on 50 mg Toprol XL, No Abx needed PAROXYSMAL ATRIAL FIBRILLATION New-onset, developed during admission Likely secondary to pain, underlying infection Cardiology on case Amiodarone Metoprolol XL 50 mg p.o. Continue aspirin per cardiology service, okay with general surgery CORONARY ARTERY DISEASE no cardiac symptoms Resume Plavix General surgery okay to continue aspirin Periop Metoprolol XL , Amiodarone DCd HLD (hyperlipidemia): continue statin Multiple sclerosis: stable monitor Tobacco use disorder: 1 pack/week x 40 years counselling done Patient declined nicotine patch DVT prophylaxis: Heparin SC q8h Disposition Discharge to home today Follow-up with PCP Follow-up with general surgery and GI Follow-up with food science technician Physical Exam Gen-AAO x 3, NAD, Afebrile Head-NCAT, EOMI, PERRLA, Anicteric Sclera, No Posterior Pharyngeal Erythema Neck-Supple, No JVD, No Thyromegaly, No Masses, No LAD, No Bruits Lungs-Clear to Auscultation Bilaterally, No Rales, No Rhonchi, No Wheezing, No Crepitus Chest-Tachy, Regular, No S4, +S1, +S2, No S3, No Murmurs, No Rubs, No Gallops, No Ectopy Abdomen-Soft, Tender, Non Distended, No Hepatomegaly, No Splenomegaly, No Palpable Masses, No Rebound, No Rigidity, Mild Guarding, NGT out, Stop TPN Musculoskeletal-Full Range of Motion Bilaterally, No CVAT Extremities-No Cyanosis, No Clubbing, No Edema Nuero-Cranial Nerves II-XII grossly intact, Motor WNL, DTRs WNL, Strength WNL, Non Focal Psych-Normal Mood Total Time Total Time Spent Total Time Spent (In Minutes): 45 mins Total Time Includes: Examination of the Patient, Discharge Planning, Medication Reconciliation and Communication With Other Providers Discharge Plan Discharge Items Patient Disposition: Home - Self-Care Reason For Visit: ACUTE SIGMOID DIVERTICULITIS Discharge Diagnosis: Acute diverticulitis of intestine: RECURRENT ACUTE SIGMOID DIVERTICULITIS COLONIC OBSTRUCTION PAROXYSMAL ATRIAL FIBRILLATION CORONARY ARTERY DISEASE HLD (hyperlipidemia): Tobacco use disorder: Condition on Discharge: Good Activity: Per Instructions section Lifting: No more than 10 pounds Bathing Comment: may shower; no soaking in tubs/pools Exercise/Sports: Wait until after follow-up appointment Driving/Machine Use: do not resume driving while taking narcotics for pain Non-emergency contact: Primary Care Provider, Surgeon and Tank Shop Supervisor Call non-emergency contact if: you have any medication questions, your symptoms worsen, your pain is not controlled, your pain is worsening, your pain is unusual for you, your pain is concerning for you, you have a fever, your temperature is above 101.5, your wound has increased redness, your wound has increased drainage and your wound pain has increased Follow-up/Referrals: Nelson Coreas MD [Surgeon] - (Please call to schedule follow up in clinic within 1 week) [place] Raphael MD [Physician] - (2-3 weeks) [place] MD [Primary Care Provider] - Diet: Heart Healthy and Low Fiber Addtl Attending Provider Instructions: Please change your dressings daily. Cover with dry 4x4 gauze and adhere with medipore tape. Please be aware that both the narcotic Percocet and plain Tylenol both contain Acetaminophen. You should NOT exceed more than 3grams of Acetaminophen within a 24 hour time period. Pending Studies at Discharge: Yes Studies:: surgical pathology Stand-Alone Forms: [facility], Smoking Cessation Medications and DC Order Prescriptions: New oxycodone-acetaminophen [Percocet] 5-325 mg tablet 1 - 2 tab PO .q4-6h PRN (Reason: pain, for initial therapy, max 6 tabs per day) Qty: 7 RF: 0 nystatin 100,000 unit/mL Suspension 10 ml PO QID Qty: 300 RF: 0 Eliquis 5 mg Tablet 5 mg PO BID Qty: 60 RF: 0 metoprolol succinate [Toprol XL] 50 mg tablet extended release 24 hr 50 mg PO DAILY Qty: 30 RF: 0 Continued aspirin 81 mg tablet,delayed release (DR/EC) 81 mg PO DAILY Qty: 90 RF: 2 clopidogrel 75 mg tablet 75 mg PO DAILY Qty: 90 RF: 3 omeprazole 20 mg Capsule,Delayed Release(Dr/Ec) 20 mg PO HS RF: 0 atorvastatin 80 mg tablet 80 mg PO DAILY RF: 0 Discontinued metoprolol succinate 25 mg tablet extended release 24 hr 25 mg PO DAILY Qty: 90 RF: 2 Discharge Orders: Discharge Order (Routine); Ordered 01/15/20 Ordered By: Anthony Morris/Other Patient Handouts: Low-Fiber Diet, Diverticulosis Diverticulitis Admission Data Admit Date/Time: 01/01/20 19:13 Attending Provider: Anthony Becerra Admit Provider: [place] Primary Care Provider: [place] Other Providers: [place] ; Nelson Coreas ; Rakesh Tse ; Trisha Vigil
== END 2020-01-15 13:00 | disposition home or self-care (01) | DRG 330 ==
LOC: ED 16:49 → SUATTDRO 19:13 → 2N 19:13 → 2E 01-05 00:33